=== PATIENT | female | born 1945 | race African-American/Black ===

== ENCOUNTER 2023-11-08 10:00 | Outpatient (RCR) | payer MEDICARE, MEDICAID, SELFPAY ==
--- NOTE | 2023-11-08 12:05 | OPREHPOC ---
Outpatient Therapy Plan of Care This is a Multidisciplinary Plan of Care that may contain components documented by all disciplines (PT, OT, and ST.) PT Problem 1 PT Problem #1 Knowledge Deficit PT Goal 1 Goal *indep with HEP *indep with self management of lymphedema: compression garment don/doffing, indep self manual lymph drainage Target Visit 10 PT Problem 2 PT Problem #2 Pain PT Goal 1 Goal *no pain over L arm Target Visit 10 PT Problem 3 PT Problem #3 Impaired Strength PT Goal 1 Goal increase strength of L shoulder, to improve using L arm for self and home activities: in standing L active shoulder ROM x 5 reps: 1* flexion to 95' 2* abduction to 90' Target Visit 10 PT Problem 4 PT Problem #4 Impaired Lymphatic System PT Goal 1 Goal decrease lymphedema over L UE: 1* circumferential measurement to 44 cm: 310 cm 2* no edema over dorsum of hand 3* no fibrotic tissue over forearm 4* pt obtain correct compression garment for L UE Target Visit 10
--- NOTE | 2023-11-08 12:05 | PTOPEVAL1 ---
Assessment and note entered by Myah Christy, PT Evaluation Information Assessment Status Evaluation Diagnosis L UE lymphedema, post mastectomy syndrome Other ICD-10 Condition Codes ( I 97.2 PT) Onset past year Subjective Information arm was swelling off/on since surgery and always went down in size, now staying big all the time; problems using L arm and lifting it up; have help at home with laundry, dishes; problems with clothes fitting over her L arm; does not drive--family or service rides; is R hand dominant; Reported Pain Level Pain Score 3: Self Report Additional Pain Score Comments light pain in L arm; heavy when try to lift arm, sore; Assessment PT Clinical Summary Jennifer has lymphedema over L UE, s/p breast mastectomy with radiation and chemotherapy in 2019. She has had treatment in the past, but reports arm is more swollen now and staying bigger. Issues with fit of clothing, unable to lift arm up and use arm much with home and self care tasks. With the evaluation: circumferential measurement of L arm is 99.7 cm larger than R with fibrotic tissue over forearm and puffy dorsum of hand and fingers; L shoulder decreased ROM and strength; Skilled PT services are indicated for lymphedema treatment: to include multilayer compression wraps, compression pump, L shoulder exercises and ROM increase with education for home exercises, self management of lymphedema and compression garment for her to obtain. Plan of Care Interventions Intermittent Compression pump,Lymphedema Compression Wraps Manual Lymph Drainage,Neuro Re-education,Patient Educati,Therapeutic Exercise,Other Other Interventions taping PT Services Indicated Yes Treatment Frequency and 2-3x/wk for 10 visits Duration These treatments will address the objective and functional deficits as defined above. The patient will be advanced safely and appropriately in order for the patient to progress towards his/her prior level of function. Additional exercises will be introduced and as well as a comprehensive home exercise program upon discharge, if needed, ?to ensure carryover of functional gains achieved in the clinic. This treatment plan has been reviewed and agreement upon by the patient.
--- NOTE | 2023-11-17 11:51 | PCPTNOTE ---
on 11-09-23: received a call from [phone], extension [phone], Marjorie--she asked about what garment pt needs; left message with the info; today--Jennifer called and asked about her compression reduction kit--she had not heard from insurance yet. Gave her above # to contact and get info about it.
--- NOTE | 2023-11-22 09:49 | PCPTNOTE ---
talked with pt and insurance rep on phone. Pt gave permission for her info to be faxed to [facility] for insurance auth for reduction kit. Also have order from for the compression kit and faxed to [facility]. Late entry for 11-18-23;
--- NOTE | 2023-12-09 13:37 | PCPTNOTE ---
pt did not show for today's appt; called her, she stated she did not have her velcro garment yet. Informed her of her next appt and to call if cannot come in.
--- NOTE | 2023-12-12 15:44 | PCPTNOTE ---
pt did not show for today's appt; called and talked with her. She stated she does not have her velcro garment reduction kit yet from her insurance. Discussed with her starting compression wraps for her arm. She stated she did not want her hand to be wrapped, because she cannot get it wet. Discussed wearing a glove that is waterproof over her L hand. She did not know what she wanted to do. She did say she will call her insurance company and see when she should expect it to arrive.
--- NOTE | 2023-12-20 11:06 | PCPTNOTE ---
pt called and canceled today's appt;
--- NOTE | 2023-12-23 11:55 | PCPTNOTE ---
pt did not show for today's appt; I called her, she stated she did not have her reduction kit yet for her arm. She is not interested in the compression wraps. Informed her that her remaining appt will be canceled. She is to call if any questions or when she gets her garment.
--- NOTE | 2024-01-24 12:01 | PCPTNOTE ---
PHYSICAL THERAPY DISCHARGE Dr. Cheryl Rodriguez had the PT evaluation on November 07 for UE lymphedema. She did not want the compression wraps for her L UE, but was interested in the velcro garment for compression. She was not able to obtain the required garment for treatment, so she did not return for treatment. Discharge PT. The goals were not addressed.
== END 2024-01-23 11:40 | disposition home or self-care (01) ==
LOC: ANHPT 10:00
PROVIDERS: PCP Internal Medicine Infectious Disease; Visit Provider Internal Medicine Infectious Disease
DX: I97.2 Postmastectomy lymphedema syndrome (principal)
CPT/HCPCS: 97162; 97530

== ENCOUNTER 2024-07-24 14:23 | Outpatient (CLI) | payer MEDICARE, MEDICAID, SELFPAY ==
--- NOTE | ~2024-07-24 | US_ITS ---
US breast LT limited 07/24/2024 14:55 Indication: Status post double mastectomy. Left chest lump. Procedure: High-resolution Limited ultrasound of the left chest in the area of palpable lump Comparison: No prior studies for comparison. Findings: In the area of palpable concern there is an oval circumscribed hypoechoic mass with interna l vascularity and posterior acoustic enhancement measuring 1.6 x 1.6 x 1 cm. No other masses are seen . Impression: 1: Complex heterogeneous 1.6 cm left chest wall mass in the area of palpable concern. BI-RADS CATEGORY 4-SUSPICIOUS ABNORMALITY RECOMMENDATION: Ultrasound-guided left chest wall biopsy recommended. Reviewed, dictated and finalized at location A. Impression: 1: Complex heterogeneous 1.6 cm left chest wall mass in the area of palpable co ncern. BI-RADS CATEGORY 4-SUSPICIOUS ABNORMALITY RECOMMENDATION: Ultrasound-guided left chest wall biopsy recommended.
--- OUTSIDE RECORDS SUMMARY | 2024-07-24 16:40 | XMS_ITS | Clinical Summary ---
Author Organization [facility] [employer] [facility] Address [address] [place] [address] Care Team Providers Care Procedure Rn Name Role Phone Cheryl Ramos MD Primary Care Provider Source Comments [facility],non-owned Affiliates and Associated Physician Practices is amultiple site organization consisting of ambulatory clinics and hospital sitesin [place] and [place]. This disclosure is being madepursuant to the Care Everywhere program and may not contain all information available regarding this patient. Last updated 17.[facility] [employer] [facility] Allergies Active Allergy Reactions Criticality Noted Date Comments Lisinopril Anaphylaxis High 07/26/2018 Losartan Swelling 02/21/2023 Tongue swelling Oxycodone Urticaria Medium 11/14/2023 Medications * Be aware that medications may not be up to date on this document. Alwaysverify current medications with the patient. simvastatin (ZOCOR) 40 MG tablet Take 1 (one) tablet by mouth once daily 9 Active losartan-hydroC HLOROthiazide (HYZAAR) 100-12.5 MG tablet Take 1 (one) tablet by mouth once daily 9 Active ibuprofen (MOTRIN) 600 MG tablet Take 1 tablet by mouth every 6 hours as needed for Pain 40 tablet 9 Active docusate sodium (COLACE) 100 MG capsule Take 1 capsule by mouth once daily 40 capsule 9 Active Additional Information Patient taking differently:100 mg OralDAILY PRN, Reported on 09/26/2023 irbesartan-hydr oCHLOROthiazide (AVALIDE) 150-12.5 MG tablet Take 1 (one) tablet by mouth once daily 9 Active carvedilol (Coreg) 12.5 MG tablet Take 1 (one) tablet by mouth 2 times daily Active potassium chloride ER (Klor-Con M) 20 MEQ tablet Take 1 (one) tablet by mouth once daily Active pantoprazole EC (Protonix) 20 MG tablet Take 1 (one) tablet by mouth once daily Active hydrALAZINE (Apresoline) 25 MG tablet Take 1 (one) tablet by mouth 2 times daily Active furosemide (Lasix) 40 MG tablet Take 1 (one) tablet by mouth once daily Active ferrous sulfate EC (Ferrous Sulfate) 324 (65 Fe) MG tablet Take 1 (one) tablet by mouth once daily 4 Active vitamin D, ergocalciferol, (Drisdol) 1.25 MG (97849 UT) capsule Take 1 (one) capsule by mouth every 7 days 4 Active dilTIAZem coated beads 24hr (Cardizem CD) 240 MG capsule Take 1 (one) capsule by mouth once daily Active calcitriol (Rocaltrol) 0.25 MCG capsule Take 1 (one) capsule by mouth once daily Active aspirin (Aspirin) 81 MG chew tablet Take 1 (one) tablet by mouth once daily Active mometasone (Nasonex) 50 MCG/ACT nasal spray Baudette 1 (one) spray to 2 (two) sprays into each nostril once daily 51 g 3 4 Active Active Problems Problem Noted Date Diagnosed Date 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 Follow up PRN. Essential hypertension 07/28/2018 Assessment & Plan (03/12/2019 3:55 PM MARINE DIESEL TECHNICIAN): No changes today. Continue coreg 3.125mg BID, and Irbesartan/HCTZ 150/12.5mg. Hyperlipidemia 07/28/2018 Nonspecific abnormal electrocardiogram (ECG) (EK G) 07/28/2018 SPARKS (dyspnea on exertion) 07/28/2018 Assessment & Plan (03/12/2019 3:55 PM MARINE DIESEL TECHNICIAN): Suspect secondary to deconditioning. Follow UP PRN. DSE negative for ischemia with no significant valvular abnormalities along with normal EF. Grade I diastolic dysfunction. HTN management, per PCP. Immunizations Immunization Administration Dates Next Due INFLUENZA VACCINE 01/02/2019,02/17/2018 INFLUENZA VACCINE, ADJUVANTE D, TRIV. (FLUAD TRIVALENT; 65Y+) (AIIV3) 02/07/2018 PNEUMOCOCCAL PCV7 CONJ, PEDS 02/02/2019 Family History Medical History Relation Name Comments CAD (Coronary Artery Disease) Neg Hx CVA Neg Hx Cancer - Colon Neg Hx Cancer - Ovarian Neg Hx Cancer - Prostate Neg Hx Cancer - Uterine Neg Hx Depression Neg Hx Diabetes - Gestational Neg Hx Diabetes - Type 1 Neg Hx Diabetes - Type 2 Neg Hx Hyperlipidemia Neg Hx Hypertension Neg Hx Osteoporosis Neg Hx Pulmonary Embolism Neg Hx Social History Tobacco Use Types Packs/Day Years Used Date Smoking Tobacco: Never Smokeless Tobacco: Never Tobacco Cessation:Counseling Given: Not Answered Alcohol Use Standard Drinks/Week Comments No 0 (1 standard drink = 0.6 oz pur e alcohol) Comments No Sex and Gender Information Value Date Recorded Sex Assigned at Not on file Legal Sex Female 8:43 AM MARINE DIESEL TECHNICIAN Gender Identity Not on file Sexual Orientation Not on file Last Filed Vital Signs Vital Sign Reading Time Taken Comments Blood Pressure 189/72 11/14/2023 12:47 PM CDT Pulse 62 11/14/2023 12:47 PM CDT Temperature 36.9 C (98.4 F) 08/06/2018 8:36 AM CDT Respiratory Rate 16 08/06/2018 8:36 AM CDT Oxygen Saturation 97% 11/14/2023 12:47 PM CDT Inhaled Oxygen Concentration - - Weight 64.4 kg (142 lb) 11/14/2023 12:47 PM CDT Height 167.6 cm (5' 6 ) 11/14/2023 12:47 PM CDT Body Mass Index 22.92 11/14/2023 12:47 PM CDT Plan of Treatment Upcoming Encounters Date Type Department Care Team (Late st Contact Info) Description 11/12/2024 12:30 PM CDT Testing Visit [facility] - [facility]NT [address] [place] [address] Arvind Frye, PhD [address] [place] [address] 11/12/2024 1:00 PM CDT Office Visit [facility] - [facility] [address], [place] [address] Skinny Costa MD [address] [facility] [address] [place] [address] Health Maintenance Due Date Last Done Comments BONE DENSITY TESTING 1945 HEPATITIS C SCREENING 06/15/1964 DTAP/TDAP/TD VACCINES (1 - Tdap) 1965 PNEUMOCOCCAL VACCINE 50+ (1 of 1 - PCV) 1996 ZOSTER VACCINE (1 of 2) 1996 Respiratory Syncytial Virus (RSV) Vaccine Pt: or over 60 yrs (1 - 1-dose 75+ series) 2021 COVID-19 VACCINE ( - 2023-2 5 season) 2023 DEPRESSION SCREENING 04/04/2024 MEDICARE AWV CALENDAR YEAR 2024 INFLUENZA VACCINE (Season Ended) 2024 01/02/2019, 02/17/2018, 02/07/2018 HEPATITIS B VACCINE Aged Out No longe r eligible based on patient's age to complete this topic HIB VACCINE Aged Out No longer eligi ble based on patient's age to complete this topic HPV VACCINE Aged Out No longer eligi ble based on patient's age to complete this topic MENINGOCOCCAL (Group B) VACCINE SHARED DECISION-MAKING Aged Out No longer eligible based on patient's age to complete this topic MENINGOCOCCAL GROUPS A/C/Y/W VACCINE Aged Out No longer eligible b ased on patient's age to complete this topic Insurance MEDICAID - [place] [facility] MANAGED MEDICARE ADV Advance Directives * Full Code (Latest Code Status on File) Date Activated Date Inactivated Comments 08/03/2018 3:27 PM 08/06/2018 2:22 PM Care Teams Procedure Rn Relationship Specialty Start Date End Date Cheryl Ramos MD [address] [place], [place] [id number] PCP - General 11/08/18
--- OUTSIDE RECORDS SUMMARY | 2024-07-24 16:40 | XMS_ITS ---
Author Organization [facility] Address [address] [place], [place] [id number] Care Team Providers Care Aoc Aadc Operations Staff Officer Name Role Phone KYLEIGH LEIVA Unavailable [phone] Cheryl Ramos Unavailable Unavailable REASON FOR VISIT *General care Medications Medication SIG (Take, Route, Fr equency, Duration) Notes Start Date End Date Status traMADol HCl 50 MG 1 tablet as needed O rally Every 4-6 hours for 5 days 03/10/2023 Active Encounters Encounter Location Date Provider Diagnosis [facility] [address] [place], [place] [id number] 03/12/2024 KYLEIGH LEIVA Fungal infection of nail B35.1 ; Pain in right toe(s) M79.674 ; Pain in left toe(s) M79.675 and 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, bilateral legs I70.213 Assessments Encounter Date Diagnosis (ICD Code) Assessment Notes Treatment Notes Treatment Clinical Notes Section Notes 03/12/2024 Fungal infection of nail (ICD-10 - B35.1) Nails 1-5 Bilateral were debrided extensively with nail nippers and emery board, reducing length and girth to pink healthy tissue with any subungual debris and necrotic tissue removed 03/12/2024 Pain in right toe(s) (ICD-10 - M79.674) 03/12/2024 Pain in left toe(s) (ICD-10 - M79.675) 03/12/2024 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, bilateral legs (ICD-10 - I70.213) Plan Of Treatment Treatment Notes Assessment Notes Fungal infection of nail Nails 1-5 Bilat eral were debrided extensively with nail nippers and emery board, reducing length and girth to pink healthy tissue with any subungual debris and necrotic tissue removed Next Appt Details Follow Up: 9 weeks, Reason: Provider Name:KYLEIGH C WENDI ARMANI, 09/10/2024 02:20:00 PM, [address] [facility] [address], [place], [id number], Progress Notes * INDU COURTNEYDOB: [birth year] (79 yo F)Acc No.[id number]:03/12/2024 Patient: COURTNEY MOISE Provider: Emilie Leiva DPM :1945 A ge:78 Y S ex:Female Date:03/12/2024 Address:[address] [place], [place] [id number] Subjective: * Chief Complaints: * * General care * HPI: H PI: General care P atient presents to the office for at risk foot care. Patient states that their nails are thickened, elongated and painful. Patient states that it is aggravated by shoe gear. Onset is gradual. Patient denies being diabetic. Patient denies taking prescription blood thinners but does take a daily aspirin. Date last seen by Dr. ramos was 02/2024. Initials sea. * ROS: G eneral / Constitutional: Patient denies c hange in appetite, fatigue, chills, fever.? C ardiovascular: Chest pain d enies. N eurologic: Loss of use of extremity d enies. * Medical History: * Surgical History: * Hospitalization/Major Diagno stic Procedure: * Medications: T akingtraMADol HCl 50 MG Tablet 1 tablet as needed Orally Every 4-6 hours Medication List reviewed and reconciled with the patientTaking traMADol HCl 50 MG Tablet 1 tablet as needed Orally Every 4-6 hours Medication List reviewed and reconciled with the patient Objective: * Vitals: * Examination: P hysical Examination: Gen: T he patient is awake, alert, well developed, well groomed and well nourished. They are in no apparent distress. . Musc: F oot structure is normal bilateral. Muscle strength is 5/5 to all joints bilaterally. There is no pain on palpation. . Derm: T here is absent hair growth on bilateral feet. There are pigmentary changes of bilateral foot. The skin color is red. The skin texture is thin and shiny. Distal cooling noted in bilateral feet. Nails are thick, discolored, and dystrophic with subungual debris. They are painful to palpation. . Neuro: G rossly intact to light touch bilateral . Vasc: P osterior tibialis pulse 0/4 bilaterally. Dorsalis pedis pulse 0/4 bilaterally. No edema noted. Capillary fill time > 3 seconds to all digits. . Assessment: * Assessment: 1. F ungal infection of nail - B35.1 (Primary) 2 . P ain in right toe(s) - M79.674 3 . P ain in left toe(s) - M79.675 4 . A therosclerosis of big sandy arteries of extremities with intermittent claudication, bilateral legs - I70.213 ? Plan: * Treatment: * Procedure Codes: * Follow Up: 9 weeks * Billing Information: * Visit Code: 16829 Office Visit, Est Pt., Level 3. * Procedure Codes: * Sign off status: Completed true * Provider: Emilie Leiva DPM Date: 05/13/2023 Generated for Susanna george/Alexander/Adelfo on: 0 07/24/2024 04:40 PM CDT History and Physical Notes * HPI (History of Present Illness) Category Sub-Category Detail Notes Category Not es HPI General care Patient presents to the office for at risk foot care. Patient states that their nails are thickened, elongated and painful. Patient states that it is aggravated by shoe gear. Onset is gradual. Patient denies being diabetic. Patient denies taking prescription blood thinners but does take a daily aspirin. Date last seen by Dr. ramos was 02/2024. Initials sea Examination Category Sub-Category Detail Notes Category Not es Physical Examination Gen: The patient is awake, alert, well developed, well groomed and well nourished. They are in no apparent distress. Vasc: Posterior tibialis p ulse 0/4 bilaterally. Dorsalis pedis pulse 0/4 bilaterally. No edema noted. Capillary fill time > 3 seconds to all digits. Neuro: Grossly intact to li ght touch bilateral Musc: Foot structure is no rmal bilateral. Muscle strength is 5/5 to all joints bilaterally. There is no pain on palpation. Derm: There is absent hair growth on bilateral feet. There are pigmentary changes of bilateral foot. The skin color is red. The skin texture is thin and shiny. Distal cooling noted in bilateral feet. Nails are thick, discolored, and dystrophic with subungual debris. They are painful to palpation.
--- OUTSIDE RECORDS SUMMARY | 2024-07-24 16:40 | XMS_ITS | Clinical Summary ---
Author Organization [facility] Address [address] [place] [address] Care Team Providers Care Professor Of Surgery Name Role Phone Mark Ferrer MD, Wilder P Unavailable [phone] Cheryl Simon MD Primary Care Provider [phone] Allergies Active Allergy Reactions Criticality Noted Date Comments Losartan Swelling 02/21/2023 Tongue swelling Medications carvedilol (COREG) 12.5 MG tablet Take 1 tablet (12.5 mg total) by mouth 2 (two) times daily. Active dilTIAZem CD (CARDIZEM CD) 240 MG 24 hr capsule Take 120 mg by mouth daily. Active simvastatin (ZOCOR) 40 MG tablet Take 1 tablet (40 mg total) by mouth nightly at bedtime. Active calcitriol (ROCALTROL) 0.25 MCG capsule Take 1 capsule (0.25 mcg total) by mouth daily. Active hydrALAZINE (APRESOLINE) 50 MG tablet Take 0.5 tablets (25 mg total) by mouth 2 (two) times daily. Active furosemide (LASIX) 40 MG tablet Take 1 tablet (40 mg total) by mouth daily. Active famotidine (PEPCID) 20 MG tablet Take 1 tablet (20 mg total) by mouth daily. Active aspirin 81 MG chewable tablet Chew 1 tablet (81 mg total) by mouth daily. Active docusate sodium (COLACE) 100 MG capsule Take 1 capsule (100 mg total) by mouth daily. Active loratadine (CLARITIN) 10 MG tablet Take 1 tablet (10 mg total) by mouth daily. Active potassium chloride CR (KLOR-CON M) 20 MEQ tablet Take 1 tablet (20 mEq total) by mouth daily. Active Encounters Date Type Department Care Team Description 07/09/2024 1:14 PM CDT - 07/09/2024 11:59 PM CDT Hospital Encounter [facility] Mammography [address] [place] [address] Cheryl Simon MD Discharge Disposition: Home or Self Care (Routine Discharge) 07/09/2024 Travel 05/30/2024 Travel from Last 3 Months Social History Tobacco Use Types Packs/Day Years Used Date Smoking Tobacco: Never Smokeless Tobacco: Never Alcohol Use Standard Drinks/Week Comments Not Currently 0 (1 standard drink = 0.6 oz pur e alcohol) Comments No Sex and Gender Information Value Date Recorded Sex Assigned at Female 04/30/2024 3:45 PM STOREPERSON Legal Sex Female 5:55 PM CDT Gender Identity Not on file Sexual Orientation Not on file Last Filed Vital Signs Vital Sign Reading Time Taken Comments Blood Pressure 157/59 03/04/2023 12:40 PM STOREPERSON Pulse 72 03/04/2023 12:40 PM STOREPERSON Temperature 36.4 C (97.5 F) 03/04/2023 12:40 PM STOREPERSON Respiratory Rate 16 03/04/2023 12:40 PM STOREPERSON Oxygen Saturation 96% 03/04/2023 12:40 PM STOREPERSON Inhaled Oxygen Concentration - - Weight 66.3 kg (146 lb 2.6 oz) 03/04/2023 9:00 A M STOREPERSON Height 167.6 cm (5' 6 ) 03/04/2023 9:00 AM STOREPERSON Body Mass Index 23.59 03/04/2023 9:00 AM STOREPERSON Plan of Treatment Health Maintenance Due Date Last Done Comments Hepatitis C 1963 Annual Medicare Wellness Visit 06/21/2011 RSV Immunization or 60+ Years (1 - 1-dose 75+ series) 2021 Zoster Vaccines (3 of 3) 03/17/2023 01/20/2023, 10/03 COVID-19 Vaccine ( season) 2023 08/18/2022, 11/04/2021, 02/27/2021, Additional history exists DTaP, Tdap and Td Vaccines (2 - Td or Tdap) 01/29/2029 01/29/2019 Pneumococcal Vaccine: 50+ Years Completed 09/19/2020, 02/15/2020, 02/02/2019, Additional history exists Dexa Scan (General) Completed 05/30/2024 Meningococcal B Vaccine Aged Out No l onger eligible based on patient's age to complete this topic Meningococcal Vaccine Aged Out No michael oswald eligible based on patient's age to complete this topic RSV Immunizations Under 20 Months Aged Out No longer eligible based on patient's age to complete this topic Procedures Procedure Name Priority Date/Time Associated Diagnosis Comments US BREAST RT [employer] Routine 07/09/2024 2:10 PM CDT Unspecified lump in the right breast, upper outer quadrant MG DIAG W NATHALIA RT DIGI Routine 07/09/2024 1:37 PM CDT Unspecified lump in the right breast, unspecified quadrant BONE DENSITY/DEXA Routine 05/30/2024 10: 17 AM STOREPERSON Asymptomatic menopausal state from Last 3 Months Results * US BREAST RT [employer] (07/09/2024 2:10 PM CDT) Anatomical Region Laterality Modality Breast Right Ultrasound 07/09/2024 1:54 PM CDT Impressions 07/09/2024 1:58 PM CDT ===== IMPRESSION: ===== 1. No mammographic findings suggestive of malignancy. No imaging abnormality to correspond with the patient's palpable lump. 2. No imaging of the left breast is provided today, according to the patient's history and electronic medical record, previously in 2022 left chest wall biopsy was recommended, patient does not recall this. Clinical follow-up recommended for need for additional left-sided imaging or biopsy. Assessment: ACR BI-RADS 2 - BENIGN FINDING(S) Recommendation: 1: Routine Screening Bilateral Comments: In the setting of palpable abnormality with negative imaging findings, need for further evaluation or palpation guided biopsy to be determined clinically. Results and recommendations discussed with the patient in person by Dr. Mendenhall. Technologist, Yue, isaiah. Ordered By: CHERYL SIMON Interpreted By: Masood Mendenhall, 07/09/2024 1:54 PM Narrative 07/09/2024 1:58 PM CDT [facility] [address] [place] [address] Examination: Unilateral right diagnostic mammogram and ultrasound [id number] Exam Date/Time: 07/09/2024 1:21 PM Reason For Exam: Palpable lump right breast. Prior left mastectomy for breast cancer. Comparison: 03/14/2023 Technique: Digital diagnostic mammography and ultrasound of the of the rightbreast was performed. This study was read with the assistance of a computer-aided detection system. 3D tomographic images were obtained. Tissue density: There are scattered areas of fibroglandular density. Findings: Mammogram: No suspicious microcalcification, architectural distortion, or mass. No significant interval change. No mammographic abnormality to correspond with the patient's right breast palpable lump. Ultrasound: 2:00 position 7 cm from the nipple and 6:00 position. Normal glandular tissue, normal subcutaneous tissue, no evidence of abnormal mass or collection. Procedure Note Masood Mendenhall MD - 07/09/2024 [facility] [address] [place] [address] Examination: Unilateral right diagnostic mammogram and ultrasound [id number] Exam Date/Time: 07/09/2024 1:21 PM Reason For Exam: Palpable lump right breast. Prior left mastectomy for breast cancer. Comparison: 03/14/2023 Technique: Digital diagnostic mammography and ultrasound of the of therightbreast was performed. This study was read with the assistance of [employer]-aided detection system. 3D tomographic images were obtained. Tissue density: There are scattered areas of fibroglandular density. Findings: Mammogram: No suspicious microcalcification, architectural distortion, ormass. No significant interval change. No mammographic abnormality tocorrespond with the patient's right breast palpable lump. Ultrasound: 2:00 position 7 cm from the nipple and 6:00 position. Normalglandular tissue, normal subcutaneous tissue, no evidence of abnormal massor collection. ===== IMPRESSION: ===== 1. No mammographic findings suggestive of malignancy. No imagingabnormality to correspond with the patient's palpable lump. 2. No imaging of the left breast is provided today, according to thepatient's history and electronic medical record, previously in 2022 leftchest wall biopsy was recommended, patient does not recall this. Clinicalfollow-up recommended for need for additional left-sided imaging orbiopsy. Assessment: ACR BI-RADS 2 - BENIGN FINDING(S) Recommendation: 1: Routine Screening Bilateral Comments: In the setting of palpable abnormality with negative imagingfindings, need for further evaluation or palpation guided biopsy to bedetermined clinically. Results and recommendations discussed with the patient in person by . Technologist, isaiah Turner. Ordered By: CHERYL SIMON Interpreted By: Masood Mendenhall, 07/09/2024 1:54 PM us Cheryl Simon MD ULTRASOUND Final Result * MG TARASG W NATHALIA RT DIGI (07/09/2024 1:37 PM CDT) Anatomical Region Laterality Modality Breast Right Mammography 07/09/2024 1:54 PM CDT Impressions 07/09/2024 1:58 PM CDT ===== IMPRESSION: ===== 1. No mammographic findings suggestive of malignancy. No imaging abnormality to correspond with the patient's palpable lump. 2. No imaging of the left breast is provided today, according to the patient's history and electronic medical record, previously in 2022 left chest wall biopsy was recommended, patient does not recall this. Clinical follow-up recommended for need for additional left-sided imaging or biopsy. Assessment: ACR BI-RADS 2 - BENIGN FINDING(S) Recommendation: 1: Routine Screening Bilateral Comments: In the setting of palpable abnormality with negative imaging findings, need for further evaluation or palpation guided biopsy to be determined clinically. Results and recommendations discussed with the patient in person by Dr. Mendenhall. Technologist, isaiah Turner. Ordered By: CHERYL SIMON Interpreted By: Masood Mendenhall, 07/09/2024 1:54 PM Narrative 07/09/2024 1:58 PM CDT [facility] [address] [place] [address] Examination: Unilateral right diagnostic mammogram and ultrasound [id number] Exam Date/Time: 07/09/2024 1:21 PM Reason For Exam: Palpable lump right breast. Prior left mastectomy for breast cancer. Comparison: 03/14/2023 Technique: Digital diagnostic mammography and ultrasound of the of the rightbreast was performed. This study was read with the assistance of a computer-aided detection system. 3D tomographic images were obtained. Tissue density: There are scattered areas of fibroglandular density. Findings: Mammogram: No suspicious microcalcification, architectural distortion, or mass. No significant interval change. No mammographic abnormality to correspond with the patient's right breast palpable lump. Ultrasound: 2:00 position 7 cm from the nipple and 6:00 position. Normal glandular tissue, normal subcutaneous tissue, no evidence of abnormal mass or collection. us Cheryl Simon MD MAMMO Final Result * BONE DENSITY/DEXA (05/30/2024 10:17 AM STOREPERSON) Anatomical Region Laterality Modality Bone Mammography 05/30/2024 10:2 2 AM STOREPERSON Impressions 05/30/2024 10:22 AM STOREPERSON IMPRESSION: WHO Classification: Osteopenia RECOMMENDATIONS: All patients should ensure an adequate intake of dietary calcium and vitamin D. The NOF recommend adults under the age of 50 need 1000 mg of calcium and 400-800 IU of vitamin D daily. Effective therapy for the prevention and treatment of osteoporosis include bisphosphonates. Follow-up: People with diagnosed cases of osteoporosis or at high risk for fracture should have regular bone mineral density test. For patients eligible for Medicare, routine testing is allowed once every 2 years. Testing frequency can be increased to one year for patients who have rapidly progressing disease, those who are receiving or discontinuing medical therapy to restore bone mass, or have additional risk factors. Referred By: CHERYL SIMON Interpreted By: Matthew Haji MD, 05/30/2024 10:22 AM Narrative 05/30/2024 10:22 AM STOREPERSON [facility] [address] [place] [address] EXAMINATION: BONE DENSITY/DEXA INDICATIONS: Asymptomatic menopausal state COMPARISON: None TECHNIQUE: DEXA bone mineral density evaluation was performed in the AP projection over the lumbar spine and both hips utilizing standard imaging techniques. ASSESSMENT: The BMD measured at the AP spine L1-L4 is 0.952 g/cm? with a T-score of -0.9. The BMD measured at the left femoral neck is 0.711 g/cm? with a T-score of -1.2. The BMD measured at the left hip is 0.918 g/cm? with a T-score of -0.2. The BMD measured at the right femoral neck is 0.774 g/cm? with a T-score of - 0.7. The BMD measured at the right hip is 0.964 g/cm? with a T-score of 0.2. FRAX 10-year fracture risk: Major Osteoporotic Fracture: 6.5% Hip Fracture: 1.4% Procedure Note Matthew Haji MD - 05/30/2024 [facility] [address] [place] [address] EXAMINATION: BONE DENSITY/DEXA INDICATIONS: Asymptomatic menopausal state COMPARISON: None TECHNIQUE: DEXA bone mineral density evaluation was performed in the APprojection over the lumbar spine and both hips utilizing standard imagingtechniques. ASSESSMENT: The BMD measured at the AP spine L1-L4 is 0.952 g/cm? with a T-score of-0.9. The BMD measured at the left femoral neck is 0.711 g/cm? with a T-score of-1.2. The BMD measured at the left hip is 0.918 g/cm? with a T-score of -0.2. The BMD measured at the right femoral neck is 0.774 g/cm? with a T-scoreof -0.7. The BMD measured at the right hip is 0.964 g/cm? with a T-score of 0.2. FRAX 10-year fracture risk: Major Osteoporotic Fracture: 6.5% Hip Fracture: 1.4% IMPRESSION: WHO Classification: Osteopenia RECOMMENDATIONS: All patients should ensure an adequate intake of dietary calcium andvitamin D. The NOF recommend adults under the age of 50 need 1000 mg ofcalcium and 400-800 IU of vitamin D daily. Effective therapy for theprevention and treatment of osteoporosis include bisphosphonates. Follow-up: People with diagnosed cases of osteoporosis or at high risk for fractureshould have regular bone mineral density test. For patients eligible forMedicare, routine testing is allowed once every 2 years. Testing frequencycan be increased to one year for patients who have rapidly progressingdisease, those who are receiving or discontinuing medical therapy torestore bone mass, or have additional risk factors. Referred By: CHERYL SIMON Interpreted By: Matthew Haji MD, 05/30/2024 10:22 AM Cheryl Simon MD DEXA Final Result from Last 3 Months Insurance MEDICAID [facility] Care Teams Professor Of Surgery Relationship Specialty Start Date End Date Cheryl Simon MD [address] [place] [address] PCP - General INTERNAL MEDICINE 02/21/23 [place] [id number] [phone] CARDIOVASCULAR DISEASE 02/21/23
--- OUTSIDE RECORDS SUMMARY | 2024-07-24 16:40 | XMS_ITS | CONTINUITY OF CARE DOCUMENT ---
Author Name yovani pina Address Unknown Organization [facility] Address [address] [place] [address] Phone [phone] Care Team Providers Care Bread Molder Name Role Phone Wilder Flores MD Unavailable [phone] SABRINA SIMON MD Unavailable [phone] SABRINA SIMON MD Unavailable [phone] PROBLEMS Condition Status Date Provider Notes Cardiology examination active Wiledr Flores MD Hyperlipidemia active Wilder Flores MD Hypertension active Wilder Flores MD Breast Cancer active Wilder Flores MD (Hist ory of) Pulmonary hypertension active Wilder Flores MD Leg pain, right active Mariana Ventimiglia 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 Mitral regurgitation, mild active Mariana Ve ntimiglia INSTRUCTOR OF NURSING Bradycardia active Mariana Ventimiglia INSTRUCTOR OF NURSING ENCOUNTERS Date Type Provider Location Encounter Diag nosis - In-person encounter Office Visit Seymour Morales MD [facility] Office - In-person encounter Office Visit Wilder Flores MD [place] [facility] - In-person encounter Office Visit Wilder Flores MD [facility] Bradycardia - In-person encounter Office Visit Wilder Flores MD [place] [facility] - In-person encounter Office Visit Wilder Flores MD [place] [facility] - In-person encounter Office Visit Wilder Flores MD [facility] Leg pain, rightMitral regurgitation, mil d - In-person encounter Office Visit Wilder Flores MD [place] [facility] - In-person encounter Office Visit Wilder Flores MD [facility] Cardiology examinationHyperlipidemiaHypertensionBreast CancerPulmonary hypertension VITAL SIGNS Date Observation Value Provider Body Mass Index (Ratio) 23.79 kg/m2 Zelalem Morales MD blood pressure, diastolic 83 mm[Hg] Diana Segundo blood pressure, systolic 171 mm[Hg] Heather Bankss pulse rate 74 /min Ngoc charlton oxygen saturation, oximetry 97 % Ngoc Bankss weight E&M 143 [lb_av] Ngoc Banks s blood pressure, cuff size regular Diana cam Bankss height E&M 65 [in_i] Ngoc Banks s Body Mass Index (Ratio) 24.13 kg/m2 Judson Flores MD blood pressure, diastolic 88 mm[Hg] Nickie Anne blood pressure, systolic 174 mm[Hg] [facility], oximetry 97 % [facility] rate E&M 16 /min [facility] pulse rate 65 /min [facility] 145 [lb_av] [facility] blood pressure, cuff size regular Nickie Anne height E&M 65 [in_i] Darianstefany Anne Body Mass Index (Ratio) 24.13 kg/m2 Judson Flores MD blood pressure, diastolic 83 mm[Hg] Taylor nkLogic blood pressure, systolic 169 mm[Hg] Yaritza kLog blood pressure, cuff size regular [facility], diastolic 83 mm[Hg] [facility] blood pressure, systolic 169 mm[Hg] Lynette [facility] oxygen saturation, oximetry 98 % [facility] respiratory rate E&M 16 /min [facility] pulse rate 51 /min [facility] weight E&M 145 [lb_av] [facility] height E&M 65 [in_i] [facility] Body Mass Index (Ratio) 24.29 kg/m2 Judson Flores MD blood pressure, cuff size regular Fabrice [facility] blood pressure, diastolic 67 mm[Hg] [facility] blood pressure, systolic 129 mm[Hg] [facility] pulse rate 57 /min [facility] oxygen saturation, oximetry 97 % [facility] respiratory rate E&M 12 /min [facility] weight E&M 146 [lb_av] Ernst height E&M 65 [in_i] Ernst [facility] y Body Mass Index (Ratio) 25.79 kg/m2 Judson Flores MD blood pressure, diastolic 73 mm[Hg] Jessica Stafford blood pressure, systolic 140 mm[Hg] Mag Stafford pulse rate 51 /min Abbie Stafford blood pressure, cuff size large An nilam Stafford oxygen saturation, oximetry 97 % Abbie Stafford weight E&M 155 [lb_av] Abbie Stafford height E&M 65 [in_i] Abbie Rivera Body Mass Index (Ratio) 26.66 kg/m2 Judson Flores MD blood pressure, diastolic -1 mm[Hg] Taylor nkLogkaycee blood pressure, systolic 171 mm[Hg] Yaritza Ferrisogkaycee blood pressure, diastolic 78 mm[Hg] yajaira Sven blood pressure, systolic 171 mm[Hg] Jennifer roland Sven oxygen saturation, oximetry 96 % Amena Sven pulse rate 63 /min Amena Sven respiratory rate E&M 16 /min Amena Wu feliciano weight E&M 160.2 [lb_av] Amena Sven height E&M 65 [in_i] Amena Sven Body Mass Index (Ratio) 29.12 kg/m2 Judson Flores MD blood pressure, diastolic 92 mm[Hg] Sa ra Bradshaw blood pressure, systolic 198 mm[Hg] Marylin a Bradshaw oxygen saturation, oximetry 97 % Melissa Bradshaw respiratory rate E&M 18 /min Melissa Si ms pulse rate 79 /min Melissa Rbadshaw blood pressure, cuff size regular Sa ra Bradshaw weight E&M 175 [lb_av] Melissa Bradshaw height E&M 65 [in_i] Melissa Bradshaw Body Mass Index (Ratio) 29.12 kg/m2 Judson Flores MD blood pressure, diastolic 79 mm[Hg] Taylor nkLogic blood pressure, systolic 162 mm[Hg] Yaritza kLogic blood pressure, diastolic 79 mm[Hg] Ch astity Radha blood pressure, systolic 162 mm[Hg] Keren stity Radha oxygen saturation, oximetry 96 % Chastity Radha pulse rate 71 /min [facility] height E&M 65 [in_i] [facility] weight E&M 175 [lb_av] [facility] respiratory rate E&M 16 /min Ron Garcia ALLERGIES Allergy Name Onset Date Reaction Criticality Status LOSARTAN High Criticality active HISTORY OF MEDICATION USE Medication Status Instructions Dates Provider Indications Com ments carvedilol 12.5 mg tablet active TAKE 1 TABLET BY MOUTH TWICE DAILY Gladys Rushi carvedilol 12.5 mg tablet completed Take 1 tablet by mouth twice a day [facility] 50 mg tablet active TAKE 1 TABLET BY MOUTH TWICE A DAY Wilder Flores MD pantoprazole 20 mg tablet,delayed release (DR/EC) active TAKE 1 TABLET BY MOUTH EVERY MORNING Darian Anne nifedipine 90 mg tablet extended release 24hr active 1 tablet by mouth once a day Mariana Singhmiglia INSTRUCTOR OF NURSING ferrous sulfate 324 mg (65 mg iron) tablet,delayed release (DR/EC) active TAKE 1 TABLET BY MOUTH EVERY DAY Nadine Ross pantoprazole 20 mg tablet,delayed release (DR/EC) completed TAKE 1 TABLET BY MOUTH EVERY DAY - Mariana Singhmiglia INSTRUCTOR OF NURSING diltiazem HCl (Cardizem CD) 240 mg capsule,extende d release 24hr completed TAKE 1 CAPSULE BY MOUTH ONCE DAILY - Mariana Ventimiglia INSTRUCTOR OF NURSING calcitriol 0.25 mcg capsule active Take 1 capsule by mouth once a day [facility] diltiazem HCl (Cardizem CD) 240 mg capsule,extende d release 24hr completed Take 1 capsule by mouth once a day - Ernst carvedilol 12.5 mg tablet completed TAKE 1 TABLET BY MOUTH TWICE DAILY - Mariana Ventimiglia INSTRUCTOR OF NURSING diltiazem HCl 240 mg capsule,extende d release 24hr completed TAKE 1 CAPSULE BY MOUTH DAILY - Kassy Yancey hydralazine 25 mg tablet completed TAKE 1 TABLET BY MOUTH TWICE A DAY - Wilder Flores MD potassium chloride 20 mEq tablet,ER particles/cryst als active TAKE 1 TABLET BY MOUTH EVERY DAY [facility] furosemide 40 mg tablet active TAKE 1 TABLET DAILY Nadine Ross carvedilol 12.5 mg tablet completed Take 1 tablet by mouth twice a day - Gladys Mccoy diltiazem HCl 240 mg tablet extended release 24 hr completed 1 tablet once a day - Veronica Erasto carvedilol 12.5 mg tablet completed Take 1 tablet by mouth twice a day - Wilder Flores MD loratadine 10 mg tablet active Take 1 tablet by mouth once a day Yamel Garcia Aspirin Low Dose active Take 1 tablet by mouth once a day Yamel Garcia Gas Relief (simethicone) 180 mg capsule active Take 1 capsule by mouth once a day Yamel Garcia Stool Softener unspecified unspecified active Take 1 capsule by mouth as needed Yamel Garcia carvedilol 3.125 mg tablet completed TAKE ONE (1) TABLET BY MOUTH TWICE DAILY - Yamel Garcia simvastatin 40 mg tablet active TAKE 1 TABLET BY MOUTH EVERY DAY DIRECTED Yamel Garcia irbesartan-hydr ochlorothiazide 150-12.5 mg tablet completed TAKE ONE (1) TABLET BY MOUTH TWICE DAILY; *PATIENT NEEDS APPOINTMENT* - Yamel Garcia SOCIAL HISTORY Date Observation Value Provider personal history of marijuana use no Mariana Mazariegos [facility] drug use no Mariana Singhmig reji [facility] alcohol use no Marianagregory Singhmig reji [facility] passive cigarette sm kate exposure no Marianagregory [facility] smoking status Never smoker Mariana escalera [facility] personal history of marijuana use no Wilder Flores MD drug use no Wilder Wu alcohol use no Wilder Wu passive cigarette sm kate exposure no Wilder Flores MD smoking status Never smoker Wilder Flores MD personal history of marijuana use no Mariana Ventimiglia INSTRUCTOR OF NURSING drug use no Nadine Ross alcohol use no Nadine Ross passive cigarette sm kate exposure no Nadine Ross smoking status Never smoker Nadine Ross drug use no Wilder Wu alcohol use no Wilder Wu passive cigarette sm kate exposure no Wilder Flores MD smoking status Never smoker Wilder Flores MD drug use no Mariana Ventimig reji INSTRUCTOR OF NURSING alcohol use no Mariana Ventimig reji INSTRUCTOR OF NURSING passive cigarette sm kate exposure no Abbie Rivera smoking status Never smoker Abbie Stafford drug use no Mariana Ventimig reji INSTRUCTOR OF NURSING alcohol use no Mariana Ventimig reji INSTRUCTOR OF NURSING passive cigarette sm kate exposure no Amena Machuca smoking status Never smoker Amena Machuca passive cigarette sm kate exposure no Wilder Flores MD smoking status Never smoker Wilder Flores MD social history revie wed E&M reviewed - no changes required Wilder Flores MD social history E&M Marital Statu s: C hildren: 5 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 Wilder Flores MD social history revie wed E&M reviewed - no changes required Wilder Flores MD Surgical History of - Tonsillectomy Surgical History of - Tonsillectomy Wilder Flores MD FAMILY HISTORY Family Member Condition First Degree Blood Relative No Known Fam maria luisa History INSURANCE PROVIDERS Payer name Policy type / Coverage type Trish red alliance party ID [facility] COMPLETE CARE [id number] (PPO C-SNP) [employer] insurance [employer] [id number] HEALTHCARE AND FAMILY SERVICES Medicaid 0 [id number] ADVANCE DIRECTIVES Name Date DISCUSSED - NO DECISION MADE TREATMENT PLAN Date Name Performer [id number],C,A BI showed mild PAD. No reported symptoms at visit today Mariana Mazariegos [facility] [id number],Keniar amber on statin therapy H er updated medication list for this problem includes: Simvastatin 40 Mg Tablet (Simvastatin) ..... Take 1 tablet by mouth every day as directed Mariana Mazariegos [facility] [id number],C,B P 140/73 today which is acceptable for her. Will continue present medication regimen H er updated medication list for this problem includes: Carvedilol 12.5 Mg Tablet (Carvedilol) ..... Take 1 tablet by mouth twice daily Diltiazem Hcl 240 Mg Capsule,extended Release 24hr (Diltiazem hcl) ..... Take 1 capsule by mouth daily Hydralazine 25 Mg Tablet (Hydralazine) ..... 1 tablet by mouth twice a day Furosemide 40 Mg Tablet (Furosemide) Mariana Mazariegos [facility] [id number],Keniar amber unchanged on recent echo. EF of 60%. Will monitor Mariana Mazariegos [facility] [id number],Keniar amber on CCB. She will have f/u echo. Moderate on last echo. H er updated medication list for this problem includes: Hydralazine 25 Mg Tablet (Hydralazine) ..... 1 tablet by mouth twice a day Furosemide 40 Mg Tablet (Furosemide) Carvedilol 12.5 Mg Tablet (Carvedilol) ..... Take 1 tablet by mouth twice a day Diltiazem Hcl 240 Mg Tablet Extended Release 24 Hr (Diltiazem hcl) ..... 1 tablet once a day Orders: 9 9214 MOD 30-39min (CPT-37142) C omplete Echo (CPT-36494) A rterial Duplex Bi-Lower EX (CPT-98198) Mariana Mazariegos [facility] [id number],C,s he reports RLE pain with ambulation and weak DP o nthe rt will plan OSCAR. O rders: 9 9214 MOD 30-39min (CPT-30448) C omplete Echo (CPT-98240) A rterial Duplex Bi-Lower EX (CPT-63041) Marianagregory Mazariegos [facility] [id number],C,o n statin therapy H er updated medication list for this problem includes: Simvastatin 40 Mg Tablet (Simvastatin) ..... Take 1 tablet by mouth every day as directed Marianagregory Mazariegos [facility] [id number],S,M ild on last echo with mod LVH. Given her systolic murmur, fatigue and HTN will do f/u echo to look for any new LV dysfunction or worsening valvular abnormaliies O rders: 9 14 MOD 30-39min (CPT-24088) C omplete Echo (CPT-72005) A rterial Duplex Bi-Lower EX (CPT-14424) Marianagregory Mazariegos [facility] [id number],C,B lood pressure elevated at visit today and patient runs high like that at home. Have asked her to monitor BP at home for goal less than 130/80. She will be started on hydralzine BID and f/u in 6 mos or sooner if needed. H er updated medication list for this problem includes: Hydralazine 25 Mg Tablet (Hydralazine) ..... 1 tablet by mouth twice a day Furosemide 40 Mg Tablet (Furosemide) Carvedilol 12.5 Mg Tablet (Carvedilol) ..... Take 1 tablet by mouth twice a day Diltiazem Hcl 240 Mg Tablet Extended Release 24 Hr (Diltiazem hcl) ..... 1 tablet once a day [facility]reg[facility] [id number],S, Wilder gutierrez MD [id number],S, Wilder gutierrez MD [id number],S, Wilder gutierrez MD [id number],C,I nsurance didn't cover irbesartan and patient allergic to losartan. Will start diltiazem. S et up remote patient monitoring (RPM) Wilder Flores MD [id number],S, Wilder gutierrez MD [id number],S, Wilder gutierrez MD [id number],C,Increase carv edilol Wilder Flores MD [id number],N,B y ECHO P atient with minimal symptoms at this time. Will check stress test. Wilder Flores MD Cardiology Mariana cobb [facility] Cardiology: H er updated medication list for this problem includes: Simvastatin 40 Mg Tablet (Simvastatin) ..... Take 1 tablet by mouth every day as directed Mariana Mazariegos [facility] Cardiology:EF normal [place] Vivian gao [facility] Cardiology:BP remain s elevated patient admits ran out of coreg 1 week ago will refill E cho showed severe LVH encouraged medication compliance A lso, encouraged use of home RPM S he will return in one month or sooner if needed. T he following medications were removed from the medication list: Carvedilol 12.5 Mg Tablet (Carvedilol) ..... Take 1 tablet by mouth twice daily & #13;Her updated medication list for this problem includes: Carvedilol 12.5 Mg Tablet (Carvedilol) ..... Take 1 tablet by mouth twice a day Hydralazine 50 Mg Tablet (Hydralazine) ..... Take 1 tablet by mouth twice a day Nifedipine 90 Mg Tablet Extended Release 24hr (Nifedipine) ..... 1 tablet by mouth once a day Furosemide 40 Mg Tablet (Furosemide) ..... Take 1 tablet daily Mariana Mazariegos [facility] Cardiology Wilder Flores MD Cardiology: r emains on CCB. She will have f/u echo. Moderate on last echo. H er updated medication list for this problem includes: Hydralazine 25 Mg Tablet (Hydralazine) ..... 1 tablet by mouth twice a day Furosemide 40 Mg Tablet (Furosemide) Carvedilol 12.5 Mg Tablet (Carvedilol) ..... Take 1 tablet by mouth twice a day Diltiazem Hcl 240 Mg Tablet Extended Release 24 Hr (Diltiazem hcl) ..... 1 tablet once a day Orders: 9 9214 MOD 30-39min (CPT-98855) C omplete Echo (CPT-86342) A rterial Duplex Bi-Lower EX (CPT-12099) Wilder Flores MD Cardiology Wilder Flores MD Cardiology:This visi t has been a part of the consistent, comprehensive, and ongoing management of the chronic medical condition(s) listed above for the patient. I ncrease hydralazine to 50mg bid Wilder Flores MD Cardiology:Will update echo Les Torres [facility] Cardiology: H er updated medication list for this problem includes: Simvastatin 40 Mg Tablet (Simvastatin) ..... Take 1 tablet by mouth every day as directed Marianagregory Mazariegos [facility] Cardiology:With HR i n 50s on exam W ill stop CCB P esau 2 week tele T he following medications were removed from the medication list: Diltiazem Hcl (cardizem Cd) 240 Mg Capsule,extended Release 24hr (Diltiazem hcl (cardizem cd)) ..... Take 1 capsule by mouth once daily Her updated medication list for this problem includes: Nifedipine 90 Mg Tablet Extended Release 24hr (Nifedipine) ..... 1 tablet by mouth once a day Carvedilol 12.5 Mg Tablet (Carvedilol) ..... Take 1 tablet by mouth twice daily Mariana Mazariegos [facility] Cardiology:BP above goal today S top diltiazem d/t bradycardia B egin nifedipine XL 90mg daily r eturn in 2 mos W ill update echo to look for any LVH of LV dysfunction T he following medications were removed from the medication list: Diltiazem Hcl (cardizem Cd) 240 Mg Capsule,extended Release 24hr (Diltiazem hcl (cardizem cd)) ..... Take 1 capsule by mouth once daily & #13;Her updated medication list for this problem includes: Nifedipine 90 Mg Tablet Extended Release 24hr (Nifedipine) ..... 1 tablet by mouth once a day Furosemide 40 Mg Tablet (Furosemide) ..... Take 1 tablet daily Hydralazine 25 Mg Tablet (Hydralazine) ..... Take 1 tablet by mouth twice a day Carvedilol 12.5 Mg Tablet (Carvedilol) ..... Take 1 tablet by mouth twice daily Mariana Yair [facility] Cardiology Wilder Flores MD Cardiology Wilder Flores MD Cardiology Wilder Flores MD Cardiology Wilder Flores MD Cardiology:OSCAR showe d mild PAD. No reported symptoms at visit today [facility] Cardiology:remains o n statin therapy H er updated medication list for this problem includes: Simvastatin 40 Mg Tablet (Simvastatin) ..... Take 1 tablet by mouth every day as directed Mariana [facility] Cardiology:BP 140/73 today which is acceptable for her. Will continue present medication regimen H er updated medication list for this problem includes: Carvedilol 12.5 Mg Tablet (Carvedilol) ..... Take 1 tablet by mouth twice daily Diltiazem Hcl 240 Mg Capsule,extended Release 24hr (Diltiazem hcl) ..... Take 1 capsule by mouth daily Hydralazine 25 Mg Tablet (Hydralazine) ..... 1 tablet by mouth twice a day Furosemide 40 Mg Tablet (Furosemide) [facility] Cardiology:remains u nchanged on recent echo. EF of 60%. Will monitor Marianagregory Sloanamee [facility] Cardiology:remains o n CCB. She will have f/u echo. Moderate on last echo. H er updated medication list for this problem includes: Hydralazine 25 Mg Tablet (Hydralazine) ..... 1 tablet by mouth twice a day Furosemide 40 Mg Tablet (Furosemide) Carvedilol 12.5 Mg Tablet (Carvedilol) ..... Take 1 tablet by mouth twice a day Diltiazem Hcl 240 Mg Tablet Extended Release 24 Hr (Diltiazem hcl) ..... 1 tablet once a day Orders: 9213 MOD 30-39min (CPT-45684) C omplete Echo (CPT-17599) A rterial Duplex Bi-Lower EX (CPT-75788) [facility] Cardiology:she repor ts RLE pain with ambulation and weak DP o nthe rt will plan OSCAR. O rders: 9213 MOD 30-39min (CPT-16714) C omplete Echo (CPT-21989) A rterial Duplex Bi-Lower EX (CPT-84142) [facility] Cardiology:on statin therapy H er updated medication list for this problem includes: Simvastatin 40 Mg Tablet (Simvastatin) ..... Take 1 tablet by mouth every day as directed [facility] Cardiology:Mild on l ast echo with mod LVH. Given her systolic murmur, fatigue and HTN will do f/u echo to look for any new LV dysfunction or worsening valvular abnormaliies O rders: 9213 MOD 30-39min (CPT-07336) C omplete Echo (CPT-24422) A rterial Duplex Bi-Lower EX (CPT-19094) [facility] Cardiology:Blood pre ssure elevated at visit today and patient runs high like that at home. Have asked her to monitor BP at home for goal less than 130/80. She will be started on hydralzine BID and f/u in 6 mos or sooner if needed. H er updated medication list for this problem includes: Hydralazine 25 Mg Tablet (Hydralazine) ..... 1 tablet by mouth twice a day Furosemide 40 Mg Tablet (Furosemide) Carvedilol 12.5 Mg Tablet (Carvedilol) ..... Take 1 tablet by mouth twice a day Diltiazem Hcl 240 Mg Tablet Extended Release 24 Hr (Diltiazem hcl) ..... 1 tablet once a day Mariana Franciscocorinnaamee LIEBERMAN Cardiology Wilder Flores MD Cardiology Wilder Flores MD Cardiology Wilder Flores MD Cardiology:Insurance didn't cover irbesartan and patient allergic to losartan. Will start diltiazem. S et up remote patient monitoring (RPM) Wilder Flores MD Cardiology Wilder Flores MD Cardiology Wilder Flores MD Cardiology:Increase carvedilol R sanchez Flores MD Cardiology:By ECHO P atient with minimal symptoms at this time. Will check stress test. Wilder Flores MD Date Name Monitor - Telemetry (Mobile Cardiac) Complete Echo Arterial Duplex Bi-L ower EX Complete Echo RPM (remote patient monitoring) Stress Regadenoson HISTORY OF PROCEDURES Procedure Date Procedure Name Provider Procedure Notes S tatus Complex e/m visit add on Seymour Morales MD completed Complex e/m visit add on Wilder Flores MD completed EKG Wilder Flores MD complete d EKG Wilder Flores MD complete d EKG Wilder Flores MD complete d
== END 2024-07-24 14:24 | disposition home or self-care (01) ==
PROVIDERS: PCP Internal Medicine Infectious Disease; Visit Provider Surgery
DX: R22.2 Localized swelling, mass and lump, trunk (principal); Z90.13 Acquired absence of bilateral breasts and nipples; Z85.3 Personal history of malignant neoplasm of breast
CPT/HCPCS: 76642

== ENCOUNTER 2024-08-02 13:57 | Outpatient (CLI) | payer MEDICARE, MEDICAID, SELFPAY ==
--- NOTE | ~2024-08-02 | US_ITS ---
EXAMINATION: US breast biopsy LT w image DATE: 08/02/2024 15:26 INDICATION: 79-year-old woman with a personal history of breast cancer post radical mastectomy approx imately 30 years earlier presents with a fixed mass of the anterior chest wall for ultrasound-guided biopsy. TECHNIQUE: The procedure including the risks, benefits, and alternatives was discussed with the patie nt. Risks discussed included bleeding, nontargeted biopsy, pneumothorax, and infection. The patient understood the risks and agreed to proceed. The skin overlying the left anterior chest wall was prepped and draped in usual sterile fashion. Ane sthetic was administered with 1% lidocaine without epinephrine subcutaneously. Limited ultrasound examination of the area of clinical concern was then again performed. Along the left anterior chest wall, approximately 4 to 5 cm from the sternum is a well-circumscribed, well vascularized 15 x 12 x 16 mm mass, suitable for biopsy. A 13G introducer was placed using ultrasound guidance into the abnormality along the anterior chest w all, and the inner needle removed. A 14-gauge biopsy device was then used to obtain 3 biopsy specimens under continuous sonographic guid ance. The biopsy device was then removed, and through the introducer a coil marker was placed. The entry site was cleaned and dressed with Steri-Strips. There were no immediate complications. No post biopsy mammogram was performed. IMPRESSION: 1. Technically successful ultrasound-guided core biopsy of a fixed mass within the left anterior ches t wall, as detailed above. Pathology pending Reviewed, dictated and finalized at location A. IMPRESSION: 1. Technically successful ultrasound-guided core biopsy of a fixed mass within the left anterior chest wall, as detailed above. Pathology pending
--- OUTSIDE RECORDS SUMMARY | 2024-08-02 14:46 | XMS_ITS | Continuity of Care Document ---
Author Organization [facility] Main Address [address] [place] [address] Insurance Providers Payer Plan Claims Address Claims Phone Policy Number Group Number Relation Employer Guarantor Name Guarantor Guarantor Address Guarantor Phone WALTER RE MARIA DOLORESC ARE [employer], [address] [address], [place] [address] tel:[phone] Self Jennifer Carson [address] [place] [id number] WALTER RE MARIA [employer]OLOR[employer] [address] [address], [place] [address] tel:[phone] Self Jennifer Carson [address] [place] [address] MED[employer] [place] - [place] - [place] [address] [address], [place] [address] [id number] Self Jennifer Carson [address] [place] [address] Problems Condition ICD9 code ICD10 code SNOMED code Start Date End Date S tatus 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 Results No Results Allergies, adverse reactions, alerts Substance Reaction Date Status Type losartan rash, mouth and tongue swelling (Severe) 2022 Drug Immunizations Vaccine Route Date Status Zoster unspecified 04/13/2023 Completed RSV 04/13/2023 Completed influenza 04/13/2023 Completed Covid-19 04/13/2023 Completed influenza 05/23/2024 Completed Covid-19 05/23/2024 Completed Pneumococcal 05/23/2024 Completed Medications No administered medications reported Vital Signs Date Vital Result Comment 07/13/2023 Inhaled Oxygen Concentration 21.0 % N Faces Pain Scale 0.0 N Temperature 97.9 [degF] N Oxygen Saturation 97 % N Respiratory Rate 16 /min N Heart Rate 71 /min N Blood Pressure Systolic 121 mm[Hg] N Blood Pressure Diastolic 77 mm[Hg] N Body Height 66 [in_i] N 01/11/2023 Inhaled Oxygen Concentration 21.0 % N Faces Pain Scale 0.0 N Temperature 97.1 [degF] N Oxygen Saturation 97 % N Respiratory Rate 16 /min N Heart Rate 64 /min N Blood Pressure Systolic 140 mm[Hg] N Blood Pressure Diastolic 70 mm[Hg] N Body Height 66 [in_i] N Body Weight 150 [lb_av] N Body Mass Index 24.2 kg/m2 N 01/23/2024 Inhaled Oxygen Concentration 21.0 % N Faces Pain Scale 0.0 N Temperature 97 [degF] N Oxygen Saturation 94 % N Respiratory Rate 18 /min N Heart Rate 64 /min N Blood Pressure Systolic 190 mm[Hg] N Blood Pressure Diastolic 88 mm[Hg] N Body Height 62 [in_i] N Body Weight 145 [lb_av] N Body Mass Index 26.5 kg/m2 N 04/10/2024 Faces Pain Scale 0.0 N Blood Pressure Systolic 152 mm[Hg] N Blood Pressure Diastolic 63 mm[Hg] N Body Height 62 [in_i] N 06/18/2024 Inhaled Oxygen Concentration 21.0 % N Temperature 97 [degF] N Oxygen Saturation 97 % N Respiratory Rate 18 /min N Heart Rate 70 /min N Blood Pressure Systolic 168 mm[Hg] N Blood Pressure Diastolic 80 mm[Hg] N Body Height 62 [in_i] N Body Weight 143 [lb_av] N Body Mass Index 26.2 kg/m2 N 07/13/2023 Inhaled Oxygen Concentration 21.0 % N Temperature 97.9 [degF] N Oxygen Saturation 97 % N Respiratory Rate 16 /min N Heart Rate 71 /min N Blood Pressure Systolic 121 mm[Hg] N Blood Pressure Diastolic 77 mm[Hg] N Body Height 66 [in_i] N Social History No smoking Hx information available Functional Status Category Condition Date Problem (Feeding: Independent) Feeding: Independ ent 01/11/2023 Problem (Bathing: Independen t (or in shower)) Bathing: Independent (or in shower) 01/11/2023 Problem (Grooming: Independe nt face/hair/teeth/ shaving (implements provided)) Grooming: Independent face/hair/teeth/ shaving (implements provided) 01/11/2023 Problem (Dressing: Independe nt (including buttons, zips, laces, etc.)) Dressing: Independent (including buttons, zips, laces, etc.) 01/11/2023 Problem (Bowels: Continent) Bowels: Continent Problem (Bladder: Continent) Bladder: Continent 01/11/2023 Problem (Toilet use: Indepen dent (on and off, dressing, wiping)) Toilet use: Independent (on and off, dressing, wiping) 01/11/2023 Problem (Transfers (bed to c hair and back): Independent) Transfers (bed to chair and back): Independent 01/11/2023 Problem (Mobility (on level surfaces): Independent (but may use any aid; for example, stick) >50 yards) Mobility (on level surfaces): Independent (but may use any aid; for example, stick) >50 yards 01/11/2023 Problem (Stairs: Independent) Stairs: Independen t 01/11/2023 Problem (Total score: 100) Total score: 100 01/02 Problem (Feeding: Independent) Feeding: Independ ent 06/18/2024 Problem (Bathing: Independen t (or in shower)) Bathing: Independent (or in shower) 06/18/2024 Problem (Grooming: Independe nt face/hair/teeth/ shaving (implements provided)) Grooming: Independent face/hair/teeth/ shaving (implements provided) 06/18/2024 Problem (Dressing: Independe nt (including buttons, zips, laces, etc.)) Dressing: Independent (including buttons, zips, laces, etc.) 06/18/2024 Problem (Bowels: Continent) Bowels: Continent Problem (Bladder: Continent) Bladder: Continent 06/18/2024 Problem (Toilet use: Indepen dent (on and off, dressing, wiping)) Toilet use: Independent (on and off, dressing, wiping) 06/18/2024 Problem (Transfers (bed to c hair and back): Independent) Transfers (bed to chair and back): Independent 06/18/2024 Problem (Mobility (on level surfaces): Independent (but may use any aid; for example, stick) >50 yards) Mobility (on level surfaces): Independent (but may use any aid; for example, stick) >50 yards 06/18/2024 Problem (Stairs: Independent) Stairs: Independen t 06/18/2024 Problem (Total score: 100) Total score: 100 06/02
--- OUTSIDE RECORDS SUMMARY | 2024-08-02 14:46 | XMS_ITS | Patient Health Record ---
Author Organization [facility] Address [address] [place], [place] [id number] Care Team Providers Care Investment Recovery Technician Name Role Phone KYLEIGH SOTO Unavailable [phone] Cheryl Ramos Unavailable Unavailable HEENA WEBB Unavailable [phone] Allergies Allergen (clinical drug ingredient) Drug/Non Drug Allergy documented on EMR Reaction Allergy Type Onset Date Status Shellfish (FN) Shellfish (uncoded) Unknown Allergy 04/26 active Iodine Unknown Drug Allergy 04/26/2022 active Reason For Referral No Information Medications Medication SIG (Take, Route, Fr equency, Duration) Notes Start Date End Date Status traMADol HCl 50 MG 1 tablet as needed O rally Every 4-6 hours for 5 days 03/10/2023 Active Immunizations Vaccine Route Administration Date Status Comme nts Influenza, high dose seasonal Unknown 02/07/2023 Admini stered Influenza, high dose seasonal Unknown 01/02/2024 Admini stered Vital Signs Height-cm 170.18 cm 01/03/2024 Weight-kg 74.84 kg 01/03/2024 Height 67.00 in 01/03/2024 Weight 165 lbs 01/03/2024 BMI 25.84 kg/m2 01/03/2024 Encounters Encounter Location Date Provider Diagnosis [facility] [address] [place], [place] [id number] 06/06/2024 HEENA WEBB Onychomycosis B35.1 ; Pain in right toe(s) M79.674 ; Pain in left toe(s) M79.675 ; Intermittent claudication of both lower extremities due to atherosclerosis I70.213 ; Acquired keratoderma L85.1 and Difficulty in walking involving ankle and foot joint R26.2 [facility] [address] [id number] 08/23/2023 KYLEIGHLAURA SOTO Fungal infection of nail B35.1 ; Pain in right toe(s) M79.674 ; Pain in left toe(s) M79.675 and Atherosclerosis of [place] arteries of extremities with intermittent claudication, bilateral legs I70.213 [facility] [address] [id number] 01/03/2024 KYLEIGH [place]EN[place]ET[place]G Fungal infection of nail B35.1 ; Pain in right toe(s) M79.674 ; Pain in left toe(s) M79.675 and Atherosclerosis of [place] arteries of extremities with intermittent claudication, bilateral legs I70.213 [facility] [address] [id number] 03/12/2024 KYLEIGH [place] Fungal infection of nail B35.1 ; Pain in right toe(s) M79.674 ; Pain in left toe(s) M79.675 and Atherosclerosis of [place] arteries of extremities with intermittent claudication, bilateral legs I70.213 Assessments Encounter Date Diagnosis (ICD Code) Assessment Notes Treatment Notes Treatment Clinical Notes Section Notes 08/23/2023 Fungal infection of nail (ICD-10 - B35.1) Nails 1-5 Bilateral were debrided extensively with nail nippers and emery board, reducing length and girth to pink healthy tissue with any subungual debris and necrotic tissue removed 01/03/2024 Fungal infection of nail (ICD-10 - B35.1) Nails 1-5 Bilateral were debrided extensively with nail nippers and emery board, reducing length and girth to pink healthy tissue with any subungual debris and necrotic tissue removed 03/12/2024 Fungal infection of nail (ICD-10 - B35.1) Nails 1-5 Bilateral were debrided extensively with nail nippers and emery board, reducing length and girth to pink healthy tissue with any subungual debris and necrotic tissue removed 06/06/2024 Pain in right toe(s) (ICD-10 - M79.674) 06/06/2024 Onychomycosis (ICD-10 - B35.1) 1. Nails 1-5 Bilateral were debrided extensively with nail nippers and emery board, reducing length and girth to pink healthy tissue with any subungual debris and necrotic tissue removed 2. Patient was instructed on the importance of daily visual inspection of both feet. Patient should report to the office if they see any unusual redness, swelling, open sores, ulcerations or signs of infection. Patient should wear protective shoes around the house 3. Advised patient on appropriate shoe gear for protection, healing and overall foot health 06/06/2024 Pain in left toe(s) (ICD-10 - M79.675) 03/12/2024 Pain in right toe(s) (ICD-10 - M79.674) 01/03/2024 Pain in right toe(s) (ICD-10 - M79.674) 08/23/2023 Pain in right toe(s) (ICD-10 - M79.674) 08/23/2023 Pain in left toe(s) (ICD-10 - M79.675) 01/03/2024 Pain in left toe(s) (ICD-10 - M79.675) 03/12/2024 Pain in left toe(s) (ICD-10 - M79.675) 06/06/2024 Intermittent claudication of both lower extremities due to atherosclerosis (ICD-10 - I70.213) 06/06/2024 Acquired keratoderma (ICD-10 - L85.1) 03/12/2024 Atherosclerosis of [place] arteries of extremities with intermittent claudication, bilateral legs (ICD-10 - I70.213) 01/03/2024 Atherosclerosis of [place] arteries of extremities with intermittent claudication, bilateral legs (ICD-10 - I70.213) 08/23/2023 Atherosclerosis of [place] arteries of extremities with intermittent claudication, bilateral legs (ICD-10 - I70.213) 06/06/2024 Difficulty in walking involving ankle and foot joint (ICD-10 - R26.2) 06/06/2024 Other Emollient: Recommend that the patient use an emollient such as [id number] r Eucerin cream, Vanicream, or other lotion to the affected area. Plan Of Treatment Next Appt Details Provider Name:KLYEIGH LOMELI, 09/10/2024 02:20:00 PM, [address], [place], [place], [id number], Insurance Providers Payer Name Payer Address Payer Phone Subscriber Number Group Number Insured Name Patient Relationship to Insured Coverage Start Date Coverage End Date AARP MedicareComp letbill ([facility]) [address] [place], [place] [id number] COURTNEY GRIGGS Self - patient is the insured Medical (General) History Medical History History ICD Code hypertension breast cancer Surgical History Surgery Date(Month/Year) tonsillectomy Tubal Ligation Hysterectomy
--- OUTSIDE RECORDS SUMMARY | 2024-08-02 14:46 | XMS_ITS | Data Portability ---
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 bonita Not available 06/14/2024 18:06:26 Plan of Treatment Reminders Order Date Submit Date Provider Last Modified By Organization Details Last Modified Time Details Appointments ANY 15 2024 02:00P M Cheryl Simon MD Not available Not available Not available Lab None recorded. Referral general surgeon referral 2024 025 TAMAR Bright MD, [address], [address], [address], 07/25/2024 16:48:09 general surgeon referral 2024 025 luz Aguilar MD, [address] [facility], [address], [address], 06/14/2024 16:45:41 Procedures None recorded. Surgeries None recorded. Imaging XR, chest, 2 view - Atypical left sided chest pain [address] [facility] Scheduling, [address] [facility], [place], [address], 07/12/2024 14:31:08 MAMMO, diagnosti c, unilatera l - Reported mass at 6 o'clock 2024 025 jennifer Powell [facility] Scheduling, [address], [place], [address], 07/19/2024 16:37:05 US, breast, unilatera l - Reported mass at 6 o'clock 2024 025 [facility] Scheduling, [address], [place], [address], 07/10/2024 08:40:13 CT, chest, w/o contrast - Mass, inferior and lateral aspect of the sternum (L) 2023 024 [facility] ([facility] Scheduling), [address] [place], [address], 10/18/2023 17:18:25 US, neck, soft tissue - Soft mass, right side of the neck 2023 024 [facility] ([facility] Scheduling), [address] [place], [address], 08/24/2023 16:28:53 Medication Orders None recorded. Patient TargetsNo targets recorded. Patient Instructions Encounter Date Encounter Id Patient Instructions Last Modified By Organization Details Last Modified Time 08/16/2023 [id number] anemia: care instructions oajao Not available 08/16/2023 16:12:37 Lab results from [facility] Follow up with the general surgeon Follow up in 4 weeks with all your medications US oajao Not available 08/16/2023 16:18:18 10/07/[id number] Follow up in 2 weeks oajao Not available 10/07/2023 15:31:36 11/23/2023 [id number] Operative summar y Note from her most recent OV with Dr Aguilar Follow up with Dr Aguilar Follow up in 6 months and PRN oajao Not available 11/23/2023 15:42:14 05/25/2024 [id number] learning about high blood pressure oajao Not available 05/25/2024 15:31:16 MMG (Scheduled) General surgeon to see Follow up in 6 weeks oajao Not available 05/25/2024 15:14:30 06/14/2024 [id number] learning about high blood pressure oajao Not available 06/14/2024 16:37:40 CXR MMG/US Sonia goncalves surgeon Cardiology follow up Follow up in 6 weeks [email or web address] Not available 06/14/2024 16:46:20 Detailed visit oajao Not available 0 06/14/2024 18:06:37 Reason for Referral General Surgeon Referral for Nodule of subcutaneous tissue of chest wall Mass of the anterior chest wall (Chronic) Referring Physician: Cheryl Simon, Internal Medicine, Encounter Date: 05/25/2024 General Surgeon Referral for Nodule of subcutaneous tissue of chest wall Reported mass at 6 o'clock (R. breast), Chest wall nodule. Referring Physician: Cheryl Simon, Internal Medicine, Encounter Date: 06/14/2024 Results Created Date Observation Date Name Description Value Unit Range Abnormal Flag Note LastModifiedBy Organization Detail LastModifiedTime 10/24/19 24 10/24/2023 ABO and Rh group [Type ] in Blood patient ABO group and Rh O POSITI VE patie nt ABO group and Rh Not Available Not Available 05/21/2024 13:55:36 10/24/19 24 10/24/2023 Potas sium [Mole s/vol ume] in Serum or Plasm a potassium potas sium Not Available Not Available 05/21/2024 13:55:36 10/24/19 24 10/24/2023 CBC W Auto Diffe renti al panel - Blood white blood cells white blood cells Not Available Not Available 05/21/2024 13:55:36 10/24/19 24 10/24/2023 CBC W Auto Diffe renti al panel - Blood red blood cells red blood cells Not Available Not Available 05/21/2024 13:55:36 10/24/19 24 10/24/2023 CBC W Auto Diffe renti al panel - Blood hemoglobin low hemog lobin Not Available Not Available 05/21/2024 13:55:36 10/24/19 24 10/24/2023 CBC W Auto Diffe renti al panel - Blood hematocrit hemat ocrit Not Available Not Available 05/21/2024 13:55:36 10/24/19 24 10/24/2023 CBC W Auto Diffe renti al panel - Blood mean red cell volume low mean red cell volum e Not Available Not Available 05/21/2024 13:55:36 10/24/19 24 10/24/2023 CBC W Auto Diffe renti al panel - Blood mean red cell hemoglobin low mean red cell hemog lobin Not Available Not Available 05/21/2024 13:55:36 10/24/19 24 10/24/2023 CBC W Auto Diffe renti al panel - Blood mean RBC HGB concentratio n mean RBC HGB ronaldo ntrat ion Not Available Not Available 05/21/2024 13:55:36 10/24/19 24 10/24/2023 CBC W Auto Diffe renti al panel - Blood red cell distribution width high red cell distr ibuti on width Not Available Not Available 05/21/2024 13:55:36 10/24/19 24 10/24/2023 CBC W Auto Diffe renti al panel - Blood platelets plate lets Not Available Not Available 05/21/2024 13:55:36 10/24/19 24 10/24/2023 CBC W Auto Diffe renti al panel - Blood mean platelet volume mean plate let volum e Not Available Not Available 05/21/2024 13:55:36 10/24/19 24 10/24/2023 CBC W Auto Diffe renti al panel - Blood neutrophils neutr ophil s Not Available Not Available 05/21/2024 13:55:36 10/24/19 24 10/24/2023 CBC W Auto Diffe renti al panel - Blood lymphocytes lymph ocyte s Not Available Not Available 05/21/2024 13:55:36 10/24/19 24 10/24/2023 CBC W Auto Diffe renti al panel - Blood monocytes monoc ytes Not Available Not Available 05/21/2024 13:55:36 10/24/19 24 10/24/2023 CBC W Auto Diffe renti al panel - Blood eosinophils eosin ophil s Not Available Not Available 05/21/2024 13:55:36 10/24/19 24 10/24/2023 CBC W Auto Diffe renti al panel - Blood basophils basop hils Not Available Not Available 05/21/2024 13:55:36 10/24/19 24 10/24/2023 CBC W Auto Diffe renti al panel - Blood immature granulocytes immat ure granu locyt es Not Available Not Available 05/21/2024 13:55:36 10/24/19 24 10/24/2023 CBC W Auto Diffe renti al panel - Blood neutrophils, absolute count neutr ophil s, absol shinnecock count Not Available Not Available 05/21/2024 13:55:36 10/24/19 24 10/24/2023 CBC W Auto Diffe renti al panel - Blood lymphocytes, absolute count lymph ocyte s, absol shinnecock count Not Available Not Available 05/21/2024 13:55:36 10/24/19 24 10/24/2023 CBC W Auto Diffe renti al panel - Blood monocytes, absolute count monoc ytes, absol shinnecock count Not Available Not Available 05/21/2024 13:55:36 10/24/19 24 10/24/2023 CBC W Auto Diffe renti al panel - Blood eosinophils, absolute count eosin ophil s, absol shinnecock count Not Available Not Available 05/21/2024 13:55:36 10/24/19 24 10/24/2023 CBC W Auto Diffe renti al panel - Blood basophils, absolute count basop hils, absol shinnecock count Not Available Not Available 05/21/2024 13:55:36 10/24/19 24 10/24/2023 CBC W Auto Diffe renti al panel - Blood immature granulocytes ,absolute immat ure granu locyt es,ab solut e Not Available Not Available 05/21/2024 13:55:36 10/24/19 24 10/24/2023 CBC W Auto Diffe renti al panel - Blood nucleated red blood cells nucle ated red blood cells Not Available Not Available 05/21/2024 13:55:36 10/24/19 24 10/24/2023 CBC W Auto Diffe renti al panel - Blood NRBC# NRBC# Not Available Not Availa ble 05/21/2024 13:55:36 08/24/19 24 08/24/2023 US, neck, soft tissu e No observ ation record ed. [facility] [address] [place], [address], 10/07/2023 15:02:50 10/18/19 24 10/18/2023 CT, chest , w/o contr ast No observ ation record ed. [facility] [address] [place], [address], 11/23/2023 15:37:44 11/03/19 24 11/03/2023 US, neck, soft tissu e No observ ation record ed. [facility] [address] [place], [address], 11/23/2023 15:37:44 03/09/20 24 03/09/2024 trans -thor acic echoc ardio gram (TTE) (PROC ) No observ ation record ed. [facility] [address], [place], [address], 05/25/2024 14:47:10 05/30/19 25 05/30/2024 bone densi ty No observ ation record ed. [facility] [address], [place], [address], 06/14/2024 16:08:22 07/10/19 25 07/09/2024 , xander cantrell teral No observ ation record ed. [facility] Scheduling [address] [facility], [place], [address], 07/11/2024 12:49:57 07/10/19 25 07/09/2024 , sonia goncalves unila teral No observ ation record ed. [facility] Scheduling [address] [facility], [place], [address], 07/10/2024 08:40:13 07/25/19 25 07/24/2024 US, chest wall No observ ation record ed. [place] [address] [facility] [address], [place], [address], 07/31/2024 13:37:21 Result Notes None recorded. Problems Name Problem SNOMED Code Status Onset Date Resolution Date Notes Provider Name and Address Organization Details Recorded Time History of left mastectomy 583207647 Active 2018 Not Available [facility] 4 03:57:56 History of hysterecto my 974213143 Active 2018 Not Available [facility] 4 03:57:56 Left inguinal hernia 631929133 Active 2018 Not Available [facility] 4 03:57:56 Hiatal hernia 91025959 Active 2018 Not Available [facility] 4 03:57:56 Diastolic dysfunctio n 4641873 Active 2018 Not Available [facility] 4 03:57:56 Left ventricula r hypertroph y 27925054 Active 2018 Not Available [facility] 4 03:57:56 Cyst of kidney 515175751 Active 2019 Not Available [facility] 4 03:57:56 Liver cyst 13777857 Active 2019 Not Available [facility] 4 03:57:56 History of malignant neoplasm of breast 605668226 Active 2019 Not Available [facility] 4 03:57:56 Atrial septal aneurysm 17386934 Active 2020 Not Available [facility] 4 03:57:56 Pulmonary hypertensi on 63008530 Active 2020 Not Available [facility] 4 03:57:56 Simple renal cyst 73801279 Active 2021 Not Available [facility] 4 03:57:56 Mitral valve regurgitat ion 33130784 Active 2021 Not Available [facility] 4 03:57:56 History of total knee arthroplas ty 350140743703 5 Active 2021 Not Available [facility] 4 03:57:56 Impaired mobility 56099605 Active 2021 Not Available [facility] 4 03:57:56 Renal insufficie ncy 707297456 Active 2021 Not Available [facility] 4 03:57:56 Echocardio gram abnormal 813418469 Active 2022 Echo 03/2024 mild MR, severe LVH, EF 65% Ciara webb MD Attn: [place], [address] , [facility] 4 20:49:50 Chronic kidney disease 877059290 Active 2022 Not Available [facility] 4 03:57:56 Hernia of anterior abdominal wall 495788653 Active 2022 Not Available [facility] 4 03:57:56 Prediabete s 423022371 Active 2022 Not Available [facility] 4 03:57:56 Postmastec aurea lymphedema syndrome 16775531 Active 2022 Not Available [facility] 4 03:57:56 Bunion 957095163 Active Not Available [facility] 4 03:57:56 Hallux valgus AND bunion 748562268 Active Not Available [facility] 4 03:57:56 Essential hypertensi on 35892603 Active Not Available [facility] 4 03:57:56 Hyperlipid emia 29959904 Active Not Available [facility] 4 03:57:56 Disorder of coronary artery 702728667 Active Not Available [facility] 4 03:57:56 Degenerati ve disorder 742732502 Active Not Available [facility] 4 03:57:56 Rheumatoid arthritis 84292610 Active Not Available [facility] 4 03:57:56 Lymphedema 962732867 Active Not Available [facility] 4 03:57:56 Problem Notes None recorded. Procedures Surgical History Date Name Laterality Status Provider Name and Address Organization Details Recorded Time 2024 colonoscopy completed Cheryl Simon MD Attn: Riaz gardner,[address] [facility], [place], [address], [place] - [facility] 5 08:57:09 2023 esophagogastroduodenoscopy completed Odilia Merida MD Attn: Riza gardner,[address] [facility], [place], [address], [place] [facility] 4 09:07:34 2022 amputation of toe completed Cheryl Simon MD Attn: Riaz gardner,[address] [facility], [place], [address], [place] [facility] 3 14:14:44 2021 endoscopy completed Cheryl Simon MD Attn: Riaz gardner,[address] [facility], [place], [address], [place] - [facility] 2 22:52:22 2021 Colonoscopy completed Cheryl Simon MD Attn: Riaz gardner,[address] [facility], [place], [address], [place] - [facility] 2 22:52:34 2018 Total hysterectomy completed Cheryl Simon MD Attn: Riaz gardner,[address] [facility], [place], [address], [place] [facility] 9 14:41:26 2014 Orthopedic Surgery completed Ruba Jacobson [place] - [facility] 6 12:32:08 2004 simple mastectomy completed Cheryl Simon MD Attn: Riaz gardner,[address] [facility], [place], [address], [place] - [facility] 9 14:42:29 total knee replacement completed Manish Simon MD Attn: Riaz gardner,[address] [facility] [address], [place], [address], [place] - [facility] 14:43:04 Imaging Results Imaging Date Name Status LastModified by Organization Details LastModified Time 08/24/2023 US, neck, soft tissue completed [facility] [address] [place], [address], 10/07/2023 15:02:50 10/18/2023 CT, chest, w/o contrast completed [facility] [address] [place], [address], 11/23/2023 15:37:44 11/03/2023 US, neck, soft tissue completed [facility] [address] [place], [address], 11/23/2023 15:37:44 03/09/2024 trans-thoracic echocardiogram (TTE) (PROC) completed [facility] [address] [facility] [address], [address], 05/25/2024 14:47:10 05/30/2024 bone density completed [facility] [address] [place], [address], 06/14/2024 16:08:22 07/09/2024 US, breast, unilateral completed [facility] Scheduling [address] [facility], [place], [address], 07/11/2024 12:49:57 07/09/2024 US, breast, unilateral completed [facility] [place], [address], 07/10/2024 08:40:13 07/24/2024 US, chest wall completed [address], [place], [address], 07/31/2024 13:37:21 Procedure Notes None recorded. Medical Equipment None Reported. Allergies Allergen ID Allergen Name Allergen Category Reaction Reaction Severity Criticality Documentation Date Start Date Code Code System Note Provider Name and Address Organization Details Recorded Time [id number] losartan medicatio n swelling Not available Not available 03/26/20192022 39681 RxNorm Cheryl Simon MD Attn: Riaz gardner,[address] [facility], [place], [address], [facility] 5 14:44:32 Medications Name Sig Start Date Stop Date Status Note LastModified by Organization Details LastModified Time Prescript ion - Prior Authoriza tion Request 11/23 completed [facility] prior authoriz ation Not Available Not Available Not Available furosemid e 40 mg tablet TAKE 1 TABLET BY MOUTH ONCE DAILY active Not Available Not Available No t Available carvedilo l 12.5 mg tablet TAKE 1 TABLET BY MOUTH TWICE DAILY active Not Available Not Available No t Available irbesarta n 150 mg-hydroc hlorothia zide 12.5 mg tablet TAKE ONE (1) TABLET BY MOUTH TWICE DAILY; *PATIENT NEEDS APPOINTM ENT* 08/04 completed Not Available Not Available Not Available cetirizin e 10 mg tablet Take 1 tablet every day by oral route as needed. 11/18 completed Not Available Not Available Not Available lisinopri l 20 mg-hydroc hlorothia zide 12.5 mg tablet Take 1 tablet every day by oral route. 10/24 completed Not Available Not Available Not Available hydrocodo ne 5 mg-acetam inophen 325 mg tablet 11/23 completed Not Available Not Available Not Available diltiazem CD 240 mg capsule,e xtended release 24 hr TAKE 1 CAPSULE BY MOUTH ONCE DAILY 05/25 completed Not Available Not Available Not Available hydralazi ne 25 mg tablet TAKE 1 TABLET BY MOUTH TWICE DAILY active Not Available Not Available No t Available Aspir-Low 81 mg tablet,de layed release Take 1 tablet every day by oral route. 11/18 completed Not Available Not Available Not Available allopurin ol 100 mg tablet TAKE 1 TABLET BY MOUTH DAILY active Not Available Not Available No t Available ciproflox acin 500 mg tablet 11/23 completed Not Available Not Available Not Available tramadol 50 mg tablet TAKE 1 TABLET BY MOUTH EVERY 4-6 HOURS X 5 DAYS 08/15 completed Not Available Not Available Not Available simvastat in 40 mg tablet TAKE 1 TABLET BY MOUTH EVERY DAY DIRECTED active Not Available Not Available No t Available carvedilo l 3.125 mg tablet TAKE 1 TABLET BY MOUTH TWICE DAILY 01/07 completed Not Available Not Available Not Available pantopraz ole 20 mg tablet,de layed release TAKE 1 TABLET BY MOUTH EVERY MORNING 05/25 completed Not Available Not Available Not Available oxycodone -acetamin ophen 5 mg-325 mg tablet TAKE 1 TABLET BY MOUTH EVERY 4 HOURS NEEDED FOR PAIN 11/22 completed Not Available Not Available Not Available potassium chloride ER 20 mEq tablet,ex tended release(p art/cryst ) TAKE 1 TABLET BY MOUTH ONCE DAILY active Not Available Not Available No t Available famotidin e 20 mg tablet TAKE 1 TABLET BY MOUTH TWICE DAILY 05/25 completed Not Available Not Available Not Available prednisol one acetate 1 % eye drops,maría pension 11/23 completed Not Available Not Available Not Available nifedipin e ER 90 mg tablet,ex tended release 24 hr TAKE 1 TABLET BY MOUTH DAILY active Not Available Not Available No t Available tobramyci n 0.3 % eye drops 11/23 completed Not Available Not Available Not Available nystatin 100,000 unit/gram topical cream 06/28 completed Not Available Not Available Not Available losartan 25 mg tablet TAKE 1 TABLET BY MOUTH EVERY DAY 04/06 completed Not Available Not Available Not Available omeprazol e 20 mg capsule,d elayed release TAKE 1 CAPSULE BY MOUTH EVERY DAY 10/06 completed Not Available Not Available Not Available Banophen 25 mg capsule TAKE 1 CAPSULE BY MOUTH EVERY 6 TO 8 HOURS FOR 5 DAYS NEEDED 01/28 completed Not Available Not Available Not Available hydralazi ne 50 mg tablet TAKE 1 TABLET BY MOUTH TWICE DAILY active Not Available Not Available No t Available mupirocin 2 % topical ointment 06/28 completed Not Available Not Available Not Available ergocalci ferol (vitamin D2) 1,250 mcg (50,000 unit) capsule TAKE 1 CAPSULE BY MOUTH ONCE A WEEK active Not Available Not Available No t Available nystatin 100,000 unit/gram topical powder 12/28 completed Not Available Not Available Not Available ibuprofen 600 mg tablet 11/18 completed Not Available Not Available Not Available methylpre dnisolone 4 mg tablets in a dose pack FOLLOW PACKAGE DIRECTIO NS 05/10 completed Not Available Not Available Not Available ondansetr on 4 mg disintegr ating tablet 12/02 completed Not Available Not Available Not Available dicyclomi ne 10 mg capsule 11/18 completed Not Available Not Available Not Available calcitrio l 0.25 mcg capsule TAKE 1 CAPSULE BY MOUTH ONCE DAILY active Not Available Not Available No t Available loratadin e 10 mg tablet Take 1 tablet every day by oral route as directed for 90 days. 08/19 completed Not Available Not Available Not Available amoxicill in 875 mg-potass ium clavulana te 125 mg tablet 06/28 completed Not Available Not Available Not Available nitrofura ntoin monohydra te/macroc rystals 100 mg capsule 11/23 completed Not Available Not Available Not Available losartan 100 mg-hydroc hlorothia zide 12.5 mg tablet Take 1 tablet every day by oral route. 11/18 completed Not Available Not Available Not Available loratadin e 03/26 completed Not Available Not Available Not Available aspirin active Not Available Not Avail able Not Available Stool Softener 07/08 completed Not Available Not Available Not Available Zostavax (PF) 19,400 unit/0.65 mL subcutane ous suspensio n 11/23 completed Not Available Not Available Not Available ferrous sulfate 324 mg (65 mg iron) tablet,de layed release TAKE 1 TABLET BY MOUTH EVERY DAY active Not Available Not Available No t Available Stephanie Allergy active Not Available Not Available Not Available Multi Vitamin 07/08 completed Not Available Not Available Not Available potassium chloride ER 20 mEq tablet,ex tended release TAKE 1 TABLET BY MOUTH DAILY *TO BE TAKEN WITH FUROSEMI DE* active Not Available Not Available No t Available Fluad 65yr up(PF)45 mcg(15 mcgx3)/0. 5 mL intramusc ular syringe 11/23 completed Not Available Not Available Not Available Fluad Quad (65yr up)(PF) 60 mcg (15 mcg x 4)/0.5mL IM syringe ADM 0.5ML IM UTD 02/13 completed Not Available Not Available Not Available Vitals Date Recorded Body height Body mass index (BMI) Body weight Oxygen saturation Oxygen saturation in Arterial blood by Pulse oximetry Heart rate Respiratory rate Systolic blood pressure Diastolic blood pressure Provider Name and Address Organization Details Last Updated DateTime 4 167.64 cm 23.3 kg/m2 07316.3 8 g 98 % 98 % 72 /min 18 /min 140 mm[Hg] 70 mm[Hg] Ciara Cota MA [facility] 4 15:58:17 Date Recorded Body height Body mass index (BMI) Body weight Heart rate Oxygen saturation Oxygen saturation in Arterial blood by Pulse oximetry Respiratory rate Systolic blood pressure Diastolic blood pressure Provider Name and Address Organization Details Last Updated DateTime 4 167.64 cm 22.7 kg/m2 31196.4 5 g 62 /min 97 % 97 % 16 /min 160 mm[Hg] 80 mm[Hg] Ciara Cota MA [facility] 4 14:58:10 Date Recorded Body height Body mass index (BMI) Body weight Heart rate Oxygen saturation Oxygen saturation in Arterial blood by Pulse oximetry Respiratory rate Systolic blood pressure Diastolic blood pressure Provider Name and Address Organization Details Last Updated DateTime 4 167.64 cm 22.9 kg/m2 03438.7 6 g 64 /min 98 % 98 % 18 /min 130 mm[Hg] 74 mm[Hg] Ciara Cota MA [facility] 4 15:12:13 Date Recorded Body height Body mass index (BMI) Body weight Body temperature Heart rate Oxygen saturation Oxygen saturation in Arterial blood by Pulse oximetry Systolic blood pressure Diastolic blood pressure Provider Name and Address Organization Details Last Updated DateTime 5 167.64 cm 23.5 kg/m2 67008.9 7 g 98.6 [degF] 73 /min 98 % 98 % 128 mm[Hg] 72 mm[Hg] Sheba Benites [facility] 5 14:38:06 Date Recorded Body height Body mass index (BMI) Body weight Oxygen saturation Oxygen saturation in Arterial blood by Pulse oximetry Heart rate Body temperature Systolic blood pressure Diastolic blood pressure Provider Name and Address Organization Details Last Updated DateTime 5 167.64 cm 23 kg/m2 02450.6 3 g 98 % 98 % 70 /min 97.8 [degF] 124 mm[Hg] 60 mm[Hg] Ciara Cota MA [facility] 5 16:04:58 Social History Question Answer Notes LastModified by Organizat ion Details LastModified Time Tobacco Smoking Status Never Smoker Estefany Gastelum mike, [facility] 03/19/2014 10:00:14 Do You Have An Advance Directive? No Information not available 01/28/2022 What Is Your Level Of Alcohol Consumption? None Information not available 11/23/2018 In The 14 Days Before Symptom Onset, Have You Had Close Contact With A Laboratory-confir med COVID-19 While That Case Was Ill? No Information not available 01/28/2022 In The 14 Days Before Symptom Onset, Have You Had Close Contact With A Person Who Is Under Investigation For COVID-19 While That Person Was Ill? No Information not available 01/28/2022 Have You Been To An Area Known To Be High Risk For COVID-19? No Information not available 01/28/2022 What Type Of Diet Are You Following? REGULAR Information not available 11/23/2018 Do You Or Have You Ever Used E-cigarettes Or Vape? Never Used Electronic Cigarettes Information not available 11/23/2018 Are There Any Guns Present In Your Home? No Information not available 11/23/2018 Hard Of Hearing Or Deaf In One Or Both Ears? No Information not available 11/23/2018 Legally Blind In One Or Both Eyes? No Information no t available 11/23/2018 Do You Have A Medical Power Of Vacuum Extractor Operator? No Information not available 01/28/2022 What Was The Date Of Your Most Recent Tobacco Screening? 06/14/2024 Information not available 06/14/2024 Seat Belts Used Routinely Yes Information not available 11/23/2018 Smoke Alarm In Home Yes Information not available 11/23/2018 Do You Or Have You Ever Used Smokeless Tobacco? Never Used Smokeless Tobacco Information not available 11/23/2018 How Much Tobacco Do You Smoke? No Information not available 11/23/2018 On What Date Was Tobacco Cessation Counseling Provided? 03/26/2019 Information not available 03/26/2019 How Many Years Have You Smoked Tobacco? 0 Information not available 11/23/2018 Sex: Unknown Functional Status None recorded. Mental Status None recorded. Family History Relationship Description Onset Age of this Age Resolved Age Notes LastModified by Organization Details LastModified Time Mother Heart disease [email or web address] Not available 2020 15:23:33 Medical History Condition Response Heart Problems N Coronary Artery Disease N Anxiety/Depression N Gout N High Blood Pressure Y Blood Transfusion N Hernia N Migraines N Thyroid Problems N COPD N Pacemaker N Anemia N Ulcers N Heart Attack ([place]) N Diabetes N Bleeding Disorder N Orthotics N Seizures/Epilepsy N Blood Clot N Tuberculosis N AIDS/HIV N Cancer N Stroke N Asthma N Peripheral Vascular Disease N High Cholesterol Y Hepatitis N Liver Disease N Rheumatoid Arthritis N Pulmonary Embolism N Hypertension Y Osteoporosis N Kidney Disease N Gynecological HistoryNo gynecological history recorded. Obstetrics History GPAL:G 0 P 0 0 0 0 Immunizations Vaccine Type Date Status Note Provider Nam e and Address Organization Details Recorded Time Influenza, split virus, quadrivalent, preservative 0 completed Cheryl Simon MD Attn: Accounting,[address] [place], [address], [facility] 05/18/2023 15:14:08 Influenza, split virus, quadrivalent, preservative 1 completed Not Available [facility] 04/16/2023 03:57:56 Influenza, adjuvanted, quadrivalent, PF 0 completed Not Available [facility] 04/16/2023 03:57:56 pneumococcal polysaccharide PPV23 1 completed Not Available [facility] 04/16/2023 03:57:57 Pneumococcal conjugate PCV 13 6 completed Not Available [facility] 04/16/2023 03:57:57 COVID-19, mRNA, LNP-S, PF, 100 mcg/0.5mL dose or 50 mcg/0.25mL dose 1 completed Not Available [facility] 04/16/2023 03:57:57 COVID-19, mRNA, LNP-S, PF, 100 mcg/0.5mL dose or 50 mcg/0.25mL dose 1 completed Not Available [facility] 04/16/2023 03:57:56 zoster live 5 completed Not Available [facility] 04/16/2023 03:57:57 COVID-19, mRNA, LNP-S, PF, 100 mcg/0.5mL dose or 50 mcg/0.25mL dose 1 completed Not Available [facility] 04/16/2023 03:57:56 Influenza, adjuvanted, trivalent, PF 8 completed Not Available [facility] 04/16/2023 03:57:56 COVID-19, mRNA, LNP-S, PF, 100 mcg/0.5mL dose or 50 mcg/0.25mL dose 2 completed Not Available [facility] 04/16/2023 03:57:57 Pneumococcal conjugate PCV 13 9 completed Not Available [facility] 04/16/2023 03:57:57 zoster recombinant 3 completed Not Available [facility] 04/16/2023 03:57:56 Influenza, adjuvanted, quadrivalent, PF 3 completed Not Available [facility] 04/16/2023 03:57:56 zoster recombinant 3 completed Not Available [facility] 04/16/2023 03:57:56 pneumococcal conjugate PCV 7 9 completed Not Available [facility] 04/16/2023 03:57:57 RSV, recombinant, protein subunit RSVpreF, adjuvant reconstituted, 0.5 mL, PF 3 completed Not Available [facility] 04/16/2023 03:57:57 COVID-19, mRNA, LNP-S, PF, seema-sucrose, 30 mcg/0.3 mL 3 completed Not Available [facility] 04/16/2023 03:57:57 influenza, unspecified formulation 9 completed Not Available [facility] 04/16/2023 03:57:57 influenza, unspecified formulation 8 completed Not Available [facility] 04/16/2023 03:57:57 COVID-19, mRNA, LNP-S, PF, 50 mcg/0.5 mL 4 completed Cheryl Simon MD Attn: Accounting,[address] [facility], [place], [place], [address] [place] [address], [place] [facility] 05/18/2023 15:14:09 Pneumococcal conjugate PCV21, polysaccharide [id number] conjugate, PF 4 completed Cheryl Simon MD Attn: Accounting,[address] [facility], [place], [place], [address] [place] [address], [place] [facility] 05/25/2024 14:45:08 Influenza, adjuvanted, trivalent, PF 4 completed Cheryl Simon MD Attn: Accounting,[address] [place], [address] [place] [address], [place] [facility] 05/25/2024 14:45:08 COVID-19, mRNA, LNP-S, PF, 100 mcg/0.5mL dose or 50 mcg/0.25mL dose 4 completed Cheryl Simon MD Attn: Accounting,[address] [place], [address] [place] [address], [place] [facility] 05/25/2024 14:45:08 COVID-19, mRNA, LNP-S, PF, 50 mcg/0.5 mL 4 completed Cheryl Simon MD Attn: Accounting,[address] [place], [address] [place] [address], [place] [facility] 05/25/2024 14:45:08 Pneumococcal conjugate PCV21, polysaccharide [id number] conjugate, PF 4 completed Cheryl Simon MD Attn: Accounting,[address] [place], [address] [place] [address], [place] [facility] 05/25/2024 14:45:08 Influenza, split virus, quadrivalent, preservative 9 completed Not Available [facility] 04/21/2019 02:38:09 Tdap 9 completed Not Available [facility] 04/21/2019 02:38:45 pneumococcal polysaccharide PPV23 0 completed Ciara Cota [place] null, [place] [facility] 02/15/2020 12:26:47 Influenza, split virus, quadrivalent, preservative 2 completed Cherly Simon MD Attn: Accounting,[address] [place], [address], [facility] 01/07/2022 18:18:24 COVID-19, mRNA, LNP-S, bivalent, PF, 30 mcg/0.3 mL dose 3 completed Joanne Castro [place], [place] [facility] 08/18/2022 15:13:42 Past Encounters Encounter ID Performer Location Encounter Start Date Encounter Closed Date Diagnosis/Indication Diagnosis SNOMED-CT Code Diagnosis ICD10 Code Diagnosis Note [id number] George Alexander MD [facility] [address] [place] [address] 03/19/2014 09:52:02 03/19/2014 12:01:37 Bunion [id number] Hallux carol haylie AND bunion [id number] Hamzah Teixeira MD [facility] (Adult/Fa m Med) [address] [place] [address] 03/20/2014 15:49:05 04/28/2014 03:51:15 Essential hypertension 45663795 Hyperlipidemia 26293228 Disorder o f coronary artery 998296588 Degenerative disorder 954230381 Rheumatoid arthritis 35358701 Lymphedema 793891772 [id number] George Alexander MD [facility] [address] [place] [address] 05/07/2014 10:15:41 05/07/2014 15:39:36 Bunion [id number] Hallux carol haylie AND bunion [id number] George Alexander MD [facility] [address] [place] [address] 05/28/2014 10:14:00 05/28/2014 13:03:12 Bunion [id number] Hallux carol haylie AND bunion [id number] Hamzah Teixeira MD [facility] (Adult/Fa m Med) [address] [place] [address] 07/17/2014 14:48:48 07/17/2014 17:49:05 Essential hypertension 05993112 Hyperlipidemia 94573819 Disorder o f coronary artery 270736868 Degenerative disorder 779020246 Rheumatoid arthritis 92522878 Lymphedema 170349213 [id number] George Alexander MD [facility] [address] [place] [address] 08/09/2014 10:06:38 08/09/2014 12:55:38 Bunion [id number] Hallux carol haylie AND bunion [id number] Hamzah Teixeira MD [facility] (Adult/Fa m Med) [address] [place] [address] 10/21/2014 14:39:34 10/21/2014 18:01:53 Essential hypertension 57394587 Hyperlipidemia 64958292 Disorder o f coronary artery 967736339 Degenerative disorder 882192721 Rheumatoid arthritis 37550179 Lymphedema 711330138 [id number] Hamzah Teixeira MD [facility] (Adult/Fa m Med) [address] [place] [address] 12/05/2014 14:15:39 12/05/2014 17:27:31 Essential hypertension 76980397 Hyperlipidemia 44938518 Disorder o f coronary artery 159075791 Degenerative disorder 095655616 Rheumatoid arthritis 59422317 Lymphedema 886126598 [id number] Hamzah Teixeira MD [facility] (Adult/Fa m Med) [address] [place] [address] 06/28/2017 14:41:09 07/06/2017 12:54:09 Degenerative disorder 646241500 R69 Essential hypertension 33821676 I10 Osteoarthr itis of knee 481470208 M17.9 R>L Hyperlipidemia 31855691 E78.5 History of mastectomy 42 3523423 Z90.12 [id number] Hamzah Teixeira MD [facility] (Adult/Fa m Med) [address] [place] [address] 09/28/2017 14:44:12 09/28/2017 16:49:21 Essential hypertension 48348586 I10 Hyperlipidemia 46149214 E78.5 Disorder o f coronary artery 339506984 I77.9 Rheumatoid arthritis 698 15082 M06.9 Lymphedema 938654802 I89 .0 Screening for disorder 256403444 Z13.9 Degenerative disorder 36 6579034 R69 Obesity 583377609 E66.9 [id number] Shantell Cruz [facility] (Adult/Fa m Med) [address] [place], [place] [address] 10/26/2017 12:20:35 02/01/2018 15:15:52 Allergic reaction 874925420 T78.40XA [id number] Hamzah Teixeira MD [facility] (Adult/Fa m Med) [address] [place], [place] [address] 11/30/2017 11:27:46 11/30/2017 12:39:53 Screening for disorder 841311866 Z13.9 Essential hypertension 35744373 I10 Hyperlipidemia 86438363 E78.5 Seasonal a llergic rhinitis 640216130 J30.2 Lipoma of skin and subcutaneous tissue of neck 88376598 D17.0 Allergy to food 50058742 1 Z91.018 Seasonal allergy 2378108 04 J30.2 Obesity 620765985 E66.9 Arthritis 2827395 M19.90 [id number] Hamzah Teixeira MD [facility] (Adult/Fa m Med) [address] [place] [address] 05/04/2018 14:49:16 05/10/2018 13:10:35 Essential hypertension 23274213 I10 Hyperlipidemia 37143592 E78.5 Electrocar diogram abnormal 748829066 R94.31 Screening mammography 24 924625 Z12.31 Lymphedema 013308022 I89 .0 Degenerative disorder 36 9971477 R69 Disorder o f coronary artery 421478276 I77.9 Rheumatoid arthritis 698 92884 M06.9 Overweight 679102468 E66 .3 [id number] Hamzah Teixeira MD [facility] (Adult/Fa m Med) [address] [place] [address] 2018 12:12:18 2018 13:24:10 Essential hypertension 83580925 I10 Hyperlipidemia 10977289 E78.5 Rheumatoid arthritis 698 32789 M06.9 Disorder o f coronary artery 504184453 I77.9 Lymphedema 590488381 I89 .0 History of mastectomy 42 6518390 Z90.12 left Degenerative disorder 36 2317036 R69 Electrocar diogram abnormal 500401989 R94.31 [id number] MD [facility] Goznalez (Adult Med) [address] [place] [address] 11/23/2018 14:14:27 11/24/2018 10:00:49 General examination of patient 283167815 Z00.01 Ulnar jennifer ation of hand 471680410 M21.839 Unexplaine d weight loss 438300105 R63.4 Nausea and vomiting 1693 2000 R11.2 Gastroente ritis?Less likely bowel obstructio n History of hysterectomy 068822310 Z90.711 History of left mastectomy 525972071 Z90.12 Lymphedema 202039644 I89 .0 Dizziness 790292630 R42 Essential hypertension 93360660 I10 Meds are on hold Hyperlipidemia 19503635 E78.5 Meds are on hold Disorder o f coronary artery 556704534 I77.9 Abdominal pain 48873158 R10.9 Viral screening 02085383 4 Z11.59 [id number] Cheryl Simon MD [facility] (Adult Med) [address] [place] [address] 12/28/2018 11:29:44 12/29/2018 08:13:55 Administration of influenza vaccine 32872517 Z23 Lesion of liver 63681545 0 K76.9 MRI Liver protocol for the Hepatic lesions noted on the CT scan of the A/P 11/23/2018 Ulnar jennifer ation of hand 254370271 M21.839 Hyperlipidemia 47296450 E78.5 Mass of soft tissue 4449 31114 R22.9 Administra tion of pneumococcal vaccine 74898541 Z23 Disorder o f coronary artery 623506511 I77.9 Benign hypertension 1072 5009 I10 Hiatal hernia 45896423 K 44.9 Left inguinal hernia 236 722228 K40.90 Osteoarthritis of hip 23 6826821 M16.0 Diverticul ar disease of colon 333638943 K57.30 [id number] MD Ambreen Gonzalez (Adult Med) [address] [place] [address] 03/26/2019 14:43:45 03/26/2019 15:23:58 Diastolic dysfunction 3333411 I51.9 Discussed Left ventr icular hypertrophy 94338692 I51.7 Discussed Liver cyst 02595830 K76. 89 Discussed Lipoma of skin 365580582 D17.30 Osteoarthr itis of joint of hand 35431502 M19.049 Chronic ac quired lymphedema 61014606 I89.0 Swelling o f upper limb 185154310 R22.32 [id number] MD Ambreen Gonzalez (Adult Med) [address] [place] [address] 05/07/2019 14:33:41 05/07/2019 15:42:33 Lymphedema 297803821 I89.0 Localized adiposity 2704 55098 E65 DiscussedC olonoscopy report [id number] MD Ambreen Gonzalez (Adult Med) [address] [place] [address] 11/22/2019 14:50:17 11/23/2019 14:54:42 Screening for malignant neoplasm of breast 088195189 Z12.39 Abdominal distension symptom 774808529 R14.0 Medication monitoring 39 1823004 Z51.81 Disorder o f lipid metabolism 997792815 E78.9 [id number] MD Ambreen Gonzalez (Adult Med) [address] [place] [address] 0 02/14/2020 08:08:08 02/15/2020 07:09:14 Liver cyst 67262378 K76.89 Discussed Cyst of kidney 636108881 N28.1 Discussed Administra tion of pneumococcal vaccine 48144795 Z23 Immunization due 0443318 08 Z28.3 History of malignant neoplasm of breast 366808157 Z85.3 The scar needs to be reviewed [id number] MD Ambreen Gonzalez (Adult Med) [address] [place] [address] 02/15/2020 11:04:59 02/18/2020 09:16:41 Abdominal mass 850771592 R19.00 History of malignant neoplasm of breast 391377668 Z85.3 The scar needs to be reviewed Localized swelling of chest wall 6541738947 0427314 R22.2 History of left mastectomy 416252822 Z90.12 [id number] MD Ambreen Gonzalez (Adult Med) [address] [place] [address] 06/24/2020 07:52:13 06/25/2020 07:32:02 Renewal of prescription 306289841 Z76.0 Screening for malignant neoplasm of colon 101180153 Z12.11 It was apparently done [address] aRy Screening for malignant neoplasm of breast 748198513 Z12.31 Localized swelling of chest wall 3934143603 8630389 R22.2 US suggests a seroma or hematoma, the results were released to the portal on 03/05/2020 Essential hypertension 95916089 I10 Uncontroll ed as she is still waiting on her Irbesartan /HCTZ [id number] MD Ambreen Gonzalez (Adult Med) [address] [place] [address] 12/02/2020 14:47:45 12/03/2020 10:51:13 Abdominal pain 22173604 R10.9 CT 11/23/2018C olonoscopy ordered 11/30/2018, she states that she apparently had one that was normal in 2017.A CT scan was ordered on 02/15/2020 , it does not appear that it was ever done. Unfortunat elly, I do not feel the mass I felt on her 02/2020 exam, she however needs a CT scan. Imaging of gastrointestinal tract abnormal 489139461 R93.3 CT scan 2018 (2 mm hepatic lesion,HH, L IH, Colonic diverticul osis, Degenerati ve changes in the hips L>R and Degnerativ e changes at the pubic symphysis and SI joint MRI 03/20/2019 Multiple benign appearing hepatic lesions cysts vs harmatomas . Adult [facility] th examination 069105731 Z00.01 [id number] MD Ambreen Gonzalez (Adult Med) [address] [place] [address] 12/29/2020 14:30:30 12/29/2020 15:23:03 Postoperative seroma 925829521 T81.89XA The US done on 12/15/2020 suggests a seroma or an infectionS he has been referred to the surgeon Cardiomegaly 1355509 I51 .7 Cyst of kidney 852256829 N28.1 Discussed Liver cyst 38895263 K76. 89 Discussed Imaging of gastrointestinal tract abnormal 153086362 R93.3 CT scan 2018 (2 mm hepatic lesion,HH, L IH, Colonic diverticul osis, Degenerati ve changes in the hips L>R and Degnerativ e changes at the pubic symphysis and SI joint MRI 03/20/2019 Multiple benign appearing hepatic lesions cysts vs harmatomas . Addendum 12/29/2020 bnormality of the ascending colonGI [id number] MD Ambreen Gonzalez (Adult Med) [address] [place] [address] 0 02/25/2021 15:21:07 02/27/2021 09:59:41 Pulmonary hypertension 77681369 I27.20 Left ventr icular hypertrophy 24342010 I51.7 Discussed Atrial sep ta aneurysm 17130236 I25.3 Swollen abdomen 16380881 R14.[address] scan does not suggest anything of significan ce in the RLQ and she apparently had a normal colonoscop y in 2016. I have requested a copy of her colonoscop [facility] [id number] CHRISTIE PHAM (Peds) [address] [place] [address] 0 02/27/2021 14:55:45 03/04/2021 16:05:22 Administration of SARS-CoV-2 mRNA vaccine 9565394609 Z23 [id number] MD Ambreen Gonzalez (Adult Med) [address] [place] [address] 0 04/08/2021 15:15:35 04/09/2021 07:28:47 Simple renal cyst 95234917 N28.1 Left ventr icular hypertrophy 11281735 I51.7 Discussed Mitral carol ve regurgitation 85573648 I34.0 Pulmonary hypertension 12768496 I27.20 Her Salem score was low, she has an appointmen t with the cardiologi [id number] [facility] [address] [place] [address] 04/14/2021 13:48:28 04/15/2021 07:35:58 Postoperative seroma 950886419 T81.89XS chronic postoperat dwayne seroma. Likely has been present for years if not decades. No surgical indication at this time. No signs of infection, no pain, no induration . Given small size, drainage is likely to carry more risk of infection, recurrence , and chronic wound than would be worth the small amount of fluid present. 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 Can consider compressio n therapy with pump garments, or referral to PT/OT. States that she does not like wearing a compressio n sleeve because her hand still stays swollen. [id number] Keith Stout DO [facility] [address] [place] [address] 04/29/2021 14:48:49 04/30/2021 07:43:53 Lower abdominal pain 23857311 R10.30 Has a outside colonoscop y scheduled May. We need the report and will see her after that. Diverticul osis of colon 384488693 K57.30 [id number] Cheryl Simon MD [facility] (Adult Med) [address] [place] [address] 05/13/2021 15:58:14 05/14/2021 05:13:26 History of total knee arthroplasty 6864686546 105 Z96.659 Impaired mobility 426777 05 Z74.09 Her handicappe d placard form was completed Rheumatoid arthritis 698 44018 M06.9 Possibly seronegati ve arthritis [id number] Keith Stout DO [facility] [address] [place] [address] 07/08/2021 14:54:54 08/17/2021 08:02:30 Gastritis 7625896 K29.70 we need bx reports from EGD and Colon Will Rx Rectal polyp 05603565 K6 2.1 from EGD and Colonoscop y Diverticul osis of colon 224605968 K57.30 [id number] MD Ambreen Gonzalez (Adult Med) [address] [place] [address] 08/04/2021 12:34:40 08/05/2021 10:03:33 Pulmonary hypertension 66913852 I27.20 Her Salem score was low, she has been following up with the cardiologi st Dyspnea on exertion 6084 5006 R06.09 Essential hypertension 04362524 I10 Uncontroll ed, but she has been prescribed Diltiazem Medication monitoring 39 0836392 Z51.81 [id number] MD Ambreen Gonzalez (Adult Med) [address] [place] [address] 08/19/2021 13:58:11 08/20/2021 12:30:07 Congestive heart failure 22157801 I50.9 StableCard iology follow up needed Body mass index 25-29 - overweight 862306703 Z68.26 Medication monitoring 39 3283664 Z51.81 Medication review done by doctor 156538311 Z76.89 Discussed [id number] MD Ambreen Gonzalez (Adult Med) [address] [place] [address] 01/07/2022 14:41:08 01/08/2022 11:22:10 Administration of influenza vaccine 31426814 Z23 Renal insufficiency 7231 74940 N28.9 Allergic disposition 609 288367 T78.40XA Contact dermatitis ? Impaired f asting glycemia 586548477 R73.01 Disorder o f coronary artery 515951636 I77.9 Medication monitoring 39 4426997 Z51.81 Screening for malignant neoplasm of breast 347693961 Z12.31 [id number] Keith Stout DO [facility] [address] [address] 01/28/2022 16:03:02 01/29/2022 09:35:13 Diverticulosis of colon 682600594 K57.30 Ventral in cisional hernia 796696363 K43.2 pt wants to avoid surgery for now. Chronic gastritis 504400 9 K29.50 [id number] MD Ambreen Gonzalez (Adult Med) [address] [place] [address] 05/10/2022 15:03:22 05/12/2022 15:16:54 Overweight 903596177 E66.3 Echocardio gram abnormal 279811172 R93.1 TTE 03/02/2022 ; Mild concentric LVH, DD, EF 60% and mild MR Abdominal pain 18331203 R10.9 Chronic RLQ pain and persistent compliant of fullness, this has been pored over in the past.Colon oscopy 05/21/2021 T 11/23/2018. Repeat the CT without IV contrast as her Cr is 1.49 Renal insufficiency 7231 53172 N28.9 [id number] MD Ambreen Gonzalez (Adult Med) [address] [place] [address] 07/21/2022 14:39:22 07/21/2022 16:08:30 Abdominal pain 81481546 R10.9 US (Medical renal disease, renal cysts)CT (Cardiomeg geno, small pericardia l effusion, Hepatic cysts, midline hernia, DDD & OA of the hips) OV 05/10/2022h ronic RLQ pain and persistent compliant of fullness, this has been pored over in the past.Colon oscopy 05/21/2021 T 11/23/2018. Repeat the CT without IV contrast as her Cr is 1.49 Hernia of anterior abdominal wall 200102188 K43.9 Chronic ki dney disease 787150934 N18.9 Immunization advised 310 168149 Z71.9 [id number] CHRISTIE PHAM (Peds) [address] [place] [address] 0 08/18/2022 14:35:06 08/19/2022 09:01:18 Administration of SARS-CoV-2 mRNA vaccine 2831224728 Z23 [id number] MD Ambreen Gonzalez (Adult Med) [address] [place] [address] 01/28/2023 13:01:47 01/28/2023 15:05:27 Hernia of anterior abdominal wall 467280292 K43.9 Immunization advised 310 794505 Z71.9 Prediabetes 377957111 R7 3.03 HBA1C 6.1% Postmastec aurea lymphedema syndrome 63601423 I97.2 History of malignant neoplasm of breast 984049607 Z85.3 Anemia 782938470 D64.9 Medication monitoring 39 8307739 Z51.81 Adult heal th examination 630719618 Z00.01 [id number] Cheryl Simon MD [facility] (Adult Med) [address] [place] [address] 02/23/2023 14:01:29 02/23/2023 14:59:51 Pre-surgery evaluation 306653832 Z01.818 Low risk [id number] Cheryl Simon MD [facility] (Adult Med) [address] [place] [address] 04/06/2023 13:37:05 04/07/2023 09:28:34 Mass of chest wall 394360452 R22.2 History of L. mastectomy US of the chest wall 03/14/2023 , 1.9 x 0.8 cm massPlease send a copy to the surgeon, Dr Aguilar.Re ferral back to the general surgeon, Dr Aguilarthe n follow up with me. Anemia 309074840 D64.9 The etiology is unclear but in includes CKD and less likely her recent surgery.Hb 10.4, HCT 34 on 02/23/2023 Hb 10.1, HCT 33 on 02/03/2023 Colonoscop y 05/21/2021E GD 05/21/2021 T A&P 05/20/2022 [id number] Cheryl Simon MD [facility] (Adult Med) [address] [place] [address] 05/18/2023 14:35:30 05/19/2023 11:20:44 Anemia 826857684 D64.9 EGD; HH, Antral gastritis. Pathology benignRech ryan labs Note from 04/08/2023La bs 04/06/2023 Hb 10.8, nl B12, low normal Iron and FerritinGI re-evaluat ion needed OV 04/06/2023Th e etiology is unclear but in includes CKD and less likely her recent surgery.Hb 10.4, HCT 34 on 02/23/2023 Hb 10.1, HCT 33 on 02/03/2023 Colonoscop y 05/21/2021E GD 05/21/2021 T A&P 05/20/2022 Mass of chest wall 65514 4000 R22.2 Note from the general surgeon Note from 03/15/2023 History of L. mastectomy US of the chest wall 03/14/2023 , 1.9 x 0.8 cm massPlease send a copy to the surgeon, Dr Aguilar.Re ferral back to the general surgeon, Dr Aguilarthe n follow up with me. Body mass index 20-24 - normal 043413210 Z68.23 Essential hypertension 17097502 I10 Better when it was recheckedO V 04/06/2023Un controlled , but she is yet to take her Furosemide today. Impaired f asting glycemia 551361539 R73.01 HBA1C 6.1% on 02/16/2022 Discussed 8403711 Cheryl Simon MD [facility] (Adult Med) [address] [place] [address] [phone] 08/16/2023 14:58:48 08/17/2023 12:07:36 Anemia [id number] D64.[address] Ray's team, labs were ordered and she may need a capsule study. OV 05/18/2023E GD; HH, Antral gastritis. Pathology benignRech ryan labs Note from 04/08/2023La bs 04/06/2023 Hb 10.8, nl B12, low normal Iron and FerritinGI re-evaluat ion needed OV 04/06/2023Th e etiology is unclear but in includes CKD and less likely her recent surgery.Hb 10.4, HCT 34 on 02/23/2023 Hb 10.1, HCT 33 on 02/03/2023 Colonoscop y 05/21/2021E GD 05/21/2021 T A&P 05/20/2022 Lipoma of skin [id number] D17.30 I am not getting cut on US Mass of chest wall 74500 4000 R22.2 She needs to follow up with the general surgeon OV 05/18/2023N ote from the general surgeon Note from 03/15/2023 History of L. mastectomy US of the chest wall 03/14/2023 , 1.9 x 0.8 cm massPlease send a copy to the surgeon, Dr Aguilar.Re ferral back to the general surgeon, Dr Aguilarthe n follow up with me. [id number] MD Ambreen Gonzalez (Adult Med) [address] [place] [address] [phone] 10/07/2023 14:51:01 10/08/2023 09:00:49 Nodule of subcutaneous tissue of chest wall [id number] R22.2 Mass of chest wall 33390 4000 R22.2 Lipoma of skin 790820857 D17.30 Essential hypertension 43536125 I10 Slightly elevated. [id number] MD Ambreen Gonzalez (Adult Med) [address] [place] [address] [phone] 11/23/2023 14:40:37 11/24/2023 15:22:25 Nodule of subcutaneous tissue of chest wall [id number] [id number] R22.2 Follow up with the surgeonA copy has been faxed and another copy was placed in a sealed envelope to be given to Dr Aguilar, as the patient has an appointmen t with him on 11/23/2023. [id number] MD Ambreen Gonzalez (Adult Med) [address] [place] [address] [phone] 05/25/2024 14:25:27 05/28/2024 15:16:36 Nodule of subcutaneous tissue of chest wall [id number] 0533901 R22.[address] Aguilar, he will see her in the office OV 11/23/2023F ollow up with the surgeonA copy has been faxed and another copy was placed in a sealed envelope to be given to Dr Aguilar, as the patient has an appointmen t with him on 11/23/2023. Essential hypertension [id number] I10 Stable [id number] MD Ambreen Gonzalez (Adult Med) [address] [place] [address] [phone] 06/14/2024 15:13:50 06/15/2024 09:18:38 Nodule of subcutaneous tissue of chest wall [id number] 1396435 R22.2 OV 05/19/2024D iscussed with dr Aguilar, he will see her in the office OV 11/23/2023F ollow up with the surgeonA copy has been faxed and another copy was placed in a sealed envelope to be given to Dr Aguilar, as the patient has an appointmen t with him on 11/23/2023. Mass of right breast 539 [id number] 1671975 N63.10 Atypical chest pain 1025 21849 R07.89 Essential hypertension 54834779 I10 Stable Health Concerns Section Related Observation LastModified by Organization Detai ls LastModified Time None Recorded Concern Status LastModified by Organization Details LastModified Time None Recorded Advance Directives Directive N: Payers Encounter Date Sequence Insurance Name Policy Number Policy García Covered Member ID García Member ID Guarantor Name 08/16/2023 1 [facility] (MEDICARE REPLACEMENT/AD VANTAGE - PPO) [id number] Jennifer Carson [id number] Jennifer Carson 08/16/2023 2 [place]ARE [place] MEDICARE REPLACEMENT PRIMARY) Jennifer Carson [id number] Jennifer Carson 10/07/2023 1 [facility] (MEDICARE REPLACEMENT/AD VANTAGE - PPO) [id number] Jennifer Carson [id number] Jennifer Carson 10/07/2023 2 [place]ICARE [place]PLACEMENT [place]IMARY) Jennifer Carson [id number] Jennifer Carson 11/23/2023 1 [facility] (MEDICARE REPLACEMENT/AD VANTAGE - PPO) [id number] Jennifer Carson [id number] Jennifer Carson 11/23/2023 2 [place]ICARE REPLACEMENT PRIMARY) Jennifer Carson [id number] Jennifer Carson 05/25/2024 1 [facility] (MEDICARE REPLACEMENT/AD VANTAGE - PPO) [id number] Jennifer Carson [id number] Jennifer Carson 05/25/2024 2 [place] OR MEDICARE REPLACEMENT PRIMARY) Jennifer Carson [id number] Jennifer Carson 06/14/2024 1 [facility] (MEDICARE REPLACEMENT/AD VANTAGE - PPO) [id number] Jennifer Carson [id number] Jennifer Carson 06/14/2024 2 [place] OR MEDICARE REPLACEMENT PRIMARY) Jennifer Carson [id number] Jennifer Carson Notes Date Note Type Note Provider Name and Address Organization Details Recorded Time 08/16/2023 text/html The lung doctor gave me some pills, when I read the side effects it makes your skin peel It's getting harder The kidney doctor said this thing on my neck is getting bigger Ms Carson appears to have been started on a new medication by her water chaser, she read the side effects and she has refused to start it. She is unsure of the name and her water chaser apparently also told her that her lipoma was getting bigger and she feels that her left sided chest lesion has increased. In the interim, she was also seen by GI and she may need a capsule study. Cheryl Simon MD Attn: Accounting, [address] [place], [address], [facility] 08/16/2023 20:43:02 10/07/2023 text/html I have a knot, my left side I have to go the to have my hernia done Ms Carson reports a new nodule on the lower part of her sternum. Cheryl Simon MD Attn: Accounting, [address] [place], [address], [facility] 10/07/2023 15:42:59 11/23/2023 text/html On my paper, beka cuba said come in today He repaired the hernia on the 23 of October Ms Carson is doing well, she apparently had her midline abdominal hernia repaired last month. Cheryl Simon MD Attn: Accounting, [address] [place], [address], [facility] 11/23/2023 16:42:28 05/25/2024 text/html Hypertension F/UReported bypatient.Associat ed Symptoms:no dizziness; no lightheadedness; no chest pain; no shortness of breath; no palpitations; no edema; no calf pain with exertion Lifestyle:regular exercise; limiting/avoiding salt Medications:taking medications as directed; no side effects from medication; checks blood pressure at home, range: (?) Check up A knot, he didn't say it was nothing It keeps on going up and down Ms Carson is doing well, her blood pressure tends to fluctuate despite full compliance with all her medications. She feels that the nodule on the anterior part of her chest wall has increased in size and it is firmer than it was. She had an US on 03/14/2023, a CT on 10/18/2023 and was last seen by the general surgeon on 04/07/2023. Cheryl Simon MD Attn: Accounting,[address] [place], [address], [facility] 05/25/2024 15:31:44 06/14/2024 text/html Breast MassReported bypatient.Location :right Quality:asymptomat ic Severity:mild Duration:persisten t Context:performs breast self examination; prior left breast cancer; mastectomy (L); radiation treatment Associated Symptoms:no fever; no skin redness; no nipple discharge; no breast swelling; no arm pain;chest pain(L) I can feel a little something Ms Carson reports a mass at 6 o' clock in the right breast, a funny feeling in her left chest and the persistent nodule around the Xiphoid process. On her 05/25/2024 visit, I spoke to the general surgeon , Dr Aguilar who she has seen for the chest wall nodule and she was referred back to him. She scheduled an appointment and then cancelled it, she says she was of the opinion that the surgeon was a general surgeon. She then went for her routine MMG of the right breast and at that time mentioned the right breast mass. Cheryl Simon MD Attn: Accounting,[address] [place], [address], [facility] 06/14/2024 18:06:56 OBGyn Episode No OBEpisode recorded.
--- OUTSIDE RECORDS SUMMARY | 2024-08-02 14:46 | XMS_ITS | Data Portability ---
Author Organization [place] - [facility] [employer], Main Office Address [address] [place] [address] Care Team Providers Care Work Counselor Name Role Phone CHERYL SIMON Primary Care Provider CHERYL SIMON Referring Provider [phone] Assessment Encounter Date Assessment Date Assessment LastModified by Organization Details LastModified Time 04/28/2023 04/28/2023 left chest wall nodule. Status post mastectomy for carcinoma proximally [address] scan does not reveal any concerning issues. Do not feel biopsy at this time is necessary. Patient will monitor area and follow-up if changes occur. Discussed with patient and family [facility] Not available 04/28/2023 13:12:54 06/09/2023 06/09/2023 incisional ventral hernia, asymptomatic. we will continue conservative management for now. Patient will follow-up in 8 weeks [facility] Not available 06/09/2023 13:51:13 09/22/2023 09/22/2023 Incisional ventral hernia. Longstanding. Patient feels symptoms are worsening. Options discussed with patient. We will schedule for incisional ventral hernia repair with mesh under anesthesia. Risks and benefits were discussed main risks include bleeding infection bowel injuries and recurrence onderlancken Not available 09/22/2023 12:34:11 11/01/2023 11/01/2023 status post repair perfusional ventral hernia with mesh. Doing well overall. Follow-up in 2 weeks onderlankaiten Not available 11/01/2023 11:27:25 11/24/2023 11/24/2023 status post repair of ventral hernia with mesh. Doing well overall. Follow up p.r.n. gvonderlankaiten Not available 11/24/2023 12:33:57 Plan of Treatment Reminders Order Date Submit Date Provider Last Modified By Organization Details Last Modified Time Details Appointments None record ed. Lab None record ed. Referral None record ed. Procedures None record ed. Surgeries None record ed. Imaging None record ed. Medication Orders None record ed. Patient TargetsNo targets recorded. Patient InstructionsNo instructions recorded. Reason for Referral None Reported. Results Created Date Observation Date Name Description Value Unit Range Abnormal Flag Note LastModifiedBy Organization Detail LastModifiedTime 04/07/19 24 04/07/2023 CREAT ININE , I-STA T creatinine 1.2 mg/dL 0.6-1. 3 Not Available [facility] (Lab) [address] [place], [address], 04/08/2023 09:37:48 10/24/19 24 10/24/2023 CBC/C OMPLE TE BLD COUNT W/DIF F white blood cells 5.6 x10'3 /uL 4.2-10 .8 Not Available [facility] (Lab) [address] [place], [address], 10/24/2023 08:22:55 10/24/19 24 10/24/2023 CBC/C OMPLE TE BLD COUNT W/DIF F red blood cells 4.72 x10'6 /uL 3.80-5 .20 Not Available [facility] (Lab) [address] [place], [address], 10/24/2023 08:22:55 10/24/19 24 10/24/2023 CBC/C OMPLE TE BLD COUNT W/DIF F hemoglobin 11.5 g/dL 12.0-1 5.6 low Not Available [facility] (Lab) [address] [place], [address], 10/24/2023 08:22:55 10/24/19 24 10/24/2023 CBC/C OMPLE TE BLD COUNT W/DIF F hematocrit 36.6 % 35.7-4 5.7 Not Available [facility] (Lab) [address] [place], [address], 10/24/2023 08:22:55 10/24/19 24 10/24/2023 CBC/C OMPLE TE BLD COUNT W/DIF F mean red cell volume 77.5 fL 82.0-9 9.0 low Not Available [facility] (Lab) [address] [place], [address], 10/24/2023 08:22:55 10/24/19 24 10/24/2023 CBC/C OMPLE TE BLD COUNT W/DIF F mean red cell hemoglobin 24.4 pg 27.0-3 3.0 low Not Available [facility] (Lab) [address] [facility] [place], [address], 10/24/2023 08:22:55 10/24/19 24 10/24/2023 CBC/C OMPLE TE BLD COUNT W/DIF F mean RBC HGB concentratio n 31.4 g/dL 31.0-3 6.0 Not Available [facility] (Lab) [address] [place], [address], 10/24/2023 08:22:55 10/24/19 24 10/24/2023 CBC/C OMPLE TE BLD COUNT W/DIF F red cell distribution width 19.8 % 11.8-1 5.5 high Not Available [facility] (Lab) [address] [place], [address], 10/24/2023 08:22:55 10/24/19 24 10/24/2023 CBC/C OMPLE TE BLD COUNT W/DIF F platelets 251 x10'3 /uL 150-40 0 Not Available [facility] (Lab) [address] [place], [address], 10/24/2023 08:22:55 10/24/19 24 10/24/2023 CBC/C OMPLE TE BLD COUNT W/DIF F mean platelet volume 10.4 fL 9.0-12 .4 Not Available [facility] (Lab) [address] [place], [address], 10/24/2023 08:22:55 10/24/19 24 10/24/2023 CBC/C OMPLE TE BLD COUNT W/DIF F neutrophils 52.0 % 39.0-7 2.0 Not Available [facility] (Lab) [address] [place], [address], 10/24/2023 08:22:55 10/24/19 24 10/24/2023 CBC/C OMPLE TE BLD COUNT W/DIF F lymphocytes 32.1 % 16.0-4 7.0 Not Available [facility] (Lab) [address] [facility] [place], [address], 10/24/2023 08:22:55 10/24/19 24 10/24/2023 CBC/C OMPLE TE BLD COUNT W/DIF F monocytes 10.7 % 5.0-12 .0 Not Available [facility] (Lab) [address] [place], [address], 10/24/2023 08:22:55 10/24/19 24 10/24/2023 CBC/C OMPLE TE BLD COUNT W/DIF F eosinophils 4.1 % 1.0-7. 0 Not Available [facility] (Lab) [address] [place], [address], 10/24/2023 08:22:55 10/24/19 24 10/24/2023 CBC/C OMPLE TE BLD COUNT W/DIF F basophils 0.9 % 0.0-2. 0 Not Available [facility] (Lab) [address] [place], [address], 10/24/2023 08:22:55 10/24/19 24 10/24/2023 CBC/C OMPLE TE BLD COUNT W/DIF F immature granulocytes 0.2 % 0.00-0 .50 Not Available [facility] (Lab) [address] [facility] [place], [address], 10/24/2023 08:22:55 10/24/19 24 10/24/2023 CBC/C OMPLE TE BLD COUNT W/DIF F neutrophils, absolute count 2.92 x10'3 /uL 1.5-8. 0 Not Available [facility] (Lab) [address] [place], [address], 10/24/2023 08:22:55 10/24/19 24 10/24/2023 CBC/C OMPLE TE BLD COUNT W/DIF F lymphocytes, absolute count 1.80 x10'3 /uL 1.07-3 .43 Not Available [facility] (Lab) [address] [place], [address], 10/24/2023 08:22:55 10/24/19 24 10/24/2023 CBC/C OMPLE TE BLD COUNT W/DIF F monocytes, absolute count 0.60 x10'3 /uL 0.29-0 .99 Not Available [facility] (Lab) [address] [place], [address], 10/24/2023 08:22:55 10/24/19 24 10/24/2023 CBC/C OMPLE TE BLD COUNT W/DIF F eosinophils, absolute count 0.23 x10'3 /uL 0.02-0 .53 Not Available [facility] (Lab) [address] [place], [address], 10/24/2023 08:22:55 10/24/19 24 10/24/2023 CBC/C OMPLE TE BLD COUNT W/DIF F basophils, absolute count 0.05 x10'3 /uL 0.01-0 .08 Not Available [facility] (Lab) [address] [place], [address], 10/24/2023 08:22:55 10/24/19 24 10/24/2023 CBC/C OMPLE TE BLD COUNT W/DIF F immature granulocytes ,absolute 0.01 x10'3 /uL 0.00-0 .05 Not Available [facility] (Lab) [address] [place], [address], 10/24/2023 08:22:55 10/24/19 24 10/24/2023 CBC/C OMPLE TE BLD COUNT W/DIF F nucleated red blood cells 0.0 % -0 Not Available [facility] (Lab) [address] [place], [address], 10/24/2023 08:22:55 10/24/19 24 10/24/2023 CBC/C OMPLE TE BLD COUNT W/DIF F NRBC# 0.00 x10'3 /uL Not Available [facility] (Lab) [address] [place], [address], 10/24/2023 08:22:55 10/24/19 24 10/24/2023 POTAS SIUM potassium 3.5 mmol/ L 3.5-5. 1 Not Available [facility] (Lab) [address] [place], [address], 10/24/2023 08:28:29 10/24/19 24 10/24/2023 TYPE AND SCREE N patient ABO group and Rh O POSITI VE Not Available [facility] (Lab) [address] [place], [address], 10/24/2023 09:40:44 10/24/19 24 10/24/2023 TYPE AND SCREE N patient antibody screen NEGATI VE Not Available [facility] (Lab) [address] [place], [address], 10/24/2023 09:40:44 10/24/19 24 10/24/2023 ABO/R H CONFI RMATI ON patient ABO group and Rh O POSITI VE Not Available [facility] (Lab) [address] [place], [address], 10/24/2023 09:41:09 04/07/19 24 04/07/2023 CT, chest , w/ contr ast [facility] [address] [facility] [address], [place] [address] Patien t Name: CHRISTELLE GRIGGS Access ion #: [id number] Sex: F : 1945 4 Dictat ed By: Mick Malik Attend ing Physic piyush: GHADA VERDUZCO Orderi ng Physic piyush: GHADA VERDUZCO Exam Date: 2023 11:25 AM Exam Name: CT CHEST W Admitt ing Diagno sis(es ): Proced ure: 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 Sheehan l and sagitt al reform ations were perfor med by the techno logist . 3D image postpr ocessi ng was perfor med on a [employer] workst ation and images were used for interp retati on and report ing. Radiat ion Dose : CT Dose: CTDI volume is 7.8 mGy. Dose-l ength produc t is 270.6 mGy*cm Findin gs: Lower Neck: Visual ized portio ns of the thyroi d gland are unrema rkable . Aorta and Vascul ature: There is normal calibe r of thorac ic aorta withou t eviden ce of aortic dissec tion, intram ural hemato ma or aneury sm. Lymph Nodes: There is no signif icant intrat horaci c or axilla ry lympha denopa thy on CT size criter ia. Medias tinum: Cardio megaly . There is no perica rdial effusi on. The esopha haylie is unrema rkable . Lungs: Scarri ng or atelec tasis in the left upper lobe. No other pleura l or parenc hymal abnorm ality is identi fied. The airway is patent . There is no eviden ce for pneumo thorax . Page 1 [facility] [address] [facility] [place] [address] Patien t Name: CHRISTELLE GRIGGS Access ion #: [id number] Sex: F : 1945 4 Dictat ed By: Mick Malik Attend ing Physic piyush: ANNEMARIE JONES Orderi Physic piyush: GHADA VERDUZCO Exam Date: 2023 11:25 AM Exam Name: CT CHEST W Admitt ing Diagno sis(es ): Muscul oskele ta: No aggres sive focal bony lesion s, acute fractu res or disloc ation. Chest wall: 0.9 cm soft tissue densit y in the subcut aneous fat of the medial left chest wall just overly ing the muscle at approx imatel y the 9:00 positi on. Partia lly visual ized upper abdome n is demons trates a few hepati c cysts. IMPRES [place]: 0.9 cm soft tissue densit y in the subcut aneous fat of the medial left chest wall. Electr onical ly Signed by: Mick Malik at 2023 14:18: 15 PM Page [address] (Imaging) [address] [place], [address], 04/08/2023 10:25:51 04/07/19 24 04/07/2023 XR, chest No observ ation record ed. [address] [place], [address], 04/08/2023 10:23:33 10/19/19 24 10/18/2023 CT, abdom en + pelvi s, w/o contr ast No observ ation record ed. [place] [address] Cheryl Simon MD [address] [place], [address], 10/19/2023 12:06:44 11/23/19 24 10/18/2023 CT, abdom en + pelvi s, w/o contr ast No observ ation record ed. Cheryl Simon MD [address] [facility], [place], [address], 11/29/2023 14:34:44 Result Notes None recorded. Problems Name Problem SNOMED Code Status Onset Date Resolution Date Notes Provider Name and Address Organization Details Recorded Time Hammer toe 232032910 Active 2021 Not Available [facility] 3 00:37:02 Hyperchole sterolemia 52106597 Active Not Available [facility] 3 00:37:02 Pain in right foot 7194072503168 07 Active 2021 Not Available [facility] 3 00:37:02 Hypertensi ve disorder 33052300 Active Not Available [facility] 3 00:37:03 Ingrowing toenail 488213927 Active 2021 Not Available [facility] 3 00:37:03 Ventral incisional hernia 487789898 Active 2022 Nicanor delgado MD [address] [place] [address], [place], [address] , [employer] 3 14:17:34 Mass of chest wall 067453750 Active 2022 Nicanor delgado MD [address], [place] [address], [place], [address] , [employer] 3 14:12:16 Nodule of subcutaneo us tissue of chest wall 6516820336137 9103 Active 2023 Nicanor delgado MD [address], [place] [address], [place], [address] , [employer] 4 15:04:48 Problem Notes None recorded. Procedures Surgical History Date Name Laterality Status Provider Name and Address Organization Details Recorded Time 03/04/20 23 Amputation completed Frances Martinez, MA [facility] 03/23/2023 11:26:35 05/21/19 22 Colonoscopy completed Frances Martinez MA [facility] 03/23/2023 11:25:50 04/23/19 15 Orthopedic Surgery completed Frances Martinez MA [facility] 03/23/2023 11:27:34 04/04/19 05 simple mastectomy completed Frances Martinez MA [facility] 03/23/2023 11:25:21 total knee replacement completed Frances Martinez MA [facility] 11/09/2022 12:10:23 Endoscopy completed Frances Martinez MA [facility] 11/09/2022 12:10:51 Total hysterectomy completed Frances Martinez MA [facility] 11/09/2022 12:11:06 simple mastectomy completed Frances Martinez MA [facility] 11/09/2022 12:11:44 Imaging Results Imaging Date Name Status LastModified by [facility] Details LastModified Time 04/07/2023 CT, chest, w/ contrast completed [address] (Imaging) [address] [place], [address], 04/08/2023 10:25:51 04/07/2023 XR, chest completed [address] [place], [address], 04/08/2023 10:23:33 10/18/2023 CT, abdomen + pelvis, w/o contrast [place] [address] Cheryl Simon MD [address] [place], [address], 10/19/2023 12:06:44 10/18/2023 CT, abdomen + pelvis, w/o contrast [place] [address] Cheryl Simon MD [address] [place], [address], 11/29/2023 14:34:44 Procedure Notes None recorded. Medical Equipment None Reported. Allergies Allergen ID Allergen Name Allergen Category Reaction Reaction Severity Criticality Documentation Date Start Date Code Code System Note Provider Name and Address Organization Details Recorded Time 65145 irbesarta n medicatio n Not available Not available Not available 06/03/2022 62830 RxNorm Not Available [facility] 3 00:39:49 00990 acetamino phen / oxycodone medicatio n Not available Not available Not available 11/01/2023 12767 3 RxNorm AYLEEN Stevens, [place] - S [facility] [employer] 4 11:21:27 Medications Name Sig Start Date Stop Date Status Note LastModified by Organization Details LastModified Time furosemide 40 mg tablet TAKE 1 TABLET BY MOUTH ONCE DAILY active Not Available Not Available No t Available carvedilol 12.5 mg tablet TAKE 1 TABLET BY MOUTH TWICE DAILY active Not Available Not Available No t Available irbesartan 150 mg-hydrochlo rothiazide 12.5 mg tablet TAKE ONE (1) TABLET BY MOUTH TWICE DAILY; *PATIENT NEEDS APPOINTMENT * active Not Available Not Available No t Available diltiazem CD 240 mg capsule,exte nded release 24 hr TAKE 1 CAPSULE BY MOUTH ONCE DAILY active Not Available Not Available No t Available hydralazine 25 mg tablet TAKE 1 TABLET BY MOUTH TWICE DAILY active Not Available Not Available No t Available allopurinol 100 mg tablet TAKE 1 TABLET BY MOUTH DAILY active Not Available Not Available Not Available tramadol 50 mg tablet TAKE 1 TABLET BY MOUTH EVERY 4-6 HOURS X 5 DAYS active Not Available Not Available No t Available simvastatin 40 mg tablet TAKE 1 TABLET BY MOUTH EVERY DAY DIRECTED active Not Available Not Available No t Available carvedilol 3.125 mg tablet TAKE 1 TABLET BY MOUTH TWICE DAILY active Not Available Not Available No t Available pantoprazole 20 mg tablet,delay ed release TAKE 1 TABLET BY MOUTH EVERY MORNING active Not Available Not Available No t Available oxycodone-ac etaminophen 5 mg-325 mg tablet TAKE 1 TABLET BY MOUTH EVERY 4 HOURS NEEDED FOR PAIN active Not Available Not Available No t Available potassium chloride ER 20 mEq tablet,exten ded release(part /cryst) TAKE 1 TABLET BY MOUTH ONCE DAILY active Not Available Not Available No t Available famotidine 20 mg tablet TAKE 1 TABLET BY MOUTH TWICE DAILY active Not Available Not Available No t Available losartan 25 mg tablet TAKE 1 TABLET BY MOUTH EVERY DAY active Not Available Not Available No t Available omeprazole 20 mg capsule,erika yed release TAKE 1 CAPSULE BY MOUTH EVERY DAY active Not Available Not Available No t Available Banophen 25 mg capsule TAKE 1 CAPSULE BY MOUTH EVERY 6 TO 8 HOURS FOR 5 DAYS NEEDED active Not Available Not Available No t Available ergocalcifer ol (vitamin D2) 1,250 mcg (50,000 unit) capsule TAKE 1 CAPSULE BY MOUTH ONCE A WEEK active Not Available Not Available No t Available methylpredni solone 4 mg tablets in a dose pack FOLLOW PACKAGE DIRECTIONS active Not Available Not Available N ot Available calcitriol 0.25 mcg capsule TAKE 1 CAPSULE BY MOUTH ONCE DAILY active Not Available Not Available No t Available ferrous sulfate 324 mg (65 mg iron) tablet,delay ed release TAKE 1 TABLET BY MOUTH EVERY DAY active Not Available Not Available No t Available potassium chloride ER 20 mEq tablet,exten ded release TAKE 1 TABLET BY MOUTH DAILY *TO BE TAKEN WITH FUROSEMIDE* active Not Available Not Available Not Available Vitals Date Recorded Body height Body mass index (BMI) Body weight Body temperature Respiratory rate Oxygen saturation Oxygen saturation in Arterial blood by Pulse oximetry Provider Name and Address Organization Details Last Updated DateTime 4 167.64 cm 25 kg/m2 91238.8 2 g 98.6 [degF] 14 /min 98 % 98 % Frances Martinez MA [facility] [employer] [facility] 4 12:11:21 Date Recorded Body height Body mass index (BMI) Body weight Body temperature Respiratory rate Oxygen saturation Oxygen saturation in Arterial blood by Pulse oximetry Heart rate Provider Name and Address Organization Details Last Updated DateTime 4 167.64 cm 25 kg/m2 39377.8 2 g 98.6 [degF] 14 /min 98 % 98 % 66 /min Frances Martinez MA [place] [employer] [facility] [employer] [facility] 4 13:15:15 Date Recorded Body height Body mass index (BMI) Body weight Heart rate Body temperature Respiratory rate Oxygen saturation Oxygen saturation in Arterial blood by Pulse oximetry Systolic blood pressure Diastolic blood pressure Provider Name and Address Organization Details Last Updated DateTime 4 167.64 cm 25 kg/m2 82567.8 2 g 76 /min 97.2 [degF] 16 /min 97 % 97 % 140 mm[Hg] 76 mm[Hg] Lisandra Willson [place] [employer] 4 11:32:21 Date Recorded Body height Body temperature Body mass index (BMI) Body weight Heart rate Respiratory rate Oxygen saturation Oxygen saturation in Arterial blood by Pulse oximetry Systolic blood pressure Diastolic blood pressure Provider Name and Address Organization Details Last Updated DateTime 4 167.64 cm 98.6 [degF] 25 kg/m2 42505.8 2 g 72 /min 14 /min 98 % 98 % 142 mm[Hg] 80 mm[Hg] Frances Martinez MA [facility] [employer] [facility] 4 11:20:59 Date Recorded Body height Body mass index (BMI) Body weight Body temperature Heart rate Respiratory rate Oxygen saturation Oxygen saturation in Arterial blood by Pulse oximetry Systolic blood pressure Diastolic blood pressure Provider Name and Address Organization Details Last Updated DateTime 4 167.64 cm 25 kg/m2 40613.8 2 g 98.6 [degF] 72 /min 14 /min 98 % 98 % 142 mm[Hg] 80 mm[Hg] Lisandra [place] [employer] [facility] [employer] 4 11:47:59 Social History Question Answer Notes LastModified by Organizat ion Details LastModified Time Tobacco Smoking Status Never Smoker Not Available [facility] 06/03/2022 00:34:13 What Is Your Level Of Alcohol Consumption? None Information not available 11/09/2022 What Is Your Level Of Caffeine Consumption? Occasional Information not available 11/09/2022 Are You Currently Employed? No Information not available 11/09/2022 What Type Of Diet Are You Following? REGULAR Information not available 11/09/2022 What Is Your Relationship Status? Single Information not available 11/09/2022 Do You Use Your Seat Belt Or Car Seat Routinely? Yes Information not available 03/23/2023 Are You Passively Exposed To Smoke? No Information no t available 03/23/2023 Do You Use Any Illicit Or Recreational Drugs? No Information not available 11/09/2022 Do You Have Any Dietary Restrictions? No Information not available 11/09/2022 Sex: Unknown Functional Status Question Answer Note LastModified by Organization D etails LastModified Time What is your exercise level? None [email or web address] Information not available 03/23/2023 Mental Status None recorded. Family History Relationship Description Onset Age of this Age Resolved Age Notes LastModified by Organization Details LastModified Time Mother Heart disease Not available 2022 12:09:20 Medical History Condition Response ARTHRITIS Y CANCER: SPECIFY ALLERGIES/HAYFEVER Y HYPERTENSION Y HIGH CHOLESTEROL / HYPERLIPIDEMIA Y Gynecological HistoryNo gynecological history recorded. Obstetrics History GPAL:G 0 P 0 0 0 0 Past Encounters Encounter ID Performer Location Encounter Start Date Encounter Closed Date Diagnosis/Indication Diagnosis SNOMED-CT Code Diagnosis ICD10 Code Diagnosis Note [id number] [facility]_ DEFAULT_1 _1 , 10/30/2021 00:00:00 10/30/2021 13:51:01 [id number] [facility]_ DEFAULT_1 _1 , 02/12/2022 00:00:00 02/15/2022 12:00:06 [id number] Nicanor delgado MD [facility] General Surgery [address] [address] 11/09/2022 11:18:01 11/10/2022 10:21:01 Ventral incisional hernia 068093847 K43.2 [id number] Nicanor delgado MD [facility] General Surgery [address] [place] [address] Ave[address] [address] 03/24/2023 11:57:37 04/03/2023 17:02:47 Mass of chest wall 023731539 R22.2 [id number] Nicanor delgado MD [facility] General Surgery [address] [address] 04/28/2023 12:06:31 04/28/2023 17:12:43 Nodule of subcutaneous tissue of chest wall 7800551295 [id number] R22.2 [id number] Nicanor delgado MD [facility] General Surgery [address] [address] 06/09/2023 12:19:21 06/09/2023 16:52:14 Ventral incisional hernia 446970697 K43.2 [id number] Nicanor delgado MD [facility] General Surgery [address] [address] 09/22/2023 11:28:08 09/22/2023 12:37:26 Ventral incisional hernia 196077343 K43.2 [id number] Nicanor delgado MD [facility] General Surgery [address] [address] 11/01/2023 11:15:42 11/01/2023 11:30:29 [id number] Nicanor delgado MD [facility] General Surgery [address] [address] 11/24/2023 11:42:59 11/24/2023 12:36:43 Health Concerns Section Related Observation LastModified by Organization Detai ls LastModified Time None Recorded Concern Status LastModified by Organization Details LastModified Time None Recorded Advance Directives Directive None Recorded Payers Encounter Date Sequence Insurance Name Policy Number Policy García Covered Member ID García Member ID Guarantor Name 04/28/2023 1 [place] [facility] [id number] Jennifer Buttper [id number] Jennifer Alli 04/28/2023 2 MED[place]ID[place]: [facility] PUBLIC AID Jennifer Alli [id number] Jennifer Alli 06/09/2023 1 [place] [facility] [id number] Jennifer J Alli [id number] Jennifer Alli 06/09/2023 2 [place] [facility] OF PUBLIC AID Jennifer Alli [id number] Jennifer Alli 09/22/2023 1 [place] [facility] [id number] Jennifer J Alli [id number] Jennifer Alli 09/22/2023 2 [place]: [facility] OF PUBLIC AID Jennifer Alli [id number] Jennifer Alli 11/01/2023 1 [place] [facility] [id number] Jennifer Rodriguez Alli [id number] Jennifer Alli 11/01/2023 2 [place]: [facility] OF PUBLIC AID Jennifer Alli [id number] Jennifer Griggs 11/24/2023 1 [place] [facility] [id number] Jennifer Griggs [id number] Jenniferryan Buttper 11/24/2023 2 [place] [facility] OF PUBLIC AID Jennifer Griggs [id number] Jennifer Griggs Notes Date Note Type Note Provider Name and Address Organization Details Recorded Time 04/28/2023 text/html no complaints Nicanor Ambrosio MD [address], [place], [address], [facility] [employer] [facility] [employer] 04/28/2023 15:04:53 06/09/2023 text/html patient followin g up for abdominal wall hernia. Denies pain nausea vomiting or any other symptom Nicanor Ambrosio MD [address], [place], [address], [employer] [facility] [employer] 06/09/2023 15:09:47 09/22/2023 text/html Patient followin g up for abdominal hernia. States that she feels is becoming larger in the last few months. Causes her pain at times. Denies nausea or vomiting. Denies any other constitutional symptoms. Nicanor Ambrosio MD [address], [place], [address], [employer] [facility] [employer] 09/22/2023 15:06:03 11/01/2023 text/html no complaints Nicanor Ambrosio MD [address], [place], [address], [employer] [facility] [employer] 11/01/2023 11:27:29 11/24/2023 text/html no complaints Nicanor Ambrosio MD [address], [place], [address], [employer] [facility] [employer] 11/24/2023 12:34:01 OBGyn Episode No OBEpisode recorded.
--- OUTSIDE RECORDS SUMMARY | 2024-08-02 14:46 | XMS_ITS ---
Author Organization [facility] Address [address] [place], [place] [id number] Care Team Providers Care Fly Winder Name Role Phone KYLEIGH SOTO Unavailable [phone] Cheryl Ramos Unavailable Unavailable HEENA SCHREIBER Unavailable [phone] Allergies Allergen (clinical drug ingredient) Drug/Non Drug Allergy documented on EMR Reaction Allergy Type Onset Date Status Shellfish (FN) Shellfish (uncoded) Unknown Allergy 04/26 active Iodine Unknown Drug Allergy 04/26/2022 active REASON FOR VISIT *General care, GC Nails ONLY, Patient presents to the office for at risk foot care Medications Medication SIG (Take, Route, Fr equency, Duration) Notes Start Date End Date Status traMADol HCl 50 MG 1 tablet as needed O rally Every 4-6 hours for 5 days 03/10/2023 Active Encounters Encounter Location Date Provider Diagnosis [facility] [address] [place], [place] [id number] 06/06/2024 HEENA SCHREIBER Onychomycosis B35.1 ; Pain in right toe(s) M79.674 ; Pain in left toe(s) M79.675 ; Intermittent claudication of both lower extremities due to atherosclerosis I70.213 ; Acquired keratoderma L85.1 and Difficulty in walking involving ankle and foot joint R26.2 Assessments Encounter Date Diagnosis (ICD Code) Assessment Notes Treatment Notes Treatment Clinical Notes Section Notes 06/06/2024 Onychomycosis (ICD-10 - B35.1) 1. Nails [...] and overall foot health 06/06/2024 Pain in right toe(s) (ICD-10 - M79.674) 06/06/2024 Pain in left toe(s) (ICD-10 - M79.675) 06/06/2024 Intermittent claudication of both lower extremities due to atherosclerosis (ICD-10 - I70.213) 06/06/2024 Acquired keratoderma (ICD-10 - L85.1) 06/06/2024 Difficulty in walking involving ankle and foot joint (ICD-10 - R26.2) 06/06/2024 Other Emollient: Recommend that the patient use an emollient such as [id number]-[id number] r Eucerin cream, Vanicream, or other lotion to the affected area. Plan Of Treatment Treatment Notes Assessment Notes Onychomycosis 1. Nails 1-5 Bilateral were debrided extensively [...] for protection, healing and overall foot health Other Emollient: Recommend that the patient use an emollient such as [id number] Eucerin cream, Vanicream, or other lotion to the affected area. Next Appt Details Follow Up: 3 Months, Reason: at risk foot care Provider Name:KYLEIGH LOMELI, 09/10/2024 02:20:00 PM, [address], [place], [place], [id number], Progress Notes * RENETTA GRIGGS: 7 (79 yo F)Acc No.[id number]:06/06/2024 Patient: COURTNEY MOISE Provider: Tamara Schreiber DPM :1945 A ge:78 Y S ex:Female Date:06/06/2024 Address:[address] [place] [address] Subjective: * Chief Complaints: * 1 . *General care. 2. GC Nails ONLY. 3. Patient presents to the office for at risk foot care. * HPI: H PI: General care P atient presents to the office for at risk foot care. Patient states that their nails are thickened, elongated and painful. Patient states that it is aggravated by shoe gear. Onset is gradual. Patient denies being diabetic., Patient denies taking prescription blood thinners but does take a daily aspirin., Date last seen by Dr. Ramos was 05/2024., Initials mf. No other pedal complaints at this time. * ROS: G eneral / Constitutional: Patient denies f atigue, fever, pain, weight loss. ? C ardiovascular: Patient denies c hest pain, dizziness, palpitations. ? M usculoskeletal: Patient denies a rthritis, joint stiffness, painful joints, childhood foot problems. P atient complains of g ait (walking problems), muscle cramps.? P eripheral Vascular: Patient denies u lceration of feet, blood clots in legs.?Patient complains of p ain / cramping in legs after exertion, cold extremities. ? P odiatric: Patient denies b urning of the feet, difficulty walking, fever. S kin: Patient denies d ry skin, discoloration, rash on feet, ulcerations. P atient complains of n ail changes, dry skin. N eurologic: Patient denies d izziness, balance difficulty, seizures, Numbness, Burning/Tingling. P atient complains of g ait abnormality. * Medical History: H ypertension, Breast cancer. * Surgical History: t onsillectomy , Tubal Ligation , Hysterectomy . * Medications: T aking traMADol HCl 50 MG Tablet 1 tablet as needed Orally Every 4-6 hours * Allergies: S hellfish: Allergy - Onset Date 04/26/2022, Iodine: Allergy - Onset Date 04/26/2022. Objective: * Vitals: * Examination: D ermatologic: Skin findings: S kin is thin, atrophic and lacking pedal hair.. Nail pathology: N ails 1-5 bilateral are elongated, thick, discolored, and dystrophic with subungual debris. They are painful to palpation. ? M usculoskeletal: Muscle Strength M uscle strength is 5/5 in regards to dorsiflexion, plantarflexion, inversion, and eversion in bilateral lower extremities.. ? V ascular: Dorsalis pedis pulse: 0 /4, bilateral. Posterior tibial pulse: 0 /4, bilaterally. Capillary refill: g reater than 3 seconds. Edema: m ild, non-pitting, bilateral. ? N eurologic: Tinel's sign: n egative. Vibratory: n ormal. Gypsum-Weinstin 5.07 monofilament I ntact protective sensation via 5.07 g swmf bilateral. C onstitutional: Constitutional T he patient is awake, alert, well developed, well groomed and well nourished.. Assessment: * Assessment: 1. O nychomycosis - B35.1 (Primary) 2 . P ain in right toe(s) - M79.674? 3. P ain in left toe(s) - M79.675 4 . I ntermittent claudication of both lower extremities due to atherosclerosis - I70.213 5 . A cquired keratoderma - L85.1 6 . D ifficulty in walking involving ankle and foot joint - R26.2 Plan: * Treatment: 2. O thers Notes: Emollient: Recommend that the patient use an emollient such as [id number]-jhddmds Eucerin cream, Vanicream, or other lotion to the affected area. * Follow Up: 3 Months (Reason: at risk foot care) * Billing Information: * Visit Code: 85103 Office Visit, Est Pt., Level 3. * Procedure Codes: * Electronic signature of LUCERO ROMERO DPM on 08/02/2024 at 02:46 PM CDT Sign off status: Pending * Provider: A nayeli M. Schreiber, DPM Date: 0 06/06/2024 Generated for Susanna george/Alexander/Adelfo on: 0 08/02/2024 02:46 PM CDT History and Physical Notes * HPI (History of Present Illness) Category Sub-Category Detail Notes Category Not es HPI General care Patient presents to the office for at risk foot care. Patient states that their nails are thickened, elongated and painful. Patient states that it is aggravated by shoe gear. Onset is gradual. Patient denies being diabetic., Patient denies taking prescription blood thinners but does take a daily aspirin., Date last seen by Dr. Ramos was 05/2024., Initials mf No other pedal complaints at this time Examination Category Sub-Category Detail Notes Category Not es Dermatologic Skin findings: Skin is thin, at rophic and lacking pedal hair. Nail pathology: Nails 1-5 bilateral are elongated, thick, discolored, and dystrophic with subungual debris. They are painful to palpation Neurologic Tinel's sign: negative Vibratory: normal Gypsum-Weinstin 5.07 monofilament Intact protective sensation via 5.07 g swmf bilateral Vascular Dorsalis pedis pulse: 0/4, bilateral Edema: mild, non-pitting, b ilateral Capillary refill: greater than 3 secon ds Posterior tibial pulse: 0/4, bilaterally Musculoskeletal Muscle Strength Muscle strength is 5/5 in regards to dorsiflexion, plantarflexion, inversion, and eversion in bilateral lower extremities. Constitutional Constitutional The patient is a wake, alert, well developed, well groomed and well nourished.
--- OUTSIDE RECORDS SUMMARY | 2024-08-02 14:46 | XMS_ITS ---
Author Organization [facility] Address [address] [address] [place] [address] Care Team Providers Care Cena Name Role Phone Driss Morales Unavailable [phone] MEDICATIONS Medication SIG (Take, Route, Frequency, Duration) Notes Start Date End Date Status Calcitriol 0.25 MCG TAKE 1 CAPSULE BY [facility] ONCE DAILY for 30 Active Losartan Potassium 25 MG 1 tablet Orally Once a day for 90 day(s) 08/18/2022 Active Allopurinol 100 MG 1 tablet Orally Once a day for 90 day(s) 08/03/2023 04/28/2024 Active Encounters Encounter Location Date Provider Diagnosis [place] [facility] [address] [facility] [address] [place] [address] 01/18/2024 Driss Morales Chronic kidney disea se, stage 2 (mild) N18.2 ; Essential (primary) hypertension I10 ; Proteinuria, unspecified R80.9 ; Renal osteodystrophy N25.0 and Vitamin D deficiency, unspecified E55.9 ASSESSMENTS Encounter Date Diagnosis Assessment Notes Treatment Notes Treatment Clinical Notes Section Notes 01/18/2024 Chronic kidney disease, stage 2 (mild) (ICD-10 - N18.2) 01/18/2024 Essential (primary) hypertension (ICD-10 - I10) 01/18/2024 Proteinuria, unspecified (ICD-10 - R80.9) 01/18/2024 Renal osteodystrophy (ICD-10 - N25.0) 01/18/2024 Vitamin D deficiency, unspecified (ICD-10 - E55.9) PLAN OF TREATMENT No Information Progress Notes * COURTNEY GRIGGSDOB: 7 (79 yo F)Acc No.[id number]:01/18/2024 Progress Notes Patient: COURTNEY GRIGGS Provider: MD MARI, F.A.C.P, F.A.S.N. :1945 Age:78 Y Sex:Female Date:01/18/2024 Address:[address] [place], [place] [id number] Subjective: * Chief Complaints: * * Medical History: * Medications: Taking Losartan Potassium 25 MG Tablet 1 tablet Orally Once a day , Taking Calcitriol 0.25 MCG Capsule TAKE 1 CAPSULE BY MOUTH ONCE DAILY , Taking Allopurinol 100 MG Tablet 1 tablet Orally Once a day , stop date 04/28/2024 Objective: Assessment: * Assessment: 1. Chronic kidney disease, stage 2 (mild) - N18.2 2. Essential (primary) hypertension - I10 3. Proteinuria, unspecified - R80.9 4. Renal osteodystrophy - N25.0 5. Vitamin D deficiency, unspecified - E55.9 Plan: * Treatment: * Billing Information: * Visit Code: 04535 Office Visit, Est Pt., Level 4. * Procedure Codes: * Sign off status: Pending * Provider: MD MARI, Tesha, F.A.S.N. Date: 01/18/2024
--- OUTSIDE RECORDS SUMMARY | 2024-08-02 14:46 | XMS_ITS | CONTINUITY OF CARE DOCUMENT ---
Author Name yovani pina Address Unknown Organization [facility] Address [address] [place] [address] Phone [phone] Care Team Providers Care Stopboard Assembler Name Role Phone Mark TURNER, Wilder Unavailable SABRINA SIMON MD Unavailable [phone] SABRINA SIMON MD Unavailable [phone] PROBLEMS Condition Status Date Provider Notes Bradycardia active Mariana Ventimiglia OPTICIAN MANAGER Mitral regurgitation, mild active Mariana Ve ntimiglia OPTICIAN MANAGER Leg pain, right active Mariana Ventimiglia F PHYSICIAN [facility] Pulmonary hypertension active Wilder Flores MD Breast Cancer active Wilder Flores MD (Hist ory of) Hypertension active Wilder Flores MD Hyperlipidemia active Wilder Flores MD Cardiology examination active Wilder Flores MD ENCOUNTERS Date Type Provider Location Encounter Diag nosis - In-person encounter Office Visit Seymour Morales MD [facility] Office - In-person encounter Office Visit Wilder Flores MD [facility] - In-person encounter Office Visit Wilder Flores MD [facility] Bradycardia - In-person encounter Office Visit Wilder Flores MD [facility] - In-person encounter Office Visit Wilder Flores MD [facility] - In-person encounter Office Visit Wilder Flores MD [facility] Leg pain, rightMitral regurgitation, mil d - In-person encounter Office Visit Wilder Flores MD [facility] - In-person encounter Office Visit Wilder Flores MD [facility] Cardiology examinationHyperlipidemiaHypertensionBreast CancerPulmonary hypertension VITAL SIGNS [...] Nickie Anne blood pressure, systolic 174 mm[Hg] [facility] saturation, oximetry 97 % [facility] rate E&M 16 /min [facility] pulse rate 65 /min [facility] weight E&M 145 [lb_av] [facility] blood pressure, cuff size regular Nickie Anne height E&M 65 [in_i] Darianstefany Anne Body Mass Index (Ratio) 24.13 kg/m2 Judson Flores MD blood pressure, diastolic 83 mm[Hg] Taylor [employer] blood pressure, systolic 169 mm[Hg] Yaritza kLog blood pressure, cuff size regular [facility], diastolic 83 mm[Hg] [facility] blood pressure, systolic 169 mm[Hg] Lynette [facility] oxygen saturation, oximetry 98 % [place] respiratory rate E&M 16 /min [place] pulse rate 51 /min [place] weight E&M 145 [lb_av] [place] height E&M 65 [in_i] [place] Body Mass Index (Ratio) 24.29 kg/m2 Judson Flores MD blood pressure, cuff size regular Fabrice [facility] blood pressure, diastolic 67 mm[Hg] [facility] blood pressure, systolic 129 mm[Hg] Sunny [facility] pulse rate 57 /min [facility] oxygen saturation, oximetry 97 % [facility] respiratory rate E&M 12 /min [facility] weight E&M 146 [lb_av] Ernst height E&M 65 [in_i] Ernst [facility] y Body Mass Index (Ratio) 25.79 kg/m2 [...] Si ms pulse rate 79 /min Melissa Bradshaw blood pressure, cuff size regular Sa ra [...] % Chastity Radha pulse rate 71 /min [facility] height E&M 65 [in_i] [facility] weight E&M 175 [lb_av] [facility] respiratory rate E&M 16 /min Ron Garcia ALLERGIES Allergy Name Onset Date Reaction Criticality Status LOSARTAN High Criticality active HISTORY OF MEDICATION USE Medication Status Instructions Dates Provider Indications Com ments carvedilol 12.5 mg tablet active TAKE 1 TABLET BY MOUTH TWICE DAILY Gladys Rushi carvedilol 12.5 mg tablet completed Take 1 tablet by mouth twice a day [facility] mg tablet active TAKE 1 TABLET BY MOUTH TWICE A DAY Wilder Flores MD pantoprazole 20 mg tablet,delayed release (DR/EC) active TAKE 1 TABLET BY MOUTH EVERY MORNING Darian Anne nifedipine 90 mg tablet extended release 24hr active 1 tablet by mouth once a day Mariana Singhmiglia OPTICIAN MANAGER ferrous sulfate 324 mg (65 mg iron) tablet,delayed release (DR/EC) active TAKE 1 TABLET BY MOUTH EVERY DAY Nadine Ross pantoprazole 20 mg tablet,delayed release (DR/EC) completed TAKE 1 TABLET BY MOUTH EVERY DAY - Mariana Singhmiglia OPTICIAN MANAGER diltiazem HCl (Cardizem CD) 240 mg capsule,extende d release 24hr completed TAKE 1 CAPSULE BY MOUTH ONCE DAILY - Mariana Ventimiglia OPTICIAN MANAGER calcitriol 0.25 mcg capsule active Take 1 capsule by mouth once a day Ernst diltiazem HCl (Cardizem CD) 240 mg capsule,extende d release 24hr completed Take 1 capsule by mouth once a day - Ernst carvedilol 12.5 mg tablet completed TAKE 1 TABLET BY MOUTH TWICE DAILY - Mariana Ventimiglia OPTICIAN MANAGER diltiazem HCl 240 mg capsule,extende d release 24hr completed TAKE 1 CAPSULE BY MOUTH DAILY - Kassy Yancey hydralazine 25 mg tablet completed TAKE 1 TABLET BY MOUTH TWICE A DAY - Wilder Flores MD potassium chloride 20 mEq tablet,ER particles/cryst als active TAKE 1 TABLET BY MOUTH EVERY DAY [facility] furosemide 40 mg tablet active TAKE 1 TABLET DAILY Nadine Ross carvedilol 12.5 mg tablet completed Take 1 tablet by mouth twice a day - Gladys Mccoy diltiazem HCl 240 mg tablet extended release 24 hr completed 1 tablet once a day - Vreonica Erasto carvedilol 12.5 mg tablet completed Take [...] history of marijuana use no Mariana Mazariegos [facility] drug use no Mariana Singhmig reji [facility] alcohol use no Marianagregory Singhmig reji [facility] passive cigarette sm kate exposure no Marian[facility]regory [facility] smoking status Never smoker Mariana escalera [facility] personal history of marijuana use no Wilder Flores MD drug use no Wilder Wu alcohol use no Wilder Wu passive cigarette sm kate exposure no Wilder Flores MD smoking status Never smoker Wilder Flores MD personal history of marijuana use no Mariana Ventimiglia OPTICIAN MANAGER drug use no Nadine Ross alcohol use no Nadine Ross passive cigarette sm kate exposure no Nadine Ross smoking status Never smoker Nadine Ross drug use no Wilder Wu alcohol use no Wilder Wu passive cigarette sm kate exposure no Wilder Flores MD smoking status Never smoker Wilder Flores MD drug use no Mariana Ventimig reji OPTICIAN MANAGER alcohol use no Mariana Ventimig reji OPTICIAN MANAGER passive cigarette sm kate exposure no Abbie Rivera smoking status Never smoker Abbie Stafford drug use no Mariana Ventimig reji OPTICIAN MANAGER alcohol use no Mariana Ventimig reji OPTICIAN MANAGER passive cigarette sm kate exposure no Amena [...] Policy type / Coverage type Trish red republican ID [facility] COMPLETE CARE [id number] (PPO C-SNP) [employer] insurance [employer] [id number] HEALTHCARE AND FAMILY SERVICES Medicaid 0 [id number] ADVANCE DIRECTIVES Name Date DISCUSSED - NO DECISION MADE TREATMENT PLAN Date Name Performer [id number],C,A BI showed mild PAD. No reported symptoms at visit today Mariana Mazariegos [facility] [id number],Keniar amber on statin therapy H er updated medication list for this problem includes: Simvastatin 40 Mg Tablet (Simvastatin) ..... Take 1 tablet by mouth every day as directed Mariana Mazariegos [facility] [id number],C,B P 140/73 today which is acceptable for [...] Furosemide 40 Mg Tablet (Furosemide) Mariana Mazariegos [facility] [id number],Keniar amber unchanged on recent echo. EF of 60%. Will monitor Mariana Mazariegos [facility] [id number],Keniar amber on CCB. She will have f/u [...] a day Orders: 9 9214 MOD 30-39min (CPT-32367) C omplete Echo (CPT-22679) A rterial Duplex Bi-Lower EX (CPT-51052) Mariana Mazariegos [facility] [id number],C,s he reports RLE pain with ambulation and weak DP o nthe rt will plan OSCAR. O rders: 9 9214 MOD 30-39min (CPT-82964) C omplete Echo (CPT-71382) A rterial Duplex Bi-Lower EX (CPT-71684) Marianagregory Mazariegos [facility] [id number],C,o n statin therapy H er updated medication list for this problem includes: Simvastatin 40 Mg Tablet (Simvastatin) ..... Take 1 tablet by mouth every day as directed Marianagregory Mazariegos [facility] [id number],S,M ild on last echo with mod LVH. Given her systolic murmur, fatigue and HTN will do f/u echo to look for any new LV dysfunction or worsening valvular abnormaliies O rders: 9 14 MOD 30-39min (CPT-45341) C omplete Echo (CPT-52113) A rterial Duplex Bi-Lower EX (CPT-44291) Marianagregory Mazariegos [facility] [id number],C,B lood pressure elevated at visit today and [...] ..... 1 tablet once a day Marianagregory [facility] [id number],S, Wilder gutierrez MD [id number],S, Wilder gutierrez MD [id number],S, Wilder gutierrez MD [id number],C,I nsurance didn't cover irbesartan and patient allergic to losartan. Will start diltiazem. S et up remote patient monitoring (RPM) Wilder Flores MD [id number],S, Wilder gutierrez MD [id number],S, Wilder gutierrez MD [id number],C,Increase carv edilol Wilder Flores MD [id number],N,B y ECHO P atient with minimal symptoms at this time. Will check stress test. Wilder Flores MD Cardiology Mariana cobb [facility] Cardiology: H er updated medication list for this problem includes: Simvastatin 40 Mg Tablet (Simvastatin) ..... Take 1 tablet by mouth every day as directed Mariana Mazariegos [facility] Cardiology:EF normal [place] Vivian gao [facility] Cardiology:BP remain s elevated patient admits ran [...] ..... Take 1 tablet daily Mariana Mazariegos [facility] Cardiology Wilder Flores MD Cardiology: r emains [...] a day Orders: 9 9214 MOD 30-39min (CPT-41536) C omplete Echo (CPT-47484) A rterial Duplex Bi-Lower EX (CPT-52711) Wilder Flores MD Cardiology Wilder Flores MD Cardiology:This visi t has been a part of the consistent, comprehensive, and ongoing management of the chronic medical condition(s) listed above for the patient. I ncrease hydralazine to 50mg bid Wilder Flores MD Cardiology:Will update echo Les Torres [facility] Cardiology: H er updated medication list for this problem includes: Simvastatin 40 Mg Tablet (Simvastatin) ..... Take 1 tablet by mouth every day as directed Marianagregory Mazariegos [facility] Cardiology:With HR i n 50s on exam [...] tablet by mouth twice daily Mariana Mazariegos [facility] Cardiology:BP above goal today S top diltiazem [...] tablet by mouth twice daily Mariana Yair [facility] Cardiology Wilder Flores MD Cardiology Wilder Flores MD Cardiology Wilder Flores MD Cardiology Wlider Flores MD Cardiology:OSCAR showe d mild PAD. No reported symptoms at visit today [facility] Cardiology:remains o n statin therapy H er updated medication list for this problem includes: Simvastatin 40 Mg Tablet (Simvastatin) ..... Take 1 tablet by mouth every day as directed [facility] Cardiology:BP 140/73 today which is acceptable for [...] a day Furosemide 40 Mg Tablet (Furosemide) [facility] Cardiology:remains u nchanged on recent echo. EF of 60%. Will monitor Marianagregory Sloanamee [facility] Cardiology:remains o n CCB. She will have [...] once a day Orders: 9213 MOD 30-39min (CPT-98171) C omplete Echo (CPT-41090) A rterial Duplex Bi-Lower EX (CPT-27174) [facility] Cardiology:she repor ts RLE pain with ambulation and weak DP o nthe rt will plan OSCAR. O rders: 9213 MOD 30-39min (CPT-47585) C omplete Echo (CPT-79521) A rterial Duplex Bi-Lower EX (CPT-29130) [facility] Cardiology:on statin therapy H er updated medication list for this problem includes: Simvastatin 40 Mg Tablet (Simvastatin) ..... Take 1 tablet by mouth every day as directed [facility] Cardiology:Mild on l ast echo with mod LVH. Given her systolic murmur, fatigue and HTN will do f/u echo to look for any new LV dysfunction or worsening valvular abnormaliies O rders: 9213 MOD 30-39min (CPT-26899) C omplete Echo (CPT-75003) A rterial Duplex Bi-Lower EX (CPT-95822) [facility] Cardiology:Blood pre ssure elevated at [...]
--- OUTSIDE RECORDS SUMMARY | 2024-08-02 14:47 | XMS_ITS | Clinical Summary ---
Author Organization [facility] [employer] Address [address] [place] [address] Care Team Providers Care Molding Utility Worker Name Role Phone Cheryl Ramos MD Primary Care Provider Source Comments [facility] [employer],non-owned Affiliates and Associated Physician Practices is amultiple site organization consisting of ambulatory clinics and hospital sitesin [place], [place], [place] and [place]. This disclosure is being madepursuant to the Care Everywhere program and may not contain all information available regarding this patient. 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 Follow up PRN. Essential hypertension 07/28/2018 Assessment & Plan (03/12/2019 3:55 PM GAS PUMPING STATION SUPERVISOR): No changes today. Continue coreg 3.125mg BID, and Irbesartan/HCTZ 150/12.5mg. Hyperlipidemia 07/28/2018 Nonspecific abnormal electrocardiogram (ECG) (EK G) 07/28/2018 SPARKS (dyspnea on exertion) 07/28/2018 Assessment & Plan (03/12/2019 3:55 PM GAS PUMPING STATION SUPERVISOR): Suspect secondary to deconditioning. Follow UP PRN. [...] on file Legal Sex Female 8:43 AM GAS PUMPING STATION SUPERVISOR Gender Identity Not on file Sexual Orientation [...] Visit [facility] [address] [place] [address] Arvind Frye, PhD [address] [place] [address] 11/12/2024 1:00 PM CDT Office Visit [facility] [address] [facility], [place] [address] Skinny Costa MD [address] [facility] [address] [place] [address] Health Maintenance Due Date Last Done Comments [...] complete this topic Insurance MED[place]ID - [place] [facility] MANAGED MEDICARE ADV Advance Directives * Full Code (Latest Code Status on File) Date Activated Date Inactivated Comments 08/03/2018 3:27 PM 08/06/2018 2:22 PM Care Teams Molding Utility Worker Relationship Specialty Start Date End Date Cheryl Ramos MD [address] [place], [place] [phone] PCP - General 11/08/18
--- OUTSIDE RECORDS SUMMARY | 2024-08-02 14:47 | XMS_ITS | Clinical Summary ---
Author Organization [facility] Address [address] [place] [address] Care Team Providers Care Commercial Review Appraiser Name Role Phone Mark Ferrer MD, Wilder P Unavailable [phone] Cheryl Simon MD Primary Care Provider [phone] Allergies Active Allergy Reactions Criticality Noted Date [...] - 07/09/2024 11:59 PM CDT Hospital Encounter [facility] Mammography [address] [place] [address] Cehryl Simon MD Discharge Disposition: Home or Self [...] Sex Assigned at Female 04/30/2024 3:45 PM TOGGLE PRESS OPERATOR Legal Sex Female 5:55 PM CDT Gender Identity Not on file Sexual Orientation Not on file Last Filed Vital Signs Vital Sign Reading Time Taken Comments Blood Pressure 157/59 03/04/2023 12:40 PM TOGGLE PRESS OPERATOR Pulse 72 03/04/2023 12:40 PM TOGGLE PRESS OPERATOR Temperature 36.4 C (97.5 F) 03/04/2023 12:40 PM TOGGLE PRESS OPERATOR Respiratory Rate 16 03/04/2023 12:40 PM TOGGLE PRESS OPERATOR Oxygen Saturation 96% 03/04/2023 12:40 PM TOGGLE PRESS OPERATOR Inhaled Oxygen Concentration - - Weight 66.3 kg (146 lb 2.6 oz) 03/04/2023 9:00 A M TOGGLE PRESS OPERATOR Height 167.6 cm (5' 6 ) 03/04/2023 9:00 AM TOGGLE PRESS OPERATOR Body Mass Index 23.59 03/04/2023 9:00 AM TOGGLE PRESS OPERATOR Plan of Treatment Health Maintenance Due Date [...] Date/Time Associated Diagnosis Comments US BREAST RT OONiAD LTD Routine 07/09/2024 2:10 PM CDT Unspecified lump in the right breast, upper outer quadrant MG DIAG W NATHALIA RT DIGI Routine 07/09/2024 1:37 PM CDT Unspecified lump in the right breast, unspecified quadrant BONE DENSITY/DEXA Routine 05/30/2024 10: 17 AM TOGGLE PRESS OPERATOR Asymptomatic menopausal state from Last 3 Months Results * US BREAST RT OONiAD LTD (07/09/2024 2:10 PM CDT) Anatomical Region [...] 1:54 PM Narrative 07/09/2024 1:58 PM CDT [facility] [address] [place] [address] Examination: Unilateral right diagnostic mammogram and ultrasound [id number] Exam Date/Time: 07/09/2024 1:21 PM Reason For [...] Procedure Note Masood Mendenhall MD - 07/09/2024 [facility] [address] [place] [address] Examination: Unilateral right diagnostic mammogram and ultrasound [id number] Exam Date/Time: 07/09/2024 1:21 PM Reason For Exam: Palpable lump right breast. Prior left mastectomy for breast cancer. Comparison: 03/14/2023 Technique: Digital diagnostic mammography and ultrasound of the of therightbreast was performed. This study was read with the assistance of ac[employer]pt[employer] Industriesuter-aided detection system. 3D tomographic images were obtained. [...] 1:54 PM Narrative 07/09/2024 1:58 PM CDT [facility] [address] [place] [address] Examination: Unilateral right diagnostic mammogram and ultrasound [id number] Exam Date/Time: 07/09/2024 1:21 PM Reason For [...] Result * BONE DENSITY/DEXA (05/30/2024 10:17 AM TOGGLE PRESS OPERATOR) Anatomical Region Laterality Modality Bone Mammography 05/30/2024 10:2 2 AM TOGGLE PRESS OPERATOR Impressions 05/30/2024 10:22 AM TOGGLE PRESS OPERATOR IMPRESSION: WHO Classification: Osteopenia RECOMMENDATIONS: All patients [...] 05/30/2024 10:22 AM Narrative 05/30/2024 10:22 AM TOGGLE PRESS OPERATOR [facility] [address] [place] [address] EXAMINATION: BONE DENSITY/DEXA INDICATIONS: Asymptomatic menopausal state [...] Procedure Note Matthew Haji MD - 05/30/2024 [facility] [address] [place] [address] EXAMINATION: BONE DENSITY/DEXA INDICATIONS: Asymptomatic menopausal state [...] Result from Last 3 Months Insurance MEDICAID [facility] Care Teams Commercial Review Appraiser Relationship Specialty Start Date End Date Cheryl Simon MD [address] [place] [address] PCP - General INTERNAL MEDICINE 02/21/23 [place] [address] [phone] CARDIOVASCULAR DISEASE 02/21/23
--- OUTSIDE RECORDS SUMMARY | 2024-08-02 14:47 | XMS_ITS ---
Author Organization [facility] Address [address] [place], [place] [id number] Care Team Providers Care Vat Washer Name Role Phone KYLEIGH LEIVA Unavailable [phone] Cheryl Ramos Unavailable Unavailable Allergies Allergen (clinical drug ingredient) Drug/Non Drug Allergy documented on EMR Reaction Allergy Type Onset Date Status Shellfish (FN) Shellfish (uncoded) Unknown Allergy 04/26 active Iodine Unknown Drug Allergy 04/26/2022 active REASON FOR VISIT *General care Medications Medication SIG (Take, Route, Fr equency, Duration) Notes Start Date End Date Status Aspirin Active traMADol HCl 50 MG 1 tablet as needed O rally Every 4-6 hours for 5 days 03/10/2023 Not-T aking Vital Signs Height 67.00 in 01/03/2024 Weight 165 lbs 01/03/2024 BMI 25.84 kg/m2 01/03/2024 Height-cm 170.18 cm 01/03/2024 Weight-kg 74.84 kg 01/03/2024 Encounters Encounter Location Date Provider Diagnosis [facility] [address] [place], [place] [id number] 01/03/2024 KYLEIGH LEIVA Fungal infection of nail B35.1 ; Pain in right toe(s) M79.674 ; Pain in left toe(s) M79.675 and Atherosclerosis of [place] arteries of extremities with intermittent claudication, bilateral legs I70.213 Assessments Encounter Date Diagnosis (ICD Code) Assessment Notes Treatment Notes Treatment Clinical Notes Section Notes 01/03/2024 Fungal infection of nail (ICD-10 - B35.1) Nails 1-5 Bilateral were debrided extensively with nail nippers and emery board, reducing length and girth to pink healthy tissue with any subungual debris and necrotic tissue removed 01/03/2024 Pain in right toe(s) (ICD-10 - M79.674) 01/03/2024 Pain in left toe(s) (ICD-10 - M79.675) 01/03/2024 Atherosclerosis of [place] arteries of extremities with intermittent claudication, bilateral legs (ICD-10 - I70.213) Plan Of Treatment Treatment Notes Assessment Notes Fungal infection of nail Nails 1-5 Bilat eral were debrided extensively with nail nippers and emery board, reducing length and girth to pink healthy tissue with any subungual debris and necrotic tissue removed Next Appt Details Follow Up: 9 weeks, Reason: Provider Name:KYLEIGH LOMELI, 09/10/2024 02:20:00 PM, [address] [facility] [address], [facility] [address], [id number], Progress Notes * COURTNEY GRIGGSDOB: 7 (79 yo F)Acc No.[id number]:01/03/2024 Patient: COURTNEY MOISE Provider: Emilie Leiva DPM :1945 A ge:78 Y S ex:Female Date:01/03/2024 Address:[address] [place], [place] [id number] Subjective: * Chief Complaints: * * General [...] daily aspirin. Date last seen by Dr. Ramos was 11/2023. Initials sea. * ROS: G eneral / Constitutional: Patient denies c hange in appetite, fatigue, chills, fever.? C ardiovascular: Chest pain d enies. N eurologic: Loss of use of extremity d enies. * Medical History: * Surgical History: t onsillectomy Tubal Ligation Hysterectomy * Hospitalization/Major Diagno stic Procedure: * Medications: T akingAspirin Taking Aspirin Not-TakingtraMADol HCl 50 MG Tablet 1 tablet as needed Orally Every 4-6 hours Medication List reviewed and reconciled with the patientNot-Taking traMADol HCl 50 MG Tablet 1 tablet as needed Orally Every 4-6 hours Medication List reviewed and reconciled with the patient * Allergies: S hellfish: Allergy - Onset Date 04/26/2022Iodine: Allergy - Onset Date 04/26/2022 Objective: * Vitals: W t: 165 lbs, Wt-k.84 kg, Ht: 67.00 in, Ht-cm: 170.18 cm, BMI: 25.84 Index, Body Surface Area: 1.88. * Examination: P hysical Examination: Gen: T [...] - M79.675 4 . A therosclerosis of [place] arteries of extremities with intermittent claudication, bilateral legs - I70.213 ? Plan: * Treatment: * Procedure Codes: * Follow Up: 9 weeks * Billing Information: * Visit Code: [id number] Office Visit, Est Pt., Level 3. * Procedure Codes: * Sign off status: Completed true * Provider: Emilie Leiva DPM Date: Generated for Susanna george/Alexander/Adelfo on: 0 08/02/2024 02:47 PM CDT History and Physical Notes * [...] daily aspirin. Date last seen by Dr. Ramos was 11/2023. Initials sea Examination Category Sub-Category Detail Notes [...]
--- OUTSIDE RECORDS SUMMARY | 2024-08-02 14:47 | XMS_ITS ---
Author Organization [facility] Address [address] [place], [place] [address] Care Team Providers Care Enterprise Sales Person Name Role Phone KYLEIGH LEIVA Unavailable [phone] Cheryl Ramos Unavailable Unavailable REASON FOR VISIT *General care Medications Medication SIG (Take, Route, Fr equency, Duration) Notes Start Date End Date Status traMADol HCl 50 MG 1 tablet as needed O rally Every 4-6 hours for 5 days 03/10/2023 Active Encounters Encounter Location Date Provider Diagnosis [facility] [address] [place], [place] [id number] 03/12/2024 KYLEIGH LEIVA Fungal infection of nail B35.1 ; Pain in right toe(s) M79.674 ; Pain in left toe(s) M79.675 and Atherosclerosis of [place] arteries of extremities with intermittent claudication, bilateral [...] toe(s) (ICD-10 - M79.675) 03/12/2024 Atherosclerosis of [place] arteries of extremities with intermittent claudication, bilateral legs (ICD-10 - I70.213) Plan Of Treatment Treatment Notes Assessment Notes Fungal infection of nail Nails 1-5 Bilat eral were debrided extensively with nail nippers and emery board, reducing length and girth to pink healthy tissue with any subungual debris and necrotic tissue removed Next Appt Details Follow Up: 9 weeks, Reason: Provider Name:KYLEIGH C WENDI ARMNAI, 09/10/2024 02:20:00 PM, [address] [facility] [address], [facility] [address], [place], [id number], Progress Notes * INDU COURTNEYDOB: 7 (79 yo F)Acc No.[id number]:03/12/2024 Patient: COURTNEY MOISE Provider: Emilie Leiva DPM :1945 A ge:78 Y S ex:Female Date:03/12/2024 Address:[address] [place], [place] [id number] Subjective: * Chief Complaints: * * General [...] - M79.675 4 . A therosclerosis of [place] arteries of extremities with intermittent claudication, bilateral legs - I70.213 ? Plan: * Treatment: * Procedure Codes: * Follow Up: 9 weeks * Billing Information: * Visit Code: [id number] Office Visit, Est Pt., Level 3. * Procedure Codes: * Sign off status: Completed true * Provider: Emilie Leiva DPM Date: 05/13/2023 Generated for Susanna george/Alexander/Adelfo on: 0 08/02/2024 [...]
--- OUTSIDE RECORDS SUMMARY | 2024-08-02 14:47 | XMS_ITS ---
Author Organization [facility] Address [address] [address] [place] [address] Care Team Providers Care Rare/Endangered Species Specialist Name Role Phone Driss Morales Unavailable [phone] PROBLEMS Problem Type ICD Code Onset Dates Problem Status W/U Status Risk SNOMED Code Notes Problem Secondary hyperparathyroidism of renal origin (N25.81) Active confirmed Secondary hyperparathyroidism of renal origin (64157940) Problem Hypokalemia (E87.6) Active confirmed Hy pokalemia (12349318) Problem Type 2 diabetes mellitus with diabetic chronic kidney disease (E11.22) Active confirmed Diabetic renal disease (095827247) Problem Breast lump (N63.0) Active confirmed Br east lump (81651566) Encounters Encounter Location Date Provider Diagnosis [facility] [facility] [address] [facility] [address] [place] [address] 07/18/2024 Driss Morales Chronic kidney disea se, stage 2 (mild) N18.2 ; Essential (primary) hypertension I10 ; Proteinuria, unspecified R80.9 ; Renal osteodystrophy N25.0 ; Secondary hyperparathyroidism of renal origin N25.81 ; Vitamin D deficiency, unspecified E55.9 ; Hypokalemia E87.6 ; Type 2 diabetes mellitus with diabetic chronic kidney disease E11.22 and Breast lump N63.0 ASSESSMENTS Encounter Date Diagnosis Assessment Notes Treatment Notes Treatment Clinical Notes Section Notes 07/18/2024 Chronic kidney disea se, stage 2 (mild) (ICD-10 - N18.2) 07/18/2024 Essential (primary) hypertension (ICD-10 - I10) 07/18/2024 Proteinuria, unspecified (ICD-10 - R80.9) 07/18/2024 Renal osteodystrophy (ICD-10 - N25.0) 07/18/2024 Secondary hyperparathyroidism of renal origin (ICD-10 - N25.81) 07/18/2024 Vitamin D deficiency , unspecified (ICD-10 - E55.9) 07/18/2024 Hypokalemia (ICD-10 - E87.6) 07/18/2024 Type 2 diabetes mellitus with diabetic chronic kidney disease (ICD-10 - E11.22) 07/18/2024 Breast lump (ICD-10 - N63.0) PLAN OF TREATMENT No Information Progress Notes * COURTNEY GRIGGSDOB: 7 (79 yo F)Acc No.[id number]:07/18/2024 Patient: COURTNEY GRIGGS Provider: MD MARI, F.Tamara.C.P, F.A.S.N. :1945 Age:79 Y Sex:Female Date:07/18/2024 Address:[address] [place] [address] Subjective: * Chief Complaints: Objective: Assessment: * Assessment: 1. Chronic kidney disease, stage 2 (mild) - N18.2 (Primary) 2. Essential (primary) hypertension - I10 3. Proteinuria, unspecified - R80.9 4. Renal osteodystrophy - N25.0 5. Secondary hyperparathyroidism of renal origin - N25.81 6. Vitamin D deficiency, unspecified - E55.9 7. Hypokalemia - E87.6 8. Type 2 diabetes mellitus with diabetic chronic kidney disease - E11.22 9. Breast lump - N63.0 Plan: * Billing Information: * Visit Code: [id number] Office Visit, Est Pt., Level 5. * Procedure Codes: * Sign off status: Pending * Provider: MD MARI, F.Tamara.C.P, F.A.S.N. Date: 07/18/2024
--- OUTSIDE RECORDS SUMMARY | 2024-08-02 14:47 | XMS_ITS ---
Author Organization [facility] Address [address] [facility] [address] [facility] [address] [place] [address] Care Team Providers Care Brass Sorter Name Role Phone Driss Morales Unavailable [phone] Encounters Encounter Location Date Provider Diagnosis [facility] [address] [place] [address] 04/26/2024 I mayra Morales PLAN OF TREATMENT No Information Progress Notes * COURTNEY GRIGGSDOB: 7 (79 yo F)Acc No.[id number]:04/26/2024 Patient: COURTNEY GRIGGS Provider: MD MARI, Luma.Tamara.C.P, F.A.S.N. :1945 Age:78 Y Sex:Female Date:04/26/2024 Address:[address] [place] [address] Subjective: * Chief Complaints: Objective: Assessment: Plan: * Billing Information: * Visit Code: * Procedure Codes: * Sign off status: Pending * Provider: MD MARI, Luma.Tamara.C.P, F.A.S.N. Date: 04/26/2024
--- OUTSIDE RECORDS SUMMARY | 2024-08-02 14:47 | XMS_ITS | Patient Health Record ---
Author Organization [facility] Address [address] [place] [address] Care Team Providers Care Men'S And Boys' Clothing Salesperson Name Role Phone Driss Morales Unavailable [phone] REASON FOR REFERRAL No Information MEDICATIONS Medication SIG (Take, Route, Frequency, Duration) Notes Start Date End Date Status Calcitriol 0.25 MCG TAKE 1 CAPSULE BY [facility] ONCE DAILY for 30 Active Losartan Potassium 25 MG 1 tablet Orally Once a day for 90 day(s) 08/18/2022 Active PROBLEMS Problem Type ICD Code Onset Dates Problem Status W/U Status Risk SNOMED Code Notes Problem Type 2 diabetes mellitus with diabetic chronic kidney disease (E11.22) Active confirmed Diabetic renal disease (996798786) Problem Vitamin D deficiency , unspecified (E55.9) Active confirmed Vitamin D deficiency (93894368) Problem Hypokalemia (E87.6) Active confirmed Hy pokalemia (51139338) Problem Essential (primary) hypertension (I10) Active confirmed Essential hypertension (29492943) Problem Chronic kidney disease, stage 2 (mild) (N18.2) Active confirmed Chronic kidne y disease stage 2 (975963517) Problem Renal osteodystrophy (N25.0) Active confirmed Renal osteodyst rophy (64372453) Problem Secondary hyperparathyroidism of renal origin (N25.81) Active confirmed Secondary hyperparathyroidism of renal origin (40345255) Problem Proteinuria, unspecified (R80.9) Active confirmed Proteinu kaushal (82893553) Problem Breast lump (N63.0) Active confirmed Br east lump (98613191) Encounters Encounter Location Date Provider Diagnosis [place] [facility] [address] [facility] [address] [place] [address] 08/03/2023 Driss Morales Chronic kidney disea se, stage 3a N18.31 ; Essential (primary) hypertension I10 ; Proteinuria, unspecified R80.9 ; Renal osteodystrophy N25.0 and Vitamin D deficiency, unspecified E55.9 [facility] [address] [address] 11/09/2023 Driss Morales [facility] [address] [place] [address] 11/16/2023 Driss Morales Chronic kidney disea se, stage 2 (mild) N18.2 ; Essential (primary) hypertension I10 ; Proteinuria, unspecified R80.9 ; Renal osteodystrophy N25.0 and Vitamin D deficiency, unspecified E55.9 [facility] [address] [address] 01/18/2024 Driss Morales Chronic kidney disea se, stage 2 (mild) N18.2 ; Essential (primary) hypertension I10 ; Proteinuria, unspecified R80.9 ; Renal osteodystrophy N25.0 and Vitamin D deficiency, unspecified E55.9 [facility] [address] [place] [address] 04/26/2024 Driss Morales [facility] [address] [address] 07/18/2024 Driss Morales Chronic kidney disea se, stage 2 (mild) N18.2 ; Essential (primary) hypertension I10 ; Proteinuria, unspecified R80.9 ; Renal osteodystrophy N25.0 ; Secondary hyperparathyroidism of renal origin N25.81 ; Vitamin D deficiency, unspecified E55.9 ; Hypokalemia E87.6 ; Type 2 diabetes mellitus with diabetic chronic kidney disease E11.22 and Breast lump N63.0 [facility] [address] [address] 08/03/2023 Driss Morales [facility] [address] [address] 08/25/2023 Driss Morales ASSESSMENTS Encounter Date Diagnosis Assessment Notes Treatment Notes Treatment Clinical Notes Section Notes 08/03/2023 Chronic kidney disea se, stage 3a (ICD-10 - N18.31) 11/16/2023 Chronic kidney disea se, stage 2 (mild) (ICD-10 - N18.2) 01/18/2024 Chronic kidney disea se, stage 2 (mild) (ICD-10 - N18.2) 07/18/2024 Chronic kidney disea se, stage 2 (mild) (ICD-10 - N18.2) 07/18/2024 Essential (primary) hypertension (ICD-10 - I10) 11/16/2023 Essential (primary) hypertension (ICD-10 - I10) 01/18/2024 Essential (primary) hypertension (ICD-10 - I10) 08/03/2023 Essential (primary) hypertension (ICD-10 - I10) 01/18/2024 Proteinuria, unspecified (ICD-10 - R80.9) 11/16/2023 Proteinuria, unspecified (ICD-10 - R80.9) 08/03/2023 Proteinuria, unspecified (ICD-10 - R80.9) 07/18/2024 Proteinuria, unspecified (ICD-10 - R80.9) 07/18/2024 Renal osteodystrophy (ICD-10 - N25.0) 11/16/2023 Renal osteodystrophy (ICD-10 - N25.0) 01/18/2024 Renal osteodystrophy (ICD-10 - N25.0) 08/03/2023 Renal osteodystrophy (ICD-10 - N25.0) 08/03/2023 Vitamin D deficiency , unspecified (ICD-10 - E55.9) 01/18/2024 Vitamin D deficiency , unspecified (ICD-10 - E55.9) 11/16/2023 Vitamin D deficiency , unspecified (ICD-10 - E55.9) 07/18/2024 Secondary hyperparathyroidism of renal origin (ICD-10 - N25.81) 07/18/2024 Vitamin D deficiency , unspecified (ICD-10 - E55.9) 07/18/2024 Hypokalemia (ICD-10 - E87.6) 07/18/2024 Type 2 diabetes mellitus with diabetic chronic kidney disease (ICD-10 - E11.22) 07/18/2024 Breast lump (ICD-10 - N63.0) PLAN OF TREATMENT No Information
== END 2024-08-02 13:58 | disposition home or self-care (01) ==
PROVIDERS: PCP Internal Medicine Infectious Disease; Visit Provider Surgery
DX: C50.812 Malignant neoplasm of overlapping sites of left female breast (principal); Z85.3 Personal history of malignant neoplasm of breast
CPT/HCPCS: 19083; 88305; 88342; A4648